=== PATIENT | female | born 1960 | race Caucasian/White ===

== ENCOUNTER 2020-05-14 07:36 | Day surgery (SDC) | payer MEDICAID, SELFPAY ==
[2020-05-08 10:54] VITALS: BMI 27.9
--- NOTE | 2020-05-09 08:16 | MHC.SHP ---
Pre-Procedural Eval Section A The patient is an INPATIENT: No The History & Physical has been completed within 30 days and I have reviewed it.: Yes Section B Chief Complaint: Left Eye Cataract Allergies: Allergies Allergy/AdvReac Type Severity Reaction Status Date / Time Sulfa (Sulfonamide Allergy Unknown RASH Verified 05/08/20 10:45 Antibiotics) [SULFA (SULFONAMIDE ANTIBIOTICS)] sulfamethoxazole Allergy Unknown rash Verified 05/08/20 10:45 morphine [MORPHINE] AdvReac Unknown VOMITING Verified 05/08/20 10:45 Plan Diagnosis/Plan: Unchanged Patient has been examined and remains a candidate for the planned procedure
--- NOTE | 2020-05-14 07:52 | HO.ANESPROP2 ---
[facility] Past Medical History Medical History (Updated 05/08/20 @ 10:54 by Marisabel Garcia) Arthritis Diabetes mellitus, insulin dependent (IDDM), controlled Hx of ectopic Hx of fall Peripheral neuropathy Surgical History Surgical History (Updated 05/08/20 @ 10:43 by Marisabel Garcia) History of Hx laparoscopic cholecystectomy Hx of appendectomy Hx of colonoscopy Hx of left breast biopsy Hx of non-cataract eye surgery Hx of ovarian cystectomy Hx of tubal ligation Social History Social History (Updated 05/08/20 @ 10:44 by Marisabel Garcia) Alcohol intake: never Smoking Status: Current every day smoker Cigarettes Per Day: 10 Years Smoked: 25 Advance Directives: No Advance Directives Information Provided: No Advance Directives on File: No Meds Allergies Allergy/AdvReac Type Severity Reaction Status Date / Time Sulfa (Sulfonamide Allergy Unknown RASH Verified 05/08/20 10:45 Antibiotics) [SULFA (SULFONAMIDE ANTIBIOTICS)] sulfamethoxazole Allergy Unknown rash Verified 05/08/20 10:45 morphine [MORPHINE] AdvReac Unknown VOMITING Verified 05/08/20 10:45 Home Medications Medication Instructions Recorded Confirmed Type diclofenac potassium 25 mg PO BID 05/08/20 05/08/20 History gabapentin 600 mg PO TID 05/08/20 05/08/20 History insulin glargine [Lantus Solostar 50 unit SUBCUT QPM 05/08/20 05/08/20 History U-100 Insulin] lisinopril 10 mg PO DAILY 05/08/20 05/08/20 History metformin 1,000 mg PO BID 05/08/20 05/08/20 History sitagliptin [Januvia] 100 mg PO DAILY 05/08/20 05/08/20 History Exam Exam Date and Time: May 14, 2020 0752 Height,Weight and Vital Signs: Height 5 ft 5 in Weight 76.204 kg Airway Mallampati Class: II TM Dist: >3cm Neck ROM: Full Denture: Upper Heart: RRR Lungs: CTA BL Assessment and Plan Assessment Anesthesia Assessment: Anesthesia Plan Discussed and Chart Reviewed Final Anesthetic Review NPO: No ASA Class: II Final Preanesthetic Review: Meds/Allgs Chart Reviewed and Consent Obtained/Reviewed Patient Risk: Low Procedure Risk: Low Anesthetic Plan Anesthetic Plan: MAC: Disposition: Standard PACU
[2020-05-14 08:01] LABS: Glucose, Whole Blood 115 mg/dL (60-115)
[2020-05-14 08:02] VITALS: BP 142/54; PULSE 83; RESP 16; TEMP 35.9; O2SAT 97
[2020-05-14] MEDS: Tetracaine HCl/PF 0.5% Oph Sol 4 ML DROPS 1 DROP EYE-LEFT (08:05)
[2020-05-14] MEDS: Tropicamide 1 % Ophth Sol 3 ML BTL 1 DROP EYE-LEFT ×3 (08:09→08:18)
[2020-05-14] MEDS: Lactated Ringers 500 ML 50 ML IV (08:10)
--- NOTE | 2020-05-14 09:54 | HO.PNOPHT ---
Ophthalmology Procedure Procedure Date of Service: 05/14/20 Ophthalmology Viscoelastic: Healon Duet Dual Pack Pro Ophthalmology Lenses: [id number] (20) Procedure Notes: PREOPERATIVE DIAGNOSIS: Decreased visual acuity left eye secondary to cataract POSTOPERATIVE DIAGNOSIS: Same PROCEDURE: Left cataract extraction with intraocular lens insertion SURGEON: Brad Soni M.D. ANESTHESIA: Topical/MAC ESTIMATED BLOOD LOSS: None COMPLICATIONS: None After obtaining informed consent, the patient was brought to the operation room suite and placed in the supine position. After adequate sedation per anesthesia, topical drops of Tetracaine were given to the left eye. The eye was then prepped and draped in the usual sterile fashion. The operating room microscope was then positioned over the operative eye and a lid speculum placed. A paracentesis was created. Viscoelastic was then instilled into the anterior chamber. A three plane incision was then created temporally, utilizing a 2.85 mm keratome. Capsulotomy forceps were then utilized to create a circular tear capsulotomy. Hydrodissection and hydrodelineation were carried out until adequate mobilization of the nucleus occurred. Phacoemulsification was then utilized to remove the dense central nucleus followed by removal of the cortical material utilizing the automated aspiration irrigation unit. Viscoat elastic was instilled into the posterior capsular bag followed by placement of a posterior chamber intraocular lens without difficulty. The residual Viscoat elastic was then removed utilizing the automated IA machine. The wound was check and found to be watertight. The patient tolerated the procedure well and the lid speculum was removed. Intracameral injection of Vigamox 0.1 mL followed by a subtenon injection of Kenalog-40 0.2 mL were administered. The patient will be seen in the a.m.
[2020-05-14 09:55] VITALS: BP 129/62; PULSE 82; RESP 15; TEMP 36.2; O2SAT 99
== END 2020-05-14 10:09 | disposition home or self-care (01) ==
PROVIDERS: Visit Provider Ophthalmology
PROC: (CPT 66985; principal; 2020-05-14 09:30)
DX: H25.12 Age-related nuclear cataract, left eye (principal); H54.7 Unspecified visual loss; E11.3 Type 2 diabetes mellitus with ophthalmic complications; E11.3591 Type 2 diabetes mellitus with proliferative diabetic retinopathy without macular edema, right eye; G62.9 Polyneuropathy, unspecified; M19.041 Primary osteoarthritis, right hand; Z79.4 Long term (current) use of insulin; Z79.899 Other long term (current) drug therapy; F17.210 Nicotine dependence, cigarettes, uncomplicated; Z90.49 Acquired absence of other specified parts of digestive tract
CPT/HCPCS: 66984; 82947; J2250; J3010; J3300; V2632

== ENCOUNTER 2020-05-28 08:02 | Day surgery (SDC) | payer MEDICAID, SELFPAY ==
[2020-05-08 10:57] VITALS: BMI 27.9
--- NOTE | 2020-05-18 16:35 | MHC.SHP ---
Pre-Procedural Eval Section A The patient is an INPATIENT: No The History & Physical has been completed within 30 days and I have reviewed it.: Yes Section B Chief Complaint: Right Eye Cataract Allergies: Allergies Allergy/AdvReac Type Severity Reaction Status Date / Time Sulfa (Sulfonamide Allergy Unknown RASH Verified 05/08/20 10:45 Antibiotics) [SULFA (SULFONAMIDE ANTIBIOTICS)] sulfamethoxazole Allergy Unknown rash Verified 05/08/20 10:45 morphine [MORPHINE] AdvReac Unknown VOMITING Verified 05/08/20 10:45 Plan Diagnosis/Plan: Unchanged Patient has been examined and remains a candidate for the planned procedure
--- NOTE | 2020-05-21 14:24 | HO.ANESPROP2 ---
Documented by User: Mariana Martínez 05/21/20 14:25 HPI - Anesthesia Eval Consult details Narrative: 59yo F for Cataract Extraction 1st eye: Fent 50, Midaz 2 PMFSH Past Medical History Medical History Arthritis Diabetes mellitus, insulin dependent (IDDM), controlled Hx of ectopic Hx of fall Peripheral neuropathy Surgical History Surgical History History of Hx laparoscopic cholecystectomy Hx of appendectomy Hx of colonoscopy Hx of left breast biopsy Hx of left cataract extraction Hx of non-cataract eye surgery Hx of ovarian cystectomy Hx of tubal ligation Social History Social History Alcohol intake: never Smoking Status: Current every day smoker Cigarettes Per Day: 10 Years Smoked: 25 Use of substances other than those prescribed or required for medical reasons: No Advance Directives: No Advance Directives Information Provided: No Advance Directives on File: No Meds Allergies Allergy/AdvReac Type Severity Reaction Status Date / Time Sulfa (Sulfonamide Allergy Unknown RASH Verified 05/08/20 10:45 Antibiotics) [SULFA (SULFONAMIDE ANTIBIOTICS)] sulfamethoxazole Allergy Unknown rash Verified 05/08/20 10:45 morphine [MORPHINE] AdvReac Unknown VOMITING Verified 05/08/20 10:45 Home Medications Medication Instructions Recorded Confirmed Type diclofenac potassium 25 mg PO BID 05/08/20 05/08/20 History gabapentin 600 mg PO TID 05/08/20 05/08/20 History insulin glargine [Lantus Solostar 50 unit SUBCUT QPM 05/08/20 05/08/20 History U-100 Insulin] lisinopril 10 mg PO DAILY 05/08/20 05/08/20 History metformin 1,000 mg PO BID 05/08/20 05/08/20 History sitagliptin [Januvia] 100 mg PO DAILY 05/08/20 05/08/20 History Exam Exam Date and Time: May 21, 2020 1424 Height,Weight and Vital Signs: Height 5 ft 5 in Weight 76.204 kg Assessment and Plan Assessment Anesthesia Assessment: Chart Reviewed Documented by User: Susy Lawrence 05/28/20 09:16 [facility] Past Medical History Medical History Arthritis Diabetes mellitus, insulin dependent (IDDM), controlled Hx of ectopic Hx of fall Peripheral neuropathy Surgical History Surgical History History of Hx laparoscopic cholecystectomy Hx of appendectomy Hx of colonoscopy Hx of left breast biopsy Hx of left cataract extraction Hx of non-cataract eye surgery Hx of ovarian cystectomy Hx of tubal ligation Social History Social History Alcohol intake: never Smoking Status: Current every day smoker Cigarettes Per Day: 10 Years Smoked: 25 Use of substances other than those prescribed or required for medical reasons: No Advance Directives: No Advance Directives Information Provided: No Advance Directives on File: No Meds Allergies Allergy/AdvReac Type Severity Reaction Status Date / Time Sulfa (Sulfonamide Allergy Unknown RASH Verified 05/08/20 10:45 Antibiotics) [SULFA (SULFONAMIDE ANTIBIOTICS)] sulfamethoxazole Allergy Unknown rash Verified 05/08/20 10:45 morphine [MORPHINE] AdvReac Unknown VOMITING Verified 05/08/20 10:45 Home Medications Medication Instructions Recorded Confirmed Type diclofenac potassium 25 mg PO BID 05/08/20 05/08/20 History gabapentin 600 mg PO TID 05/08/20 05/08/20 History insulin glargine [Lantus Solostar 50 unit SUBCUT QPM 05/08/20 05/08/20 History U-100 Insulin] lisinopril 10 mg PO DAILY 05/08/20 05/08/20 History metformin 1,000 mg PO BID 05/08/20 05/08/20 History sitagliptin [Januvia] 100 mg PO DAILY 05/08/20 05/08/20 History Exam Airway Mallampati Class: I TM Dist: >3cm Neck ROM: Full Denture: Upper Loose/Missing/Broken Teeth: Yes, Upper and Lower Heart: RRR Lungs: CTA Assessment and Plan Assessment Anesthesia Assessment: Anesthesia Plan Discussed and Chart Reviewed Final Anesthetic Review NPO: Yes ASA Class: II Final Preanesthetic Review: Meds/Allgs Chart Reviewed, Consent Obtained/Reviewed and Anes Risks/Benef Reviewed Patient Risk: Intermediate Procedure Risk: Low Anesthetic Plan Anesthetic Plan: MAC: Disposition: Standard PACU
[2020-05-28 08:18] VITALS: BP 133/68; PULSE 79; RESP 18; TEMP 36.3; O2SAT 100
[2020-05-28 09:07] LABS: Glucose, Whole Blood 154 mg/dL (60-115)
[2020-05-28] MEDS: Tetracaine HCl/PF 0.5% Oph Sol 4 ML DROPS 1 DROP EYE-RIGHT (09:19)
[2020-05-28] MEDS: Tropicamide 1 % Ophth Sol 3 ML BTL 1 DROP EYE-RIGHT ×3 (09:20→09:28)
[2020-05-28] MEDS: Lactated Ringers 500 ML 50 ML IV (09:26)
--- NOTE | 2020-05-28 10:05 | HO.PNOPHT ---
Ophthalmology Procedure Procedure Date of Service: 05/28/20 Ophthalmology Viscoelastic: Healon Duet Dual Pack Pro Ophthalmology Lenses: TECСЕРГЕЙ [id number] (20) Procedure Notes: PREOPERATIVE DIAGNOSIS: Decreased visual acuity right eye secondary to cataract POSTOPERATIVE DIAGNOSIS: Same PROCEDURE: Right cataract extraction with intraocular lens insertion SURGEON: Brad Soni M.D. ANESTHESIA: Topical/MAC ESTIMATED BLOOD LOSS: None COMPLICATIONS: None After obtaining informed consent, the patient was brought to the operating room suite and placed in the supine position. After adequate sedation per anesthesia, topical drops of Tetracaine were given to the right eye. The eye was then prepped and draped in the usual sterile fashion. The operating room microscope was then positioned over the operative eye and a lid speculum placed. A paracentesis was created. Viscoelastic was then instilled into the anterior chamber. A three plane incision was then created temporally, utilizing a 2.85 mm keratome. Capsulotomy forceps were then utilized to create a circular tear capsulotomy. Hydrodissection and hydrodelineation were carried out until adequate mobilization of the nucleus occurred. Phacoemulsification was then utilized to remove the dense central nucleus followed by removal of the cortical material utilizing the automated aspiration irrigation unit. Viscoelastic was instilled into the posterior capsular bag followed by placement of a posterior chamber intraocular lens without difficulty. The residual Viscoelastic was then removed utilizing the automated IA machine. The wound was checked and found to be watertight. The patient tolerated the procedure well and the lid speculum was removed. Intracameral injection of Vigamox 0.1 mL followed by a subtenon injection of Kenalog-40 0.2 mL were administered. The patient will be seen in the a.m.
[2020-05-28 10:06] VITALS: BP 135/66; PULSE 76; RESP 18; TEMP 36.2; O2SAT 100
== END 2020-05-28 10:30 | disposition home or self-care (01) ==
PROVIDERS: Visit Provider Ophthalmology
PROC: (CPT 66985; principal; 2020-05-28 10:20)
DX: H25.11 Age-related nuclear cataract, right eye (principal); H54.7 Unspecified visual loss; E11.3591 Type 2 diabetes mellitus with proliferative diabetic retinopathy without macular edema, right eye; E11.3 Type 2 diabetes mellitus with ophthalmic complications; Z79.4 Long term (current) use of insulin; F17.210 Nicotine dependence, cigarettes, uncomplicated; Z88.0 Allergy status to penicillin; Z88.8 Allergy status to other drugs, medicaments and biological substances
CPT/HCPCS: 66984; 82947; J2250; J3010; J3300; V2632

== ENCOUNTER 2020-08-17 08:08 | Outpatient (RCR) | payer MEDICARE, OTHER, MEDICAID, SELFPAY | END 2021-04-05 15:15 | disposition home or self-care (01) | LOC: HO.WCC 08:08 | PROVIDERS: PCP Internal Medicine; Visit Provider Physician Assistant | DX: E11.621 Type 2 diabetes mellitus with foot ulcer (principal); E11.51 Type 2 diabetes mellitus with diabetic peripheral angiopathy without gangrene; L97.512 Non-pressure chronic ulcer of other part of right foot with fat layer exposed; E11.40 Type 2 diabetes mellitus with diabetic neuropathy, unspecified; F17.200 Nicotine dependence, unspecified, uncomplicated; L84 Corns and callosities; Z79.4 Long term (current) use of insulin | CPT/HCPCS: 11042; 15275; 97597; 99212; Q4160 ==

== ENCOUNTER 2020-09-03 09:58 | Outpatient (REF) | payer OTHER, SELFPAY ==
[2020-09-03 11:43] LABS: Estimated Average Glucose 200 mg/dL; Hemoglobin A1c % 8.6 %
[2020-09-03 11:44] LABS: Hematocrit 41.2 % (37-47); Hemoglobin 13.1 g/dl (12.0-16.0); Mean Corpuscular HGB Conc 31.8 g/dl (31.0-35.0); Mean Corpuscular Hemoglobin 28.6 pg (27.0-33.0); Mean Platelet Volume 9.7 fL (9.4-12.3); Platelet Count 253 X10*3/uL (160-400); Red Blood Count 4.58 X10*6/uL (4.20-5.50); Red Cell Distribution Width 14.3 % (11.0-16.0); White Blood Count 6.8 X10*3/uL (4.8-10.8)
[2020-09-03 12:04] LABS: Thyroid Stimulating Hormone 1.66 uIU/mL (0.32-4.0)
[2020-09-03 12:08] LABS: Alanine Aminotransferase 16 U/L (0-31); Albumin Level 4.5 g/dL (3.5-5.0); Alkaline Phosphatase 98 U/L (39-117); Anion Gap 14 (12-20); Aspartate Amino Transferase 16 U/L (5-31); Bilirubin Direct < 0.2 mg/dL (0.0-0.5); Bilirubin Total 0.2 mg/dL (0.0-1.0); Blood Urea Nitrogen 29 mg/dL (9-16); Calcium 9.6 mg/dL (8.4-10.2); Carbon Dioxide 25 mmol/L (22-29); Chloride 105 mmol/L (96-108); Cholesterol 217 mg/dL; Estimated Glomerular Filt Rate 53; Glucose Random 153 mg/dL (60-115); HDL Cholesterol 52 mg/dL; LDL Cholesterol Calculated 116 mg/dl; Potassium 5.7 mmol/L (3.3-5.1); Sodium 138 mmol/L (135-145); Total Protein 8.1 g/dL (6.5-8.0); Triglycerides 247 mg/dL
[2020-09-03 12:39] LABS: Vitamin B12 315 pg/mL (200-900)
[2020-09-07 14:21] LABS: Vitamin D 25-OH, D2 <4 ng/mL; Vitamin D 25-OH, D3 25 ng/mL; Vitamin D 25-OH, Total 25 ng/mL (30-100)
== END 2020-09-03 09:59 | disposition home or self-care (01) ==
LOC: HO.HMGCLDS 09:58
PROVIDERS: PCP Internal Medicine; Visit Provider Internal Medicine
DX: E11.9 Type 2 diabetes mellitus without complications (principal); Z79.4 Long term (current) use of insulin; S91.302A Unspecified open wound, left foot, initial encounter; X58.XXXA Exposure to other specified factors, initial encounter; Y93.9 Activity, unspecified; Y92.9 Unspecified place or not applicable; Y99.9 Unspecified external cause status
CPT/HCPCS: 36415; 80048; 80061; 80076; 82306; 82607; 82746; 83036; 84443; 85027

== ENCOUNTER 2020-09-06 09:43 | Outpatient (REF) | payer OTHER, SELFPAY ==
--- NOTE | ~2020-09-06 | US_ITS ---
EXAMINATION: COLOR-FLOW DUPLEX IMAGING OF THE UNILATERAL RIGHT LOWER EXTREMITY ARTERIAL SYSTEM. VELOCITY MEASUREMENTS THROUGHOUT THE FEMORAL ARTERIES CLINICAL INFORMATION: This is a 59-year-old female with history of diabetes. Right foot ulcer. Interventional Radiologist: Suman Shepard M.D., F.S.I.R., F.A.C.R. RIGHT FEMORAL RUNOFF VELOCITIES: The right common femoral artery measures 115 cm/s and triphasic. The right profunda femoral artery is 86 cm/s and is triphasic. Right proximal superficial femoral artery measures 208 cm/s and biphasic. Mid superficial femoral artery is 137 cm/s and triphasic. Distal right superficial femoral artery measures 152 cm/s and is triphasic. Right popliteal velocity measures 120 cm/s and is triphasic. The posterior tibial artery velocity measures 87 cm/s and was triphasic. US/US arterial duplex LE RT IMPRESSION: 1. There is a hemodynamically significant stenosis in the proximal right superficial femoral artery with antegrade velocities and biphasic waveforms.
== END 2020-09-06 09:44 | disposition home or self-care (01) ==
LOC: HO.US 09:43
PROVIDERS: Visit Provider Physician Assistant
DX: E11.621 Type 2 diabetes mellitus with foot ulcer (principal); E11.51 Type 2 diabetes mellitus with diabetic peripheral angiopathy without gangrene; L97.512 Non-pressure chronic ulcer of other part of right foot with fat layer exposed; Z72.0 Tobacco use
CPT/HCPCS: 93926

== ENCOUNTER → 2020-09-18 10:23 | Outpatient (BNVA) | payer OTHER, SELFPAY | PROVIDERS: PCP Internal Medicine; Visit Provider Surgery Vascular Surgery | DX: I73.9 Peripheral vascular disease, unspecified (principal) | CPT/HCPCS: 99202 ==

== ENCOUNTER 2020-12-03 08:16 | Outpatient (REF) | payer OTHER, SELFPAY ==
--- NOTE | ~2020-12-03 | US_ITS ---
EXAMINATION: US NONINVASIVE ASSESSMENT OF THE ARTERIES OF BOTH LOWER EXTREMITIES INCLUDING PVR EXAM AND BILATERAL LOWER EXTREMITY DUPLEX CLINICAL INFORMATION: Peripheral vascular disease, unspecified. COMPARISON: Ultrasound 09/06/2020 TECHNIQUE: Ankle pulse volume recordings, ankle pressure measurements and ankle brachial indices were obtained of the lower extremity arterial system bilaterally in addition to duplex Doppler techniques with wave form analysis and measurement of velocities in the common femoral, profunda femoral, superficial femoral, popliteal, tibial and peroneal arteries. The study was performed only at rest. FINDINGS: RIGHT LEG 1. Right Ankle-Brachial Index: 1.27. >0.97-1.25 = normal - no significant arterial disease 0.75-0.96 = mild peripheral arterial disease 0.5-0.74 = moderate peripheral arterial disease <0.50 = severe peripheral arterial disease <0.30 = critical arterial disease 2. Segmental Pressures (mmHg): Ankle: PT 190, DP 178 3. PVR Waveforms: Ankle: Loss of dicrotic notch 4. Direct Duplex: Common femoral artery: 124 cm/s, Multiphasic Profunda femoris artery: 101 cm/s, Multiphasic Superficial femoral artery (proximal): 215 cm/s, Multiphasic Superficial femoral artery (mid): 152 cm/s, Multiphasic Superficial femoral artery (distal): 128 cm/s, Multiphasic Popliteal artery: 174 cm/s, Multiphasic Mid posterior tibial artery: 146 cm/s, Multiphasic Peroneal artery: 69.8 cm/s, Multiphasic LEFT LE. Left Ankle-Brachial Index: 1.11 (higher of the DP/PT) >0.97-1.25 = normal - no significant arterial disease 0.75-0.96 = mild peripheral arterial disease 0.5-0.74 = moderate peripheral arterial disease <0.50 = severe peripheral arterial disease <0.30 = critical arterial disease 2. Segmental Pressures: Ankle: PT 162, DP 167 3. PVR Waveforms: Ankle: Loss of dicrotic notch, decreased amplitude when compared with the right 4. Direct Duplex: Common femoral artery: 129 cm/s, Biphasic Profunda femoris artery: 143 cm/s, Biphasic Superficial femoral artery (proximal): 145 cm/s, Biphasic Superficial femoral artery (mid): 126 cm/s, Biphasic Superficial femoral artery (distal): 211 cm/s, Biphasic Popliteal artery: 90.3 cm/s, Biphasic Posterior tibial artery: 109 cm/s, Multiphasic Peroneal artery: 53 cm/s, Biphasic US/US arterial duplex LE BI IMPRESSION: Right ankle-brachial index 1.27, left ankle-brachial index 1.11. PVR waveforms at the ankle demonstrate loss of dicrotic notch bilaterally with decreased amplitude on the left. On direct duplex, there is multiphasic flow throughout the right lower extremity. On the left, there are biphasic waveforms throughout much of the left lower extremity. Findings suggest multifocal mild disease bilaterally, left greater than right. In particular, elevated velocity at the right proximal SFA and the distal left SFA may be suggestive of focal disease at these locations.
== END 2020-12-03 08:17 | disposition home or self-care (01) ==
LOC: HO.US 08:16
PROVIDERS: PCP Internal Medicine; Visit Provider Surgery Vascular Surgery
DX: I70.213 Atherosclerosis of native arteries of extremities with intermittent claudication, bilateral legs (principal)
CPT/HCPCS: 93923; 93925

== ENCOUNTER 2020-12-18 08:56 | Outpatient (REF) | payer OTHER, SELFPAY ==
[2020-12-18 11:12] LABS: Glucose Urine UA NEG (NEG); Leukocyte Esterase Urine NEG (NEG); Nitrite Urine NEG (NEG); Urine Blood NEG (NEG); Urine Ketones NEG (NEG); Urine Protein NEG (NEG-TRACE)
[2020-12-18 11:18] LABS: Appearance Urine CLEAR; Color Urine YELLOW
[2020-12-18 11:20] LABS: Hematocrit 36.1 % (37-47); Hemoglobin 11.8 g/dl (12.0-16.0); Mean Corpuscular HGB Conc 32.7 g/dl (31.0-35.0); Mean Corpuscular Volume 88.7 fL (80-98); Mean Platelet Volume 9.6 fL (9.4-12.3); Platelet Count 255 X10*3/uL (160-400); Red Blood Count 4.07 X10*6/uL (4.20-5.50); Red Cell Distribution Width 14.5 % (11.0-16.0); White Blood Count 6.9 X10*3/uL (4.8-10.8)
[2020-12-18 11:26] LABS: Estimated Average Glucose 192 mg/dL; Hemoglobin A1c % 8.3 %
[2020-12-18 11:42] LABS: Creatinine Urine 53.29 mg/dL; Microalbum/Creatinine Ratio Ur 16.8 ug/mg cr
[2020-12-18 11:56] LABS: Alanine Aminotransferase 16 U/L (0-31); Albumin Level 4.2 g/dL (3.5-5.0); Alkaline Phosphatase 87 U/L (39-117); Anion Gap 13 (12-20); Aspartate Amino Transferase 18 U/L (5-31); Bilirubin Direct < 0.2 mg/dL (0.0-0.5); Bilirubin Total 0.3 mg/dL (0.0-1.0); Blood Urea Nitrogen 18 mg/dL (9-16); C Reactive Protein 0.33 mg/dL (< or = 0.50); Calcium 9.5 mg/dL (8.4-10.2); Carbon Dioxide 26 mmol/L (22-29); Chloride 104 mmol/L (96-108); Cholesterol 210 mg/dL; Estimated Glomerular Filt Rate > 60; Glucose Random 145 mg/dL (60-115); HDL Cholesterol 52 mg/dL; LDL Cholesterol Calculated 107 mg/dl; Potassium 6.1 mmol/L (3.3-5.1); Sodium 137 mmol/L (135-145); Total Protein 7.2 g/dL (6.5-8.0); Triglycerides 257 mg/dL
[2020-12-18 12:19] LABS: Erythrocyte Sedimentation Rate 34 MM/HR (0-20)
== END 2020-12-18 08:57 | disposition home or self-care (01) ==
LOC: HO.LAB 08:56
PROVIDERS: Physician Assistant; Absent Provider Internal Medicine; PCP Internal Medicine; Visit Provider Surgery Vascular Surgery
DX: I73.9 Peripheral vascular disease, unspecified (principal); E11.621 Type 2 diabetes mellitus with foot ulcer; L97.509 Non-pressure chronic ulcer of other part of unspecified foot with unspecified severity; Z79.4 Long term (current) use of insulin
CPT/HCPCS: 36415; 80048; 80061; 80076; 81003; 82043; 83036; 84134; 85027; 85652; 86140; 99212

== ENCOUNTER 2021-01-18 13:18 | Outpatient (REF) | payer MEDICARE, MEDICAID, SELFPAY ==
--- NOTE | ~2021-01-18 | MM_ITS ---
EXAMINATION: MM SCREENING DIGITAL BREAST TOMOSYNTHESIS, BILATERAL CLINICAL INFORMATION: Screening. Asymptomatic. The lifetime risk of breast cancer based on the Tyrer-Cuzick Model is 5%. COMPARISON: Mammography: 10/31/2019, 09/29/2014, 04/15/2013 TECHNIQUE: Digital breast tomosynthesis is performed in both the craniocaudal and mediolateral oblique views along with computer-aided detection (CAD). Synthesized 2D images are generated from the tomosynthesis. FINDINGS: There are scattered areas of fibroglandular density (ACR BI-RADS breast composition Category b). Parenchymal pattern is similar to prior studies. There is benign stable parenchymal asymmetry inferior left breast similar to prior exams with central biopsy clip marker. Neither breast shows developing density or interval mass or architectural abnormality. The axilla and skin contours are unremarkable. MM/MM tomosynthesis screening BI IMPRESSION: No mammographic evidence of malignancy. ASSESSMENT: BI-RADS 2: Benign RECOMMENDATION: Routine annual mammography screening. This patient's information was entered into a reminder system with a target due date for their next mammogram.
== END 2021-01-18 13:19 | disposition home or self-care (01) ==
LOC: HO.MAMMO 13:18
PROVIDERS: PCP Internal Medicine; Visit Provider Internal Medicine
DX: Z12.31 Encounter for screening mammogram for malignant neoplasm of breast (principal)
CPT/HCPCS: 77063; 77067

== ENCOUNTER 2021-03-27 06:56 | Outpatient (REF) | payer MEDICARE, MEDICAID, SELFPAY ==
--- NOTE | ~2021-03-27 | XR_ITS ---
EXAMINATION: XR FOOT, RIGHT CLINICAL INFORMATION: Nonhealing right foot ulcer. COMPARISON: Radiographs dated 10/22/2015. TECHNIQUE: AP, lateral, and oblique views of the right foot. FINDINGS: Bony alignment and mineralization are normal. No fracture or dislocation is seen. There are no focal bony erosive changes or periosteal thickening.. Alignment is anatomic. Joint spaces are maintained. There is no right ankle joint effusion. Boehler's angle is normal. There are tiny posterior and small plantar calcaneal spurs. There are degenerative changes of the dorsal midfoot. In the plantar soft tissues adjacent to the first metatarsophalangeal joint, a 2 mm linear radiodensity is seen, new from 10/22/2015. There is dressing material overlapping the great toe. XR/XR foot RT min 3V IMPRESSION: 1. No fracture or dislocation is seen. 2. There is no focal bone erosion, periosteal thickening or soft tissue gas seen to suggest osteomyelitis. 3. A tiny linear radiodense foreign body is seen in the distal plantar soft tissues, as above. 4. There are calcaneal spurs.
[2021-03-27 07:34] LABS: Hematocrit 38.6 % (37-47); Hemoglobin 12.5 g/dl (12.0-16.0); Mean Corpuscular HGB Conc 32.4 g/dl (31.0-35.0); Mean Corpuscular Hemoglobin 29.3 pg (27.0-33.0); Mean Corpuscular Volume 90.6 fL (80-98); Mean Platelet Volume 9.4 fL (9.4-12.3); Platelet Count 257 X10*3/uL (160-400); Red Blood Count 4.26 X10*6/uL (4.20-5.50); White Blood Count 6.2 X10*3/uL (4.8-10.8)
[2021-03-27 07:37] LABS: Appearance Urine CLEAR; Color Urine YELLOW; Glucose Urine UA NEG (NEG); Leukocyte Esterase Urine NEG (NEG); Nitrite Urine NEG (NEG); PH 5.5 (5.0-8.0); Urine Blood TRACE (NEG); Urine Ketones NEG (NEG); Urine Protein NEG (NEG-TRACE)
[2021-03-27 07:54] LABS: Alanine Aminotransferase 19 U/L (0-31); Albumin Level 4.2 g/dL (3.5-5.0); Alkaline Phosphatase 88 U/L (39-117); Anion Gap 12 (12-20); Aspartate Amino Transferase 17 U/L (5-31); Bilirubin Direct < 0.2 mg/dL (0.0-0.5); Bilirubin Total < 0.2 mg/dL (0.0-1.0); Blood Urea Nitrogen 22 mg/dL (9-16); Calcium 9.5 mg/dL (8.4-10.2); Carbon Dioxide 25 mmol/L (22-29); Chloride 104 mmol/L (96-108); Cholesterol 205 mg/dL; Estimated Glomerular Filt Rate 55; Glucose Random 142 mg/dL (60-115); HDL Cholesterol 47 mg/dL; LDL Cholesterol Calculated 111 mg/dl; Potassium 5.4 mmol/L (3.3-5.1); Sodium 136 mmol/L (135-145); Total Protein 7.3 g/dL (6.5-8.0); Triglycerides 235 mg/dL
[2021-03-27 08:05] LABS: Bacteria Urine TRACE /LPF; Squamous Epithelial Cell Urine 2+ /LPF; WBC Urine 0-2 /HPF (0-4)
[2021-03-27 08:13] LABS: Thyroid Stimulating Hormone 2.27 uIU/mL (0.32-4.0)
[2021-03-27 09:04] LABS: Creatinine Urine 70.32 mg/dL; Microalbum/Creatinine Ratio Ur 36.9 ug/mg cr
== END 2021-03-27 06:57 | disposition home or self-care (01) ==
LOC: HO.XRAY 06:56
PROVIDERS: Absent Provider Physician Assistant; PCP Internal Medicine; Visit Provider Internal Medicine
DX: I73.9 Peripheral vascular disease, unspecified (principal); E11.621 Type 2 diabetes mellitus with foot ulcer; L97.509 Non-pressure chronic ulcer of other part of unspecified foot with unspecified severity; F17.200 Nicotine dependence, unspecified, uncomplicated; I10 Essential (primary) hypertension; E11.39 Type 2 diabetes mellitus with other diabetic ophthalmic complication; H54.8 Legal blindness, as defined in USA; S91.301D Unspecified open wound, right foot, subsequent encounter; X58.XXXD Exposure to other specified factors, subsequent encounter
CPT/HCPCS: 36415; 73630; 80048; 80061; 80076; 81001; 82043; 84443; 85027

== ENCOUNTER 2021-04-10 14:58 | Outpatient (REF) | payer MEDICARE, MEDICAID, SELFPAY ==
--- NOTE | ~2021-04-10 | MR_ITS ---
EXAMINATION: MR FOOT WITHOUT AND WITH CONTRAST, RIGHT CLINICAL INFORMATION: Right foot great toe wound. COMPARISON: Right foot radiographs dated 03/27/2021. TECHNIQUE: Multisequence MR imaging of the right foot was obtained before and after the IV administration of 8 mL Gadavist contrast on a high-field strength scanner. FINDINGS: BONE: Decreased T1 and increased T2 signal within the distal aspect of the 1st distal phalanx. Periosteal reaction along the plantar aspect of the 1st distal phalanx. Full-thickness articular cartilage loss with joint space narrowing and prominent subchondral cystic change at the 2nd and 3rd tarsometatarsal joints. Prominent adjacent marrow edema. Soft tissue edema extending along the diaphyses of the 2nd and 3rd metatarsals. Findings may be related to degenerative arthritis or indicate a stress reaction. No associated fracture line. MUSCLES/TENDONS: The visualized flexor and extensor tendons are intact. Mild muscle atrophy. LIGAMENTS: Intact Lisfranc ligament. SOFT TISSUES: Soft tissue ulceration along the plantar aspect of the great toe with soft tissue enhancement, consistent with cellulitis. No organized fluid collection/abscess formation. MR/MR foot RT wo/w con IMPRESSION: 1. Soft tissue ulceration and cellulitis along the plantar aspect of the great toe. Underlying marrow edema and postcontrast enhancement as well as periosteal reaction, consistent with osteomyelitis. 2. 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 Prominent adjacent marrow edema extending distally within the metatarsal diaphysis. Findings may be related to degenerative arthritis or represent stress reactions.
== END 2021-04-10 14:59 | disposition home or self-care (01) ==
LOC: HO.MRI 14:58
PROVIDERS: Visit Provider Physician Assistant
DX: E11.621 Type 2 diabetes mellitus with foot ulcer (principal)
CPT/HCPCS: 73720; A9585

== ENCOUNTER 2021-05-13 11:20 | Outpatient (REF) | payer MEDICARE, MEDICAID, SELFPAY ==
--- NOTE | ~2021-05-13 | US_ITS ---
EXAMINATION: US EXTRACRANIAL CAROTID DUPLEX, BILATERAL CLINICAL INFORMATION: Occlusion and stenosis. COMPARISON: None TECHNIQUE: Real-time ultrasound and Doppler techniques (integrating B-mode 2-D vascular images, Doppler spectral analysis and color-flow Doppler imaging) were utilized to interrogate the extracranial carotid arteries, the vertebral arteries and proximal subclavian arteries bilaterally. The degree of stenosis is determined by criteria similar to NASCET. FINDINGS: Right Side: 1. There is soft atherosclerotic plaque seen in the bifurcation/proximal ICA region. 2. The common carotid artery PSV proximally is 115 cm/s and distally 69.8 cm/s. 3. The proximal internal carotid artery velocities are 62.8 cm/s systolic and 19.3 cm/s diastolic. 4. The proximal external carotid artery PSV is 94.9 cm/s. 5. The vertebral artery shows antegrade flow. 6. The subclavian artery waveforms are normal. Left Side: 1. There is soft atherosclerotic plaque seen in the bifurcation/proximal ICA region. 2. The common carotid artery PSV proximally is 115 cm/s and distally 70.8 cm/s. 3. The proximal internal carotid artery velocities are 75.7 cm/s systolic and 20.0 cm/s diastolic. 4. The proximal external carotid artery PSV is 84.0 cm/s. 5. The vertebral artery shows antegrade flow. 6. The subclavian artery waveforms are normal. US/US carotid duplex BI IMPRESSION: 1. RIGHT: No hemodynamically significant stenosis. 2. LEFT: No hemodynamically significant stenosis.
== END 2021-05-13 11:21 | disposition home or self-care (01) ==
LOC: HO.US 11:20
PROVIDERS: PCP Internal Medicine; Visit Provider Surgery Vascular Surgery
DX: I65.23 Occlusion and stenosis of bilateral carotid arteries (principal)
CPT/HCPCS: 93880

== ENCOUNTER 2021-06-03 09:00 | Outpatient (RCR) | payer MEDICARE, MEDICAID, SELFPAY ==
--- NOTE | ~2021-06-03 | XR_ITS ---
EXAMINATION: XR CHEST CLINICAL INFORMATION: Prescreening COMPARISON: CT 08/31/2019 TECHNIQUE: 2 views of the chest were obtained. FINDINGS: The lungs are well expanded. There is no focal consolidation, edema, or effusion. No pneumothorax. The cardiomediastinal silhouette is within normal limits. No acute osseous abnormality. Mild degenerative change of the spine. XR/XR chest 2V IMPRESSION: Clear lungs.
[2021-09-27 11:01] LABS: MANUAL DIFF FLAG NO
[2021-09-27 11:17] LABS: Basophils Absolute Auto 0.1 X10*3/uL (0.0-0.2); Basophils Percent Auto 0.8 % (0-2); Eosinophils Absolute Auto 0.9 X10*3/uL (0.0-0.4); Eosinophils Percent Auto 9.9 % (0-4); Hematocrit 38.2 % (37.0-47.0); Hemoglobin 12.3 g/dl (12.0-16.0); Imm Gran Abs Auto 0.05 X10*3/uL (0.00-0.03); Imm Gran Pct Auto 0.5 % (0.0-0.4); Lymphocytes Percent Auto 31.8 % (20-40); Mean Corpuscular HGB Conc 32.2 g/dl (31.0-35.0); Mean Corpuscular Hemoglobin 29.6 pg (27.0-33.0); Mean Corpuscular Volume 91.8 fL (80.0-98.0); Mean Platelet Volume 9.7 fL (9.4-12.3); Monocytes Absolute Auto 0.5 X10*3/uL (0.1-1.2); Monocytes Percent Auto 5.1 % (2-11); Neutrophils Absolute Auto 4.8 x10*3/uL (2.0-8.3); Neutrophils Percent Auto 51.9 % (45-73); Platelet Count 216 X10*3/uL (160-400); Red Blood Count 4.16 X10*6/uL (4.20-5.50); Red Cell Distribution Width 14.7 % (11.0-16.0); White Blood Count 9.3 X10*3/uL (4.8-10.8)
[2021-09-27 11:29] LABS: Estimated Average Glucose 189 mg/dL; Hemoglobin A1c % 8.2 %
[2021-09-27 11:45] LABS: Anion Gap 12 (12-20); Blood Urea Nitrogen 26 mg/dL (9-16); C Reactive Protein 0.19 mg/dL (< or = 0.50); Calcium 9.7 mg/dL (8.4-10.2); Carbon Dioxide 25 mmol/L (22-29); Chloride 104 mmol/L (96-108); Estimated Glomerular Filt Rate > 60; Glucose Random 105 mg/dL (60-115); Potassium 5.4 mmol/L (3.3-5.1); Sodium 136 mmol/L (135-145)
[2021-09-27 11:56] LABS: Erythrocyte Sedimentation Rate 19 MM/HR (0-20)
== END 2022-03-19 12:24 | disposition home or self-care (01) ==
LOC: HO.WCC 09:00
PROVIDERS: PCP Internal Medicine; Visit Provider Physician Assistant
DX: E11.621 Type 2 diabetes mellitus with foot ulcer (principal); L97.512 Non-pressure chronic ulcer of other part of right foot with fat layer exposed; E11.69 Type 2 diabetes mellitus with other specified complication; M86.371 Chronic multifocal osteomyelitis, right ankle and foot; E11.40 Type 2 diabetes mellitus with diabetic neuropathy, unspecified; E11.319 Type 2 diabetes mellitus with unspecified diabetic retinopathy without macular edema; I10 Essential (primary) hypertension; F17.210 Nicotine dependence, cigarettes, uncomplicated
CPT/HCPCS: 11042; 15275; 36415; 71046; 80048; 83036; 84134; 85025; 85652; 86140; 87071; 87205; 99183; 99212; Q4187

== ENCOUNTER → 2021-06-18 10:58 | Outpatient (BNVA) | payer MEDICARE, MEDICAID, SELFPAY | PROVIDERS: PCP Internal Medicine; Visit Provider Internal Medicine | DX: E11.69 Type 2 diabetes mellitus with other specified complication (principal); M86.9 Osteomyelitis, unspecified | CPT/HCPCS: 99202 ==

== ENCOUNTER → 2021-07-10 13:16 | Outpatient (BNVA) | payer MEDICARE, MEDICAID, SELFPAY | PROVIDERS: PCP Internal Medicine; Visit Provider Internal Medicine | DX: M86.9 Osteomyelitis, unspecified (principal); E11.621 Type 2 diabetes mellitus with foot ulcer; L97.519 Non-pressure chronic ulcer of other part of right foot with unspecified severity | CPT/HCPCS: 99212 ==

== ENCOUNTER 2021-08-07 10:24 | Outpatient (REF) | payer MEDICARE, MEDICAID, SELFPAY ==
--- NOTE | ~2021-08-07 | US_ITS ---
EXAMINATION: NONINVASIVE ASSESSMENT OF THE ARTERIES OF BOTH LOWER EXTREMITIES WITH ANKLE PRESSURE MEASUREMENTS, ANKLE BRACHIAL INDICES, PVR MEASUREMENTS AND BILATERAL LOWER EXTREMITY DUPLEX. CLINICAL INFORMATION: Peripheral vascular disease. TECHNIQUE: Ankle pressure measurements, ankle brachial indices and PVR tracings were obtained of the lower extremity arterial system bilaterally. In addition, duplex Doppler techniques with wave form analysis and measurement of velocities in the common femoral, profunda femoral, superficial femoral, popliteal and tibial arteries was performed. The study was performed only at rest. COMPARISON: 12/03/2020 FINDINGS: NONINVASIVE ASSESSMENT OF THE ARTERIES OF BOTH LOWER EXTREMITIES WITH ABIs: RIGHT LEG: Right ankle-brachial index: 1.08 PVR (ankle): Normal LEFT LEG: Ankle-brachial index: 1.03 PVR (ankle): Normal BILATERAL LOWER EXTREMITY DUPLEX ULTRASOUND: RIGHT LEG: Common femoral artery: 134 cm/s, Diastolic flow reversal: Yes Profunda femoris artery: 75 cm/s, Diastolic flow reversal: Yes Superficial femoral artery (proximal): 147 cm/s, Diastolic flow reversal: Yes Superficial femoral artery (mid): 151 cm/s, Diastolic flow reversal: Yes Superficial femoral artery (distal): 113 cm/s, Diastolic flow reversal: Yes Popliteal artery: 109 cm/s, Diastolic flow reversal: Yes Posterior tibial artery: 145 cm/s, Diastolic flow reversal: Yes LEFT LEG: Common femoral artery: 125 cm/s, Diastolic flow reversal: Yes Profunda femoris artery: 108 cm/s, Diastolic flow reversal: Yes Superficial femoral artery (proximal): 120 cm/s, Diastolic flow reversal: Yes Superficial femoral artery (mid): 117 cm/s, Diastolic flow reversal: Yes Superficial femoral artery (distal): 143 cm/s, Diastolic flow reversal: Yes Popliteal artery: 137 cm/s, Diastolic flow reversal: Yes Posterior tibial artery: 108 cm/s, Diastolic flow reversal: Yes US/US arterial duplex LE BI IMPRESSION: RIGHT LEG: RINA 1.08. No evidence of any hemodynamically significant stenosis on duplex. LEFT LEG: RINA 1.03. No evidence of any hemodynamically significant stenosis on duplex. RINA Reference: - >0.97-1.25 = normal - no significant arterial disease - 0.75-0.96 = mild peripheral arterial disease - 0.5-0.74 = moderate peripheral arterial disease - <0.50 = severe peripheral arterial disease
== END 2021-08-07 10:25 | disposition home or self-care (01) ==
LOC: HO.US 10:24
PROVIDERS: Visit Provider Surgery Vascular Surgery
DX: I73.9 Peripheral vascular disease, unspecified (principal)
CPT/HCPCS: 93923; 93925

== ENCOUNTER → 2021-09-03 10:06 | Outpatient (BNVA) | payer MEDICARE, MEDICAID, SELFPAY | PROVIDERS: PCP Internal Medicine; Visit Provider Surgery Vascular Surgery | DX: I73.9 Peripheral vascular disease, unspecified (principal) | CPT/HCPCS: 99212 ==

== ENCOUNTER 2022-01-03 20:27 | Emergency (ER) | payer MEDICARE, MEDICAID, SELFPAY ==
--- NOTE | 2022-01-03 20:31 | ECG_ITS ---
Test Reason : chest pressure Blood Pressure : / mmHG Vent. Rate : 094 BPM Atrial Rate : 094 BPM P-R Int : 144 ms QRS Dur : 078 ms QT Int : 338 ms P-R-T Axes : 002 027 044 degrees QTc Int : 422 ms Normal sinus rhythm Normal ECG When compared with ECG of 09-JUL-2010 20:57, QRS axis Shifted left Criteria for Lateral infarct are no longer Present Nonspecific T wave abnormality, improved in Inferior leads Referred By: Generic ED Physician Electronically Signed By:Clemente Mueller
[2022-01-03 20:32] VITALS: BP 153/67; PULSE 93; RESP 18; TEMP 37.2; O2SAT 96; BMI 29.2
[2022-01-03 21:04] LABS: MANUAL DIFF FLAG NO
[2022-01-03 21:06] LABS: Basophils Percent Auto 0.3 % (0-2); Eosinophils Absolute Auto 0.3 X10*3/uL (0.0-0.4); Eosinophils Percent Auto 2.8 % (0-4); Hematocrit 35.8 % (37.0-47.0); Hemoglobin 11.9 g/dl (12.0-16.0); Imm Gran Abs Auto 0.02 X10*3/uL (0.00-0.03); Imm Gran Pct Auto 0.2 % (0.0-0.4); Lymphocytes Absolute Auto 3.2 X10*3/uL (1.2-4.9); Mean Corpuscular HGB Conc 33.2 g/dl (31.0-35.0); Mean Corpuscular Hemoglobin 29.2 pg (27.0-33.0); Mean Platelet Volume 9.1 fL (9.4-12.3); Monocytes Absolute Auto 0.6 X10*3/uL (0.1-1.2); Monocytes Percent Auto 6.8 % (2-11); Neutrophils Absolute Auto 4.8 x10*3/uL (2.0-8.3); Neutrophils Percent Auto 53.9 % (45-73); Platelet Count 228 X10*3/uL (160-400); Red Blood Count 4.07 X10*6/uL (4.20-5.50)
[2022-01-03 21:23] LABS: Alanine Aminotransferase 22 U/L (0-31); Albumin Level 4.3 g/dL (3.5-5.0); Alkaline Phosphatase 84 U/L (39-117); Anion Gap 13 (12-20); Aspartate Amino Transferase 24 U/L (5-31); Bilirubin Total 0.3 mg/dL (0.0-1.0); Blood Urea Nitrogen 34 mg/dL (9-16); Calcium 9.7 mg/dL (8.4-10.2); Carbon Dioxide 25 mmol/L (22-29); Chloride 104 mmol/L (96-108); Creatinine Clr Calc Pharmacy 44.1; Estimated Glomerular Filt Rate 39; Glucose Random 83 mg/dL (60-115); Potassium 5.2 mmol/L (3.3-5.1); Sodium 137 mmol/L (135-145); Total Protein 7.3 g/dL (6.5-8.0)
[2022-01-03 21:29] LABS: Troponin-I High Sensitivity 10.7 ng/L (<3.5-17.0)
[2022-01-03 23:38] VITALS: BP 140/72; PULSE 86; RESP 16; O2SAT 98
--- NOTE | 2022-01-03 23:39 | ED_ITS ---
HPI - Chest Pain General Chief Complaint: Chest Pain Stated Complaint: Chest discomfort/?High blood pressure Time Seen by Provider: 01/03/22 23:39 Source: patient Mode of arrival: ambulatory Limitations: no limitations History of Present Illness HPI narrative: Patient presents emergency department for evaluation of chest pain. She reports earlier this evening after carrying a load of laundry up the stairs she de veloped heaviness to the left side of her chest that she felt radiating into her left upper arm. She states that it was very brief, lasting a few seconds, and it felt like a stinging sensation. The symptoms self-resolved, and she states she has had no further episodes of this pain. She does report that she felt she was having difficulty breathing at that time, but does endorse that she was feel ing very anxious about her symptoms and panicking. She does report that she had a recent change to her blood pressure medications, recently had lisinopril increased from 10 mg twice daily to 20 mg twice daily, she is awaiting a refill from her PCP. Currently, she has no complaints of fevers, chills, dizziness, lightheadedness, headache, chest pain, palpitations, shortness of breath, difficulty breathing, nausea, vomiting, dysuria, generalized weakness, numbness and tingling of the extremities. Related Data Home Medications Medication Instructions Recorded Confirmed pen needle, diabetic 31 gauge x #1,200 ea 08/06/20 09/02/2111/11 (BD Ultra-Fine Short Pen Needle) lancets 28 gauge (FreeStyle 06/13/21 09/02/21 Lancets) Previous Rx's Medication Instructions Recorded nicotine 14 mg/24 hr daily 1 patch transdermal DAILY #7 ea 12/17/20 transdermal patch fluticasone propionate 50 1 spray intranasal DAILY #9.9 mL 06/13/21 mcg/actuation nasal spray,suspension (Flonase Allergy Relief) metformin 1,000 mg tablet 1,000 mg PO BID #180 tabs 08/28/21 sitagliptin 100 mg tablet (Januvia) 100 mg PO DAILY #90 tabs 08/28/21 insulin glargine 100 unit/mL (3 50 unit (0.5 mL) subcut BEDTIME 10/08/21 mL) subcutaneous pen (Lantus #15 mL Solostar U-100 Insulin) insulin lispro 200 unit/mL (3 mL) 15 unit (0.075 mL) subcut TID #6 mL 12/06/21 subcutaneous pen (Humalog KwikPen U-200 Insulin) lisinopril 10 mg tablet 10 mg PO BID #180 tabs 12/06/21 flash glucose sensor (FreeStyle #2 ea 12/19/21 Nati 2 Sensor) flash glucose scanning reader #1 ea 12/23/21 (FreeStyle Nati 2 Humbird) gabapentin 600 mg tablet 600 mg PO TID #90 tabs 12/23/21 Allergies Allergy/AdvReac Type Severity Reaction Status Date / Time Sulfa (Sulfonamide Allergy Unknown RASH Verified 12/19/21 15:22 Antibiotics) [SULFA (SULFONAMIDE ANTIBIOTICS)] sulfamethoxazole Allergy Unknown rash Verified 12/19/21 15:22 morphine [MORPHINE] AdvReac Unknown VOMITING Verified 12/19/21 15:22 Review of Systems Review of Systems: Constitutional: No weight loss. No fever. No chills. No weakness. No fatigue. Eye: No swelling. No redness. ENT: No sore throat. No rhinorrhea. No nasal congestion. No sore throat. No difficulty swallowing. Skin: No rash. No itching. Cardiovascular: No chest pain. No chest pressure. No palpitations. No pedal gemma a. Respiratory: No shortness of breath. No cough. No sputum production. Gastrointestinal: No anorexia. No nausea. No vomiting. No diarrhea. No abdominal pain. No blood in stool. Genitourinary: No burning micturition. No urinary frequency. No incontinence. Neurologic: No headache. No dizziness. No pre-syncope/ syncope. No unilateral weakness. No numbness. No tingling. Musculoskeletal: No muscle pain. No back pain. No joint pain. No stiffness. Hematologic: No bleeding. No bruising. Lymphatics: No enlarged lymph nodes. Psychiatric:No depression. Positive anxiety. Endocrine: No polyuria. No polydipsia. Yes all other systems are reviewed and are negative [facility] Past Medical History Attestation statement: The following information was validated with the patient. Source: old records reviewed Medical History Arthritis Diabetes mellitus, insulin dependent (IDDM), controlled Essential (primary) hypertension Hx of ectopic Hx of fall Legal blindness due to diabetes mellitus Open wound of left foot Peripheral neuropathy Peripheral vascular disease Tobacco use disorder Toe osteomyelitis, right Type 2 diabetes mellitus with foot ulcer Surgical History History of Hx laparoscopic cholecystectomy Hx of appendectomy Hx of colonoscopy Hx of left breast biopsy Hx of left cataract extraction Hx of non-cataract eye surgery Hx of ovarian cystectomy Hx of tubal ligation Family History Family History Mother Diabetes Afib Father No problems noted. Sister Mental health disorder Social History Social History Housing: Apartment Alcohol intake: never Patient Tobacco Use Status: Current someday Tobacco user Tobacco use type: Cigarette Cigarettes Per Day: 2 (weekly) Years Smoked: 25 e-Cigarette/Vaping Use: Never Used Advance Directives: No service: No Current occupational status: employed Cognitive needs: No Hearing needs: No Vision needs: Yes (Glasses) Physical Exam Vital Signs: Vital Signs: Last Vital Signs Temp 98.9 F 01/03/22 20:32 Pulse 86 01/03/22 23:38 Resp 16 01/03/22 23:38 BP 140/72 H 01/03/22 23:38 Pulse Ox 98 01/03/22 23:38 O2 Del Method 01/03/22 23:38 BMI result Body Mass Index 29.2 Vital signs have been reviewed as normal and appeared to be correct. Hype rtensive? Heart rate normal.? Respiration rate normal. Temperature normal.? Oxygen saturation normal. Appearance: Alert.?Oriented to person, place and time. No acute distress.?Normal affect. Eyes: Pupils equal, round and reactive to light.? ENT: Pharynx normal.?? Neck: Normal inspection.? Neck supple.?? CVS: Heart sounds normal. Normal heart rate and rhythm.? Pulses normal.?? Respiratory: No respiratory distress.? Lung sounds clear to auscultation bilaterally?? Abdomen: Soft and non-tender. Normoactive bowel sounds. No pulsatile mass.?? Skin: Skin warm and dry.? Normal skin color.? Extremities: No lower extremity edema.? No calf ttp? Neuro: Moves all extremities spontaneously. Sensation intact bilaterally. CN II- XII intact. No focal neuro deficits. Ambulates with normal steady gait. Course Course Course Narrative: Patient is a 61-year-old female with a past medical history of hypertension, peripheral vascular disease, type 2 diabetes with insulin dependence and neuropathy presenting to the emergency department for evaluation of chest pain. Very brief and episodic in nature lasting only a few seconds and self resolving. Currently asymptomatic. Will obtain CBC to evaluate for leukocytosis/ anemia, CMP and lipase to evaluate for abnormal electrolytes /abnormal renal function/ abnormal hepatic/biliary function, EKG and troponin to evaluate for ischemia/ACS. Reevaluation(s) Reevaluation #1: CBC reveals a normocytic anemia, mild hyperkalemia 5.2, consistent with prior labs. Troponin 10.7, EKG normal sinus rhythm with no acute ischemic changes, will obtain repeat delta troponin. Time: 23:59 Reevaluation #2: Patient requesting to leave at this time. Discussed with patient again the im portance of having repeat troponin obtained at this time, to exclude ACS. Patient declines to stay for testing would like to go home at this point. Advised that ACS may be life-threatening. Discussed worrisome signs and symptoms that she should return back to the emergency department for. All qu estions were answered, patient continues to request to leave at this time Time: 00:04 [facility] - Chest Pain Medical Records Data Attestation: I reviewed the patient's medical records. Lab Data Attestation: I reviewed the patient's lab results. Result diagrams: 01/03/22 20:59 01/03/22 20:59 Labs: Lab Results 01/03/22 01/03/22 01/03/22 Range/Units 20:59 20:59 20:59 WBC 9.0 (4.8-10.8) X10*3/uL RBC 4.07 L (4.20-5.50) X10*6/uL Hgb 11.9 L (12.0-16.0) g/dl Hct 35.8 L (37.0-47.0) % MCV 88.0 (80.0-98.0) fL MCH 29.2 (27.0-33.0) pg MCHC 33.2 (31.0-35.0) g/dl RDW 14.0 (11.0-16.0) % Plt Count 228 (160-400) X10*3/uL MPV 9.1 L (9.4-12.3) fL Immature Gran % (Auto) 0.2 (0.0-0.4) % Neut % (Auto) 53.9 (45-73) % Lymph % (Auto) 36.0 (20-40) % [place]ug[place] % (Auto) 6.8 (2-11) % Eos % (Auto) 2.8 (0-4) % Baso % (Auto) 0.3 (0-2) % Lymph # (Auto) 3.2 (1.2-4.9) X10*3/uL [place] # (Auto) 0.6 (0.1-1.2) X10*3/uL Eos # (Auto) 0.3 (0.0-0.4) X10*3/uL Baso # (Auto) 0.0 (0.0-0.2) X10*3/uL Abs Immat Gran (auto) 0.02 (0.00-0.03) X10*3/uL Absolute Neuts (auto) 4.8 (2.0-8.3) x10*3/uL Absolute Nucleated RBC 0.000 (0.0-0.012) X10*3/uL Nucleated RBC % (auto) 0.0 (0.0-0.2) /100WBC Sodium 137 (135-145) mmol/L Potassium 5.2 H (3.3-5.1) mmol/L Chloride 104 (96-108) mmol/L Carbon Dioxide 25 (22-29) mmol/L Anion Gap 13 (12-20) BUN 34 H (9-16) mg/dL Creatinine 1.38 (0.5-1.4) mg/dL Estim Creat Clear Calc 44.1 Estimated GFR 39 Random Glucose 83 (60-115) mg/dL Calcium 9.7 (8.4-10.2) mg/dL Total Bilirubin 0.3 (0.0-1.0) mg/dL AST 24 D (5-31) U/L ALT 22 (0-31) U/L Alkaline Phosphatase 84 (39-117) U/L Troponin I High Sens 10.7 (<3.5-17.0) ng/L Total Protein 7.3 (6.5-8.0) g/dL Albumin 4.3 (3.5-5.0) g/dL ECG Data ECG #1: Attestation: I personally reviewed and interpreted this ECG as follows: ECG interpretation date: 01/03/22 Prior ECG tracings: available for review Interpretation: Rate: 94 Rhythm:? Normal sinus rhythm Normal P waves.? Normal CAMI.?? Normal QRS complex.?? ST T wave :??No ST elevation, no ST depression, no T-wave inversion qTC: 422 prior studies:? November 2010 The study has been interpreted contemporaneously by me. Discharge Plan Discharge Clinical Impression: Chest pain, Left against medical advice Patient Disposition: Left Against Medical Advice Instructions: Chest Pain (ED), Against Medical Advice (ED) Additional Instructions: As we discussed, it was recommended that you have repeat blood work obtained to be certain that your symptoms were not related to a heart attack, however you declined to have this obtained. You requested to leave against medical advice. Please return to the emergency department any new or worsening symptoms or concerns, follow-up with your primary care doctor within 3 days. Prescriptions: No Action Lantus Solostar U-100 Insulin 100 unit/mL (3 mL) insulin pen 50 unit subcut BEDTIME Qty: 15 1RF Humalog KwikPen Insulin 200 unit/mL (3 mL) insulin pen 15 unit subcut TID Qty: 6 0RF lisinopril 10 mg tablet 10 mg PO BID Qty: 180 0RF gabapentin 600 mg tablet 600 mg PO TID Qty: 90 0RF nicotine 14 mg/24 hr patch 24 hour 1 patch transdermal DAILY Qty: 7 0RF (DME) lancets [FreeStyle Lancets] 28 gauge misc See Rx Instructions .Route Rx Instructions: test blood sugar once a day fluticasone propionate [Flonase Allergy Relief] 50 mcg/actuation spray,judge spension 1 spray intranasal DAILY Qty: 9.9 1RF Rx Instructions: administer into each nostril (DME) pen needle, diabetic [BD Ultra-Fine Short Pen Needle] 31 gauge x 5/16 needle See Rx Instructions .ROUTE .MEDSUPPLY Qty: 1200 Rx Instructions: once a daily Januvia 100 mg tablet 100 mg PO DAILY Qty: 90 1RF metformin 1,000 mg tablet 1,000 mg PO BID Qty: 180 1RF (DME) FreeStyle Nati 2 Sensor Kit See Rx Instructions .Route Qty: 2 11RF Rx Instructions: As directed every 2 weeks (DME) FreeStyle Nati 2 Humbird Misc See Rx Instructions .Route Qty: 1 0RF Rx Instructions: As directed Interventions: ED Discharge Assessment Last Done: 01/04/22 00:16 Discharge Date/Time: 01/04/22 00:19
--- NOTE | 2022-01-04 00:05 | PC.NURSE ---
Addendum entered by Arpita Campbell RN 01/04/22 00:18: 00:18 Patient left AMA, paperwork given and education provided. VSS. Original Note: Patient refusing lab draw, education provided and patient asking to be discharged. Provider Kera notified.
== END 2022-01-04 00:19 | disposition left against medical advice (07) ==
PROVIDERS: Emergency Provider Internal Medicine; PCP Internal Medicine
DX: R07.9 Chest pain, unspecified (principal); E11.9 Type 2 diabetes mellitus without complications; I10 Essential (primary) hypertension; F17.200 Nicotine dependence, unspecified, uncomplicated; Z79.4 Long term (current) use of insulin; Z79.899 Other long term (current) drug therapy
CPT/HCPCS: 36415; 80053; 84484; 85025; 93005; 99283; 99284

== ENCOUNTER 2022-08-11 08:20 | Outpatient (REF) | payer MEDICARE, MEDICAID, SELFPAY ==
[2022-08-14 20:28] LABS: HPV 16 RNA NOT DETECTED (NOT DETECTED); HPV mRNA E6/E7 rflx Detected (Not Detected)
== END 2022-08-11 08:21 | disposition home or self-care (01) ==
LOC: HO.LNP 08:20
PROVIDERS: PCP Internal Medicine; Visit Provider Advanced Practice Midwife
DX: Z01.419 Encounter for gynecological examination (general) (routine) without abnormal findings (principal); Z11.51 Encounter for screening for human papillomavirus (HPV); R35.0 Frequency of micturition; A63.0 Anogenital (venereal) warts
CPT/HCPCS: 81003; 87624; 87625; 88142; 99212

== ENCOUNTER 2022-08-25 13:06 | Outpatient (REF) | payer MEDICARE, MEDICAID, SELFPAY ==
--- NOTE | ~2022-08-25 | MM_ITS ---
EXAMINATION: MM SCREENING DIGITAL BREAST TOMOSYNTHESIS, BILATERAL CLINICAL INFORMATION: Screening. Asymptomatic. The lifetime risk of breast cancer based on the Tyrer-Cuzick Model is 7.0%. COMPARISON: Mammography: 01/18/2021 and studies dating back to 07/29/2011. TECHNIQUE: Digital breast tomosynthesis is performed in both the craniocaudal and mediolateral oblique views along with computer-aided detection (CAD). Synthesized 2D images are generated from the tomosynthesis. FINDINGS: There are scattered areas of fibroglandular density (ACR BI-RADS breast composition Category b). There is a stable parenchymal pattern of the left breast. About the anterior superior lateral aspect of the right breast there is an ill-defined density not definitely seen previously for which spot compression film is recommended. MM/MM tomosynthesis screening BI IMPRESSION: Right breast density for further evaluation as described. ASSESSMENT: BI-RADS 0: Incomplete - Need Additional Imaging Evaluation RECOMMENDATION: 1. Additional views of the right breast. 2. Targeted ultrasound if warranted after review of the additional views. 3. Radiology department staff will contact the patient for additional imaging.
== END 2022-08-25 13:07 | disposition home or self-care (01) ==
LOC: HO.MAMMO 13:06
PROVIDERS: PCP Internal Medicine; Visit Provider Advanced Practice Midwife
DX: Z12.31 Encounter for screening mammogram for malignant neoplasm of breast (principal)
CPT/HCPCS: 77063; 77067

== ENCOUNTER 2022-09-05 10:57 | Outpatient (REF) | payer MEDICARE, MEDICAID, SELFPAY | END 2022-09-05 10:58 | disposition home or self-care (01) | LOC: HO.LAB 10:57 | PROVIDERS: PCP Internal Medicine; Visit Provider Urology | DX: R33.9 Retention of urine, unspecified (principal) | CPT/HCPCS: 51798; 87086; 99202 ==

== ENCOUNTER 2022-09-15 10:53 | Outpatient (REF) | payer MEDICARE, MEDICAID, SELFPAY ==
--- NOTE | ~2022-09-15 | MM_ITS ---
EXAMINATION: MM DIAGNOSTIC DIGITAL BREAST TOMOSYNTHESIS, RIGHT CLINICAL INFORMATION: Recall from screening for question of ill-defined density anterior upper outer right breast. COMPARISON: Mammography: 08/25/2022, 01/18/2021, 10/31/2019 TECHNIQUE: Digital breast tomosynthesis is performed. 2D images are generated from the tomosynthesis. The following views are obtained: Spot CC, spot MLO. FINDINGS: There are scattered areas of fibroglandular density (ACR BI-RADS breast composition Category b). The additional views show parenchymal pattern similar to prior studies with no developing density or interval mass or architectural abnormality in the area of recent screening concern. Results are discussed with the patient at time of visit. MM/MM tomosynthesis added views R IMPRESSION: -No mammographic evidence of malignancy. -Additional views show no significant changes from prior studies. ASSESSMENT: BI-RADS 2: Benign RECOMMENDATION: Routine annual mammography screening. This patient's information was entered into a reminder system with a target due date for their next mammogram.
== END 2022-09-15 10:54 | disposition home or self-care (01) ==
LOC: HO.MAMMO 10:53
PROVIDERS: PCP Internal Medicine; Visit Provider Internal Medicine
DX: R92.2 Inconclusive mammogram (principal)
CPT/HCPCS: 77061; 77065

== ENCOUNTER 2022-10-15 11:33 | Outpatient (REF) | payer MEDICARE, MEDICAID, SELFPAY | END 2022-10-15 11:34 | disposition home or self-care (01) | LOC: HO.LNP 11:33 | PROVIDERS: PCP Internal Medicine; Visit Provider Obstetrics & Gynecology | DX: N90.89 Other specified noninflammatory disorders of vulva and perineum (principal); R87.610 Atypical squamous cells of undetermined significance on cytologic smear of cervix (ASC-US) | CPT/HCPCS: 56605; 57454; 88305; 88312; 99212 ==

== ENCOUNTER → 2022-10-28 11:09 | Outpatient (BNVA) | payer MEDICARE, MEDICAID, SELFPAY | PROVIDERS: PCP Internal Medicine; Visit Provider Obstetrics & Gynecology | DX: R87.610 Atypical squamous cells of undetermined significance on cytologic smear of cervix (ASC-US) (principal); R87.810 Cervical high risk human papillomavirus (HPV) DNA test positive; N90.89 Other specified noninflammatory disorders of vulva and perineum | CPT/HCPCS: 99212 ==

== ENCOUNTER 2023-03-25 10:37 | Outpatient (AMB) | payer MEDICARE, MEDICAID, SELFPAY ==
--- NOTE | 2023-03-25 10:40 | MHC.OFFVIS ---
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: No Information Interpreted: non-clinical & clinical Machine Trimmer: Machine Trimmer Present (Marilin Benavidez AMIRA) Accompanied by: Self / Same As Patient Allergies Sulfa (Sulfonamide Antibiotics) [SULFA (SULFONAMIDE ANTIBIOTICS)] Allergy (Unknown, Verified 03/25/23 10:45) RASH sulfamethoxazole Allergy (Unknown, Verified 03/25/23 10:45) rash morphine [MORPHINE] Adverse Reaction (Unknown, Verified 03/25/23 10:45) VOMITING Post menopausal: Yes HPI HPI Comments History of Present Illness Details Presenting for follow-up after Aldara cream treatment for left vulvar condyloma acuminata/SHAREE 1. 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, right Legal blindness due to diabetes mellitus Tobacco use disorder Essential (primary) hypertension Peripheral vascular disease Type 2 diabetes mellitus with foot ulcer Open wound of left foot Hx of fall Hx of ectopic Arthritis Diabetes mellitus, insulin dependent (IDDM), controlled Peripheral neuropathy Surgical History Hx of left cataract extraction Hx of left breast biopsy Hx of colonoscopy Hx of tubal ligation History of Hx of ovarian cystectomy Hx of non-cataract eye surgery Hx of appendectomy Hx laparoscopic cholecystectomy Family History Mother Diabetes Afib Father No problems noted. Sister Mental health disorder Maternal Aunt Colon cancer Social History Housing: Apartment Alcohol intake: never Patient Tobacco Use Status: Current someday Tobacco user Tobacco use type: Cigarette Cigarettes Per Day: 10 (weekly) Years Smoked: 25 e-Cigarette/Vaping Use: Never Used service: No Current occupational status: employed Cognitive needs: No Hearing needs: No Vision needs: Yes (Glasses) Review of Systems Const All systems reviewed & are unremarkable except as noted in HPI and below Physical Exam General: Yes no CVA tenderness External Female Exam: normal appearance of the urethra and other (Left labia majora 3 x 3 cm condyloma) Speculum Exam - Vagina: normal appearance of the vagina, normal palpation, no lesions and no masses Speculum Exam - Cervix: normal appearance of the cervix, normal palpation, no lesions, no masses and nontender Bimanual exam- vagina & uterus: normal bimanual exam, normal palpation, uterine size normal, normal palpation, uterine shape normal, No Cervical tenderness present and non-tender Bimanual Exam- Adnexa, other: normal adnexae Back/Spine/Pelvis Back: no CVA tenderness Assessment & Plan Assessment & Plan (1) Vulvar lesion: Comment: Left labia minora 3 x 3 cm Condyloma acuminata/SHAREE 1 Code(s): N90.89 - Other specified noninflammatory disorders of vulva and perineum Plan: Discussed with the patient the finding on pelvic exam showing no change in the size of the condyloma acuminata after Aldara cream treatment; the options of treat including TCA application, excision, cryotherapy or laser were discussed with the patient; all pros and cons risks benefits of each were discussed with the patient, the patient decided to proceed with laser therapy. Explained to the patient that laser machine is not available at [facility], will refer to [facility] . All questions answered, the patient verbalized understanding. Instructed the patient to call our office back in case a referral appointment is not scheduled, missed or canceled so that we will assist on rescheduling another appointment, the patient verbalized understanding agreed with the plan. Coding Level of Care Code Est Pt Level 3 (05166) Diagnoses Vulvar lesion N90.89
[2023-03-25 10:44] VITALS: BP 116/60; BMI 28.2
== END 2023-03-25 11:06 | disposition home or self-care (01) ==
PROVIDERS: PCP Internal Medicine; Visit Provider Obstetrics & Gynecology
DX: N90.89 Other specified noninflammatory disorders of vulva and perineum (principal)
CPT/HCPCS: 99213

== ENCOUNTER → 2023-03-25 10:37 | Outpatient (BNVA) | payer MEDICARE, MEDICAID, SELFPAY | PROVIDERS: PCP Internal Medicine; Visit Provider Obstetrics & Gynecology | DX: N90.89 Other specified noninflammatory disorders of vulva and perineum (principal) | CPT/HCPCS: 99212 ==

== ENCOUNTER 2023-05-18 10:26 | Outpatient (REF) | payer MEDICARE, MEDICAID, SELFPAY ==
[2023-05-18 10:38] VITALS: BMI 28.6
[2023-05-18 10:41] VITALS: BP 113/78; PULSE 82; RESP 16; TEMP 35.9; O2SAT 98
== END 2023-05-18 10:27 | disposition home or self-care (01) ==
LOC: HO.MS 10:26
PROVIDERS: PCP Internal Medicine; Visit Provider Ophthalmology
PROC: (CPT 66821; principal; 2023-05-18 13:10)
DX: H26.492 Other secondary cataract, left eye (principal)
CPT/HCPCS: 66821

== ENCOUNTER 2023-10-01 09:06 | Outpatient (AMB) | payer MEDICARE, MEDICAID, SELFPAY ==
--- NOTE | 2023-10-01 09:27 | A.OFFPC_ITS ---
Vital Signs 10/01/23 09:29 Height 5 ft 5 in Weight 170 lb 8 oz BMI 28.4 BP 130/70 Blood Pressure Location Lt brachial Position Sitting Pulse 82 Pulse Source Pulse Oximeter Pulse Oximetry (%) 96 Oxygen Delivery Method Room Air Intake Visit Reasons: 3mth f/u Intake Note: Patient is here to follow up on DM, HTN, Osteoarthritis. 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 Required: No Guitar Maker Hand: Not Required per policy Accompanied by: Self / Same As Patient Allergies Sulfa (Sulfonamide Antibiotics) [SULFA (SULFONAMIDE ANTIBIOTICS)] Allergy (Unknown, Verified 10/11/23 19:03) RASH sulfamethoxazole Allergy (Unknown, Verified 10/11/23 19:03) rash morphine [MORPHINE] Adverse Reaction (Unknown, Verified 10/11/23 19:03) VOMITING Medication List - Last Reconciled 10/11/23 by Tommie Chavis MD flash glucose scanning reader (FreeStyle Nati 2 [place]) As directed flash glucose sensor (FreeStyle Nati 2 Sensor kit) As directed every 2 weeks fluticasone propionate 50 mcg/actuation (Flonase Allergy Relief) 1 spray intranasal DAILY gabapentin 600 mg PO TID insulin glargine (Basaglar KwikPen U-100 Insulin) 50 units (0.5 mL) subcut DAILY insulin lispro (Humalog KwikPen U-200 Insulin) 20 units (0.1 mL) subcut TID lisinopril 10 mg PO BID metformin 1,000 mg PO BID nicotine 1 patch transdermal DAILY pen needle, diabetic (BD Ultra-Fine Short Pen Needle) once a daily sitagliptin phosphate (Januvia) 100 mg PO DAILY Tobacco use date assessed: 10/01/23 Dental Screening Dental Screen Date: 10/01/23 Did you have a dental visit in the last 12 months?: Yes Did you have a dental problem in the last 6 months where you did not have access to dental care?: No Was dental information given to patient?: Patient has dentist (Dentures) HPI 3mth f/u HPI Details 63-year-old female presents to the offic e to discuss her chronic medical conditions. Patient has been compliant with her medications. Continues to smoke. Requesting a refill on few of her medications. Not checking her blood sugars frequently. 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 Sister Mental health disorder Maternal Aunt Colon cancer Social History Housing: Apartment Alcohol intake: current Alcohol intake frequency: holidays/special occasions only Patient Tobacco Use Status: Current everyday Tobacco user Tobacco use type: Cigarette Cigarette Packs Per Day: 0.5 Cigarettes Per Day: 10 Years Smoked: 25 e-Cigarette/Vaping Use: Never Used Second Hand Smoke Exposure: Yes service: No Current occupational status: employed Cognitive needs: No Hearing needs: No Vision needs: Yes (Glasses) Questionnaire PHQ-9 Over the last 2 weeks, how often have you been bothered by any of the following problems? 1. Little interest or pleasure in doing things: not at all 2. Feeling down, depressed, or hopeless: not at all 3. Trouble falling or staying asleep, or sleeping too much: not at all 4. Feeling tired or having little energy: not at all 5. Poor appetite or overeating: not at all 6. Feeling bad about yourself - or that you are a failure or have let yourself or your family down: not at all 7. Trouble concentrating on things, such as reading the newspaper or watching television: not at all 8. Moving or speaking so slowly that other people could have noticed. Or the opposite - being so fidgety or restless that you have been moving around a lot more than usual: not at all 9. Thoughts that you would be better off or of hurting yourself in some way: not at all Total score: 0 Depression Screening Interpretation: Negative Depression Screening Done: Yes Source: Developed by Jazmyn Jefferson Kurt Kroenke and colleagues, with an educational roshni from [employer]. Thrive Questionnaire Date Thrive assessed: 10/01/23 I am a: Patient What is your living situation today?: I have a steady place to live Within the past 12 months, did the food you bought not last and you didn't have the money to get more?: Never true Within the past 12 months, did you worry whether your food would run out before you got money to buy more?: Never true Do you have trouble paying for medicines?: No Do you have trouble getting transportation to medical appointments?: No Do you have trouble paying your heating and electricity bill?: No Do you have trouble taking care of your child, family member or friend?: No Do you have trouble with day-to-day activities such as bathing, preparing meals, shopping, managing finances, etc.?: No Are you currently unemployed and looking for a job?: No Are you interested in more education?: No Currently or been in a relationship where the following occur: no concerns reported THRIVE Score: 0 AUDIT C Alcohol Use Questionnaire (AUDIT-C) 1. How often do you have a drink containing alcohol?: Monthly or less Total Score: 1 MONIKA-7 AMB Questionnaire MONIKA-7 Date MONIKA - 7 assessed: 10/01/23 Feeling nervous, anxious, or on edge: 2 = More than half the days Not being able to stop or control worryin = Not at all Worrying too much about different things: 0 = Not at all Trouble relaxin = Several days Being so restless that it is hard to sit still: 1 = Several days Becoming easily annoyed or irritable: 1 = Several days Feeling afraid as if something awful might happen: 1 = Several days Total MONIKA-7 score (0-4 normal; 5-9 mild; 10-14 moderate; 15-21 severe): 6 Source: Developed by Jazmyn Jefferson Kurt Kroenke and colleagues, with an educational roshni from [employer]. Physical exam (Primary Care) Vital Signs: Last Vital Signs Pulse 82 10/01/23 09:29 BP 130/70 10/01/23 09:29 Pulse Ox 96 10/01/23 09:29 Oxygen Delivery Method Room Air 10/01/23 09:29 Care Plan Goal for BP management: Blood pressure is in range BMI result Body Mass Index 28.4 Tobacco/Smoking Status: Tobacco use Status Tobacco use date assessed 10/01/23 10/01/23 09:38 Patient Tobacco Use Status Current everyday Tobacco 10/01/23 09:38 Tobacco use type Cigarette 10/01/23 09:38 e-Cigarette/Vaping Use Never Used 10/01/23 09:38 PHQ-9: PHQ-9 Score PHQ-9: Total score 0 10/01/23 09:38 Depression Screening Interpretation: Negative Thrive Assessment: Date of Thrive Assessment Date Thrive assessed 10/01/23 10/01/23 09:38 Currently or been in a relationship where the following occur: no concerns reported Const General: cooperative and healthy appearing Nutritional Appearance: well nourished Orientation/consciousness: patient oriented x3 Limitations: no limitations HENMT Head: Yes normal to inspection Eyes General: appearance normal, both eyes and all related structures Neck Neck: Yes normal visual inspection Chest Chest palpation & inspection: normal palpation of entire chest wall Resp Effort & Inspection: normal respiratory effort Neuro General: patient oriented x3 Results AMB Hemoglobin A1c AMB Hemoglobin A1c 7.8 % Last Edit by AMIRA Zarco on 10/01/23 09:39 Results Reviewed Results Reviewed: Laboratory Last Values Hgb A1c (Clinic) 7.8 % (4.0-6.0) H 10/01/23 09:25 Assessment and Plan Assessment & Plan (1) Diabetes mellitus, insulin dependent (IDDM), controlled: Plan: A1c is 7.8. Continue the Lantus insulin prescription. Blood work has been ordered Orders: Orders AMB Hemoglobin A1c 10/01/23 E11.9 - Type 2 diabetes mellitus without complications Medications: Refilled gabapentin 600 mg PO TID 90 tabs 0RF sitagliptin phosphate (Januvia) 100 mg PO DAILY 90 tabs 1RF fluticasone propionate 50 mcg/actuation (Flonase Allergy Relief) administer into each nostril 1 spray intranasal DAILY 9.9 mL 1RF Coding Level of Care Code Est Pt Level 4 (56005) Diagnoses Diabetes mellitus, insulin dependent (IDDM), controlled
[2023-10-01 09:29] VITALS: BP 130/70; PULSE 82; O2SAT 96; BMI 28.4
== END 2023-10-01 10:20 | disposition home or self-care (01) ==
PROVIDERS: PCP Internal Medicine; Visit Provider Internal Medicine
DX: E11.9 Type 2 diabetes mellitus without complications (principal)
CPT/HCPCS: 83036; 99214

== ENCOUNTER 2023-10-16 07:36 | Outpatient (REF) | payer MEDICARE, MEDICAID, SELFPAY ==
[2023-10-16 10:34] LABS: Appearance Urine Cloudy; Color Urine Yellow; Glucose Urine UA Negative (Negative); Leukocyte Esterase Urine Small (1+) (Negative); Nitrite Urine Negative (Negative); PH 5.5 (5.0-9.0); UMIC TRIGGER UA YES; Urine Blood Negative (Negative); Urine Ketones Negative (Negative); Urine Protein Negative (Neg-Trace)
[2023-10-16 10:40] LABS: Bacteria Urine 4+ (None Seen); Hyaline Casts Urine 0-2 /LPF (0-2); RBC Urine 0-2 /HPF (0-2); Squamous Epithelial Cell Urine >20 /HPF (0-2); WBC Urine 21-50 /HPF (0-5)
[2023-10-16 10:48] LABS: Hematocrit 37.7 % (37.0-47.0); Hemoglobin 12.2 g/dl (12.0-16.0); Mean Corpuscular HGB Conc 32.4 g/dl (31.0-35.0); Mean Corpuscular Hemoglobin 29.5 pg (27.0-33.0); Mean Corpuscular Volume 91.3 fL (80.0-98.0); Mean Platelet Volume 9.7 fL (9.4-12.3); Platelet Count 229 X10*3/uL (160-400); Red Blood Count 4.13 X10*6/uL (4.20-5.50); Red Cell Distribution Width 13.6 % (11.0-16.0)
[2023-10-16 11:33] LABS: Creatinine Urine 166.13 mg/dL
[2023-10-16 11:50] LABS: Alanine Aminotransferase 14 U/L (0-31); Albumin Level 3.9 g/dL (3.5-5.0); Alkaline Phosphatase 93 U/L (39-117); Anion Gap 13 (12-20); Aspartate Amino Transferase 21 U/L (5-31); Bilirubin Direct < 0.2 mg/dL (0.0-0.5); Bilirubin Total 0.2 mg/dL (0.0-1.0); Blood Urea Nitrogen 19 mg/dL (9-16); Calcium 9.2 mg/dL (8.4-10.2); Carbon Dioxide 26 mmol/L (22-29); Chloride 104 mmol/L (96-108); Cholesterol 213 mg/dL (<200); Estimated Glomerular Filt Rate > 60; Glucose Random 115 mg/dL (60-115); HDL Cholesterol 47 mg/dL (>40); Potassium 4.7 mmol/L (3.3-5.1); Sodium 138 mmol/L (135-145); Total Protein 6.9 g/dL (6.5-8.0); Triglycerides 488 mg/dL (<150)
[2023-10-16 11:55] LABS: Thyroid Stimulating Hormone 2.39 uIU/mL (0.32-4.0)
== END 2023-10-16 07:37 | disposition home or self-care (01) ==
LOC: HO.HMGCLDS 07:36
PROVIDERS: PCP Internal Medicine; Visit Provider Internal Medicine
DX: E13.319 Other specified diabetes mellitus with unspecified diabetic retinopathy without macular edema (principal); H35.049 Retinal micro-aneurysms, unspecified, unspecified eye
CPT/HCPCS: 36415; 80048; 80061; 80076; 81001; 82043; 82570; 84443; 85027

== ENCOUNTER 2024-01-06 09:07 | Outpatient (AMB) | payer MEDICARE, MEDICAID, SELFPAY ==
--- NOTE | 2024-01-06 09:19 | A.OFFPC_ITS ---
Vital Signs 01/06/24 09:21 Height 5 ft 5 in Weight 167 lb 6 oz BMI 27.8 BP 100/70 Blood Pressure Location Rt brachial Position Sitting Pulse 87 Pulse Source Pulse Oximeter Pulse Oximetry (%) 93 Oxygen Delivery Method Room Air Intake Visit Reasons: 3mth f/u Intake Note: Patient is here to follow up on DM, HTN, PVD. Database Report Writer Required: No Anthropology Department Chair: Not Required per policy Accompanied by: Self / Same As Patient Allergies Sulfa (Sulfonamide Antibiotics) [SULFA (SULFONAMIDE ANTIBIOTICS)] Allergy (Unknown, Verified 01/06/24 16:11) RASH sulfamethoxazole Allergy (Unknown, Verified 01/06/24 16:11) rash morphine [MORPHINE] Adverse Reaction (Unknown, Verified 01/06/24 16:11) VOMITING Medication List - Last Reconciled 01/06/24 by Tommie Chavis MD Basaglar KwikPen U-100 Insulin (insulin glargine) 50 units (0.5 mL) subcut DAILY NS flash glucose scanning reader (FreeStyle Nati 2 [place]) As directed flash glucose sensor (FreeStyle Nati 2 Sensor kit) As directed every 2 weeks fluticasone propionate 50 mcg/actuation (Flonase Allergy Relief) 1 spray intranasal DAILY gabapentin 600 mg PO TID insulin lispro (Humalog KwikPen U-200 Insulin) 20 units (0.1 mL) subcut TID lisinopril 10 mg PO BID metformin 1,000 mg PO BID nicotine 1 patch transdermal DAILY pen needle, diabetic (BD Ultra-Fine Short Pen Needle) once a daily sitagliptin phosphate (Januvia) 100 mg PO DAILY Tobacco use date assessed: 01/06/24 Fall risk assessment: No Falls in past year Last assessed Fall Risk: 01/06/24 Dental Screening Dental Screen Date: 10/01/23 HPI 3mth f/u HPI Details 63-year-old female presents to the offic e to discuss her chronic medical conditions. Patient is legally blind and is not able to drive. 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 Patient has not been taking her short-acting insulin for the past few months. She reports that her pharmacy has not been dispensing the medication due to insurance issues. Her blood sugars have started going up. Usually in the evening they are greater than 200. Has moved into a new home. Patient is started having allergy symptoms that include cough and wheezing. She believes that they could be mold in the house. Requesting a mammogram. 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 Sister Mental health disorder Maternal Aunt Colon cancer Social History Housing: Apartment Alcohol intake: current Alcohol intake frequency: holidays/special occasions only Patient Tobacco Use Status: Current everyday Tobacco user Tobacco use type: Cigarette Cigarette Packs Per Day: 0.5 Cigarettes Per Day: 10 Years Smoked: 25 e-Cigarette/Vaping Use: Never Used Second Hand Smoke Exposure: Yes service: No Current occupational status: employed Cognitive needs: No Hearing needs: No Vision needs: Yes (Glasses) Questionnaire Thrive Questionnaire Date Thrive assessed: 10/01/23 MONIKA-7 AMB Questionnaire MONIKA-7 Date MONIKA - 7 assessed: 10/01/23 Source: Developed by Drs. Sujit Poole, Jazmyn Minor, Rick Ross and colleagues, with an educational roshni from [employer]. Physical exam (Primary Care) Vital Signs: Last Vital Signs Pulse 87 01/06/24 09:21 BP 100/70 01/06/24 09:21 Pulse Ox 93 01/06/24 09:21 Oxygen Delivery Method Room Air 01/06/24 09:21 BMI result Body Mass Index 27.8 Tobacco/Smoking Status: Tobacco use Status Tobacco use date assessed 01/06/24 01/06/24 09:32 Patient Tobacco Use Status Current everyday Tobacco 01/06/24 09:32 Tobacco use type Cigarette 01/06/24 09:32 e-Cigarette/Vaping Use Never Used 01/06/24 09:32 Thrive Assessment: Date of Thrive Assessment Date Thrive assessed 10/01/23 01/06/24 09:32 Const General: cooperative and healthy appearing Nutritional Appearance: well nourished Orientation/consciousness: patient oriented x3 Limitations: no limitations HENMT Head: Yes normal to inspection Eyes General: appearance normal, both eyes and all related structures Neck Neck: Yes normal visual inspection Chest Chest palpation & inspection: normal palpation of entire chest wall Resp Effort & Inspection: normal respiratory effort Neuro General: patient oriented x3 Results AMB Hemoglobin A1c AMB Hemoglobin A1c 8.0 % Last Edit by AMIRA Zarco on 01/06/24 09:32 Results Reviewed Results Reviewed: Laboratory Last Values Hgb A1c (Clinic) 8.0 % (4.0-6.0) H 01/06/24 09:18 Assessment and Plan Assessment & Plan (1) 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 Condition is stable. (2) Amputation of right great toe: Code(s): S98.111A - Complete traumatic amputation of right great toe, initial encounter Plan: Condition is stable. The wound has completely healed. (3) Legal blindness due to diabetes mellitus: Code(s): E11.39 - Type 2 diabetes mellitus with other diabetic ophthalmic complication; H54.8 - Legal blindness, as defined in [place] Plan: A1c is 8.0. Patient has been encouraged to restart the short-acting insulin. I have instructed my nurse to call the pharmacy to determine the cause of why her short-acting insulin is not being filled. (4) Peripheral vascular disease: Code(s): I73.9 - Peripheral vascular disease, unspecified Plan: Continue to abstain from smoking. (5) Diabetes mellitus, insulin dependent (IDDM), controlled: (6) Essential (primary) hypertension: Code(s): I10 - Essential (primary) hypertension Plan: Blood pressure is in range. Continue medications at same dosage. (7) Cough: Code(s): R05.9 - Cough, unspecified Plan: Allergy and mold etiology should be ruled out. Patient is going to have her home checked for mold. 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
[2024-01-06 09:21] VITALS: BP 100/70; PULSE 87; O2SAT 93; BMI 27.8
== END 2024-01-06 10:14 | disposition home or self-care (01) ==
PROVIDERS: PCP Internal Medicine; Visit Provider Internal Medicine
DX: E11.39 Type 2 diabetes mellitus with other diabetic ophthalmic complication (principal); S98.111A Complete traumatic amputation of right great toe, initial encounter; I73.9 Peripheral vascular disease, unspecified; H35.043 Retinal micro-aneurysms, unspecified, bilateral; H54.8 Legal blindness, as defined in USA; I10 Essential (primary) hypertension; R05.9 Cough, unspecified
CPT/HCPCS: 83036; 99214; G2211

== ENCOUNTER 2024-05-04 14:55 | Outpatient (AMB) | payer MEDICARE, MEDICAID, SELFPAY ==
--- NOTE | 2024-05-04 15:03 | A.OFFPC_ITS ---
Vital Signs 05/04/24 15:05 Height 5 ft 5 in Weight 174 lb 2 oz BMI 29.0 BP 120/72 Blood Pressure Location Lt brachial Position Sitting Pulse 83 Pulse Source Pulse Oximeter Pulse Oximetry (%) 95 Oxygen Delivery Method Room Air Intake Visit Reasons: 3mth f/u - see comments Intake Note: Patient is here to follow up on DM, HTN, PVD. 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 Required: No Actionscript Developer: Not Required per policy Accompanied by: Self / Same As Patient Allergies Sulfa (Sulfonamide Antibiotics) [SULFA (SULFONAMIDE ANTIBIOTICS)] Allergy (Unknown, Verified 05/04/24 15:04) RASH sulfamethoxazole Allergy (Unknown, Verified 05/04/24 15:04) rash morphine [MORPHINE] Adverse Reaction (Unknown, Verified 05/04/24 15:04) VOMITING Tobacco use date assessed: 05/04/24 Fall risk assessment: No Falls in past year Last assessed Fall Risk: 05/04/24 Dental Screening Dental Screen Date: 10/01/23 HPI 3mth f/u - see comments HPI Details 63-year-old female presents to the offic e to discuss her diabetes. Patient has not been taking her short-acting insulin. She ran out of this medicine 3 weeks ago. Her blood sugars, especially after a meal is greater than 250. Continues to take all other medications and her long-acting insulin. 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, right Legal blindness due to diabetes mellitus Tobacco use disorder Essential (primary) hypertension Peripheral vascular disease Type 2 diabetes mellitus with foot ulcer Open wound of left foot Hx of fall Hx of ectopic Arthritis Diabetes mellitus, insulin dependent (IDDM), controlled Peripheral neuropathy Surgical History Hx of left cataract extraction Hx of left breast biopsy Hx of colonoscopy Hx of tubal ligation History of Hx of ovarian cystectomy Hx of non-cataract eye surgery Hx of appendectomy Hx laparoscopic cholecystectomy Family History Mother Diabetes Afib Father No problems noted. Sister Mental health disorder Maternal Aunt Colon cancer Social History Housing: Apartment Alcohol intake: current Alcohol intake frequency: holidays/special occasions only Patient Tobacco Use Status: Current everyday Tobacco user Tobacco use type: Cigarette Cigarette Packs Per Day: 0.5 Cigarettes Per Day: 10 Years Smoked: 25 e-Cigarette/Vaping Use: Never Used Second Hand Smoke Exposure: Yes service: No Current occupational status: employed Cognitive needs: No Hearing needs: No Vision needs: Yes (Glasses) Questionnaire Thrive Questionnaire Date Thrive assessed: 10/01/23 MONIKA-7 AMB Questionnaire MONIKA-7 Date MONIKA - 7 assessed: 10/01/23 Source: Developed by Drs. Sujit Poole, Jazmyn Minor, Rick Ross and colleagues, with an educational roshni from [email or web address]. Physical exam (Primary Care) Vital Signs: Last Vital Signs Pulse 83 05/04/24 15:05 BP 120/72 05/04/24 15:05 Pulse Ox 95 05/04/24 15:05 Oxygen Delivery Method Room Air 05/04/24 15:05 BMI result Body Mass Index 29.0 Tobacco/Smoking Status: Tobacco use Status Tobacco use date assessed 05/04/24 05/04/24 15:14 Patient Tobacco Use Status Current everyday Tobacco 05/04/24 15:14 Tobacco use type Cigarette 05/04/24 15:14 e-Cigarette/Vaping Use Never Used 05/04/24 15:14 Thrive Assessment: Date of Thrive Assessment Date Thrive assessed 10/01/23 05/04/24 15:14 Const General: cooperative and healthy appearing Nutritional Appearance: well nourished Orientation/consciousness: patient oriented x3 Limitations: no limitations HENMT Head: Yes normal to inspection Eyes General: appearance normal, both eyes and all related structures Neck Neck: Yes normal visual inspection Chest Chest palpation & inspection: normal palpation of entire chest wall Resp Effort & Inspection: normal respiratory effort Neuro General: patient oriented x3 Office Procedures Flu Questionnaire Does the patient have a severe egg allergy?: No Does the patient have severe life threatening allergies?: No Does the patient have a fever or illness today?: No Has the patient ever had Guillain-[place] Syndrome?: No Has the patient ever had any past reaction to a flu shot?: No Results AMB Hemoglobin A1c AMB Hemoglobin A1c 8.2 % Last Edit by AMIRA Zarco on 05/04/24 15:17 Immunizations Fluarix Triv [id number] (PF) 45 mcg (15 mcg x 3)/0.5 mL IM syringe Performing Provider: Tommie Chavis MD [facility] Administered by: Sandra Robles LPN on 05/04/24 15:33 Dose Route Admin Location Dispensed Lot Number Expiration Date NDC Marketing Support Specialist 0.5 mL IM Left Deltoid 0.5 mL [id number] 12/26/24 [id number] [employer] VIS Given Date VIS Provided VIS Publication Date 05/04/24 Single Vaccine 21 Eligibility Eligibility Date Funding Source Not [facility] Eligible 05/04/24 Private Results Reviewed Results Reviewed: Laboratory Last Values Hgb A1c (Clinic) 8.2 % (4.0-6.0) H 05/04/24 15:02 Coding Level of Care Code Est Pt Level 3 (07278) Complex EM visit Add On G2211 Diagnoses Diabetes mellitus, insulin dependent (IDDM), controlled Assessment & Plan Assessment & Plan (1) Diabetes mellitus, insulin dependent (IDDM), controlled: Category: Medical Plan: Short-acting insulin prescribed. Patient was instructed to start the medications at the prescribed dosage. She will return next week for a short office visit. Orders: Orders AMB Hemoglobin A1c Today Z13.9 - Encounter for screening, unspecified MM screening mammo BI Today Z12.31 - Encounter for screening mammogram for malignant neoplasm of breast Influenza [id number] Immunization Today Z23 - Encounter for immunization Medications: Refilled nicotine 1 patch transdermal DAILY 7 ea 0RF insulin aspart U-100 (Novolog FlexPen U-100 Insulin aspart) 20 units (0.2 mL) subcut TID 15 mL 1RF
[2024-05-04 15:05] VITALS: BP 120/72; PULSE 83; O2SAT 95; BMI 29.0
== END 2024-05-04 15:35 | disposition home or self-care (01) ==
LOC: HO.HMCH 14:56
PROVIDERS: PCP Internal Medicine; Visit Provider Internal Medicine
DX: Z23 Encounter for immunization (principal); Z13.9 Encounter for screening, unspecified; E11.9 Type 2 diabetes mellitus without complications

== ENCOUNTER → 2024-05-04 14:55 | Outpatient (BNVA) | payer MEDICARE, MEDICAID, SELFPAY | PROVIDERS: PCP Internal Medicine; Visit Provider Internal Medicine | DX: Z23 Encounter for immunization (principal); E11.9 Type 2 diabetes mellitus without complications; Z79.4 Long term (current) use of insulin | CPT/HCPCS: 83036; 90471; 90656; 99212 ==

== ENCOUNTER 2024-05-12 13:46 | Outpatient (AMB) | payer MEDICARE, MEDICAID, SELFPAY ==
--- NOTE | 2024-05-12 14:05 | MHC.PC.OV ---
Vital Signs 05/12/24 14:06 Height 5 ft 5 in Weight 174 lb BMI 29.0 BP 130/60 Blood Pressure Location Lt brachial Position Sitting Pulse 112 H Pulse Source Pulse Oximeter Pulse Oximetry (%) 93 Oxygen Delivery Method Room Air Intake Visit Reasons: Follow Up Med Review Intake Note: Patient is here to follow up on DM, blood sugar check. 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 Required: No Pickle Solution Maker: Not Required per policy Accompanied by: Self / Same As Patient Allergies Sulfa (Sulfonamide Antibiotics) [SULFA (SULFONAMIDE ANTIBIOTICS)] Allergy (Unknown, Verified 05/12/24 14:57) RASH sulfamethoxazole Allergy (Unknown, Verified 05/12/24 14:57) rash morphine [MORPHINE] Adverse Reaction (Unknown, Verified 05/12/24 14:57) VOMITING Medication List - Last Reconciled 05/12/24 by Tommie Chavis MD Basaglar KwikPen U-100 Insulin (insulin glargine) 50 units (0.5 mL) subcut DAILY NS flash glucose scanning reader ([employer] Nati 2 [place]) As directed flash glucose sensor ([employer]Style Nati 2 Sensor kit) As directed every 2 weeks fluticasone propionate 50 mcg/actuation (Flonase Allergy Relief) 1 spray intranasal DAILY gabapentin 600 mg PO TID insulin aspart U-100 (Novolog FlexPen U-100 Insulin aspart) 20 units (0.2 mL) subcut TID lisinopril 10 mg PO BID metformin 1,000 mg PO BID nicotine 1 patch transdermal DAILY pen needle, diabetic (BD Ultra-Fine Short Pen Needle) once a daily rosuvastatin 10 mg PO DAILY sitagliptin phosphate (Januvia) 100 mg PO DAILY Tobacco use date assessed: 05/12/24 Dental Screening Dental Screen Date: 10/01/23 HPI Follow Up Med Review HPI Details 63-year-old female presents for a follow-up visit. She has now started taking the short-acting insulin. Patient notices that her blood sugars are low, especially in the night. No fall or injury. 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, right Legal blindness due to diabetes mellitus Tobacco use disorder Essential (primary) hypertension Peripheral vascular disease Type 2 diabetes mellitus with foot ulcer Open wound of left foot Hx of fall Hx of ectopic Arthritis Diabetes mellitus, insulin dependent (IDDM), controlled Peripheral neuropathy Surgical History Hx of left cataract extraction Hx of left breast biopsy Hx of colonoscopy Hx of tubal ligation History of Hx of ovarian cystectomy Hx of non-cataract eye surgery Hx of appendectomy Hx laparoscopic cholecystectomy Family History Mother Diabetes Afib Father No problems noted. Sister Mental health disorder Maternal Aunt Colon cancer Social History Housing: Apartment Alcohol intake: current Alcohol intake frequency: holidays/special occasions only Patient Tobacco Use Status: Current everyday Tobacco user Tobacco use type: Cigarette Cigarette Packs Per Day: 0.5 Cigarettes Per Day: 10 Years Smoked: 25 Packs Per Year: 13 Packs per year/per ci.50 e-Cigarette/Vaping Use: Never Used Second Hand Smoke Exposure: Yes service: No Current occupational status: employed Cognitive needs: No Hearing needs: No Vision needs: Yes (Glasses) Questionnaire Thrive Questionnaire Date Thrive assessed: 10/01/23 MONIKA-7 AMB Questionnaire MONIKA-7 Date MONIKA - 7 assessed: 10/01/23 Source: Developed by Drs. Sujit Poole, Jazmyn Minor, Rick Ross and colleagues, with an educational roshni from [employer]. Physical exam (Primary Care) Vital Signs: Last Vital Signs Pulse 112 H 05/12/24 14:06 BP 130/60 05/12/24 14:06 Pulse Ox 93 05/12/24 14:06 Oxygen Delivery Method Room Air 05/12/24 14:06 BMI result Body Mass Index 29.0 Tobacco/Smoking Status: Tobacco use Status Tobacco use date assessed 05/12/24 05/12/24 14:10 Patient Tobacco Use Status Current everyday Tobacco 05/12/24 14:10 Tobacco use type Cigarette 05/12/24 14:10 e-Cigarette/Vaping Use Never Used 05/12/24 14:10 Thrive Assessment: Date of Thrive Assessment Date Thrive assessed 10/01/23 05/12/24 14:10 Const General: cooperative and healthy appearing Nutritional Appearance: well nourished Orientation/consciousness: patient oriented x3 Limitations: no limitations HENMT Head: Yes normal to inspection Eyes General: appearance normal, both eyes and all related structures Neck Neck: Yes normal visual inspection Chest Chest palpation & inspection: normal palpation of entire chest wall Resp Effort & Inspection: normal respiratory effort Neuro General: patient oriented x3 Coding Level of Care Code Est Pt Level 3 (20919) Complex EM visit Add On G2211 Diagnoses Diabetes mellitus, insulin dependent (IDDM), controlled Assessment & Plan Assessment & Plan (1) Diabetes mellitus, insulin dependent (IDDM), controlled: Category: Medical Plan: Patient was advised to take the long-acting insulin at 20:00. I have advised her to take a nighttime snack to reduce incidence of hypoglycemia. Patient was advised to continue checking her blood sugars.
[2024-05-12 14:06] VITALS: BP 130/60; PULSE 112; O2SAT 93; BMI 29.0
== END 2024-05-12 16:02 | disposition home or self-care (01) ==
PROVIDERS: PCP Internal Medicine; Visit Provider Internal Medicine
DX: E11.9 Type 2 diabetes mellitus without complications (principal)

== ENCOUNTER → 2024-05-12 13:46 | Outpatient (BNVA) | payer MEDICARE, MEDICAID, SELFPAY | PROVIDERS: PCP Internal Medicine; Visit Provider Internal Medicine | DX: E11.9 Type 2 diabetes mellitus without complications (principal); Z79.4 Long term (current) use of insulin | CPT/HCPCS: 99212 ==

== ENCOUNTER 2024-08-08 22:42 | Inpatient (IN) | payer MEDICARE, MEDICAID, SELFPAY ==
--- NOTE | ~2024-08-08 | CT_ITS ---
CLINICAL HISTORY: Upper abdominal pain, elevated LFT CT abdomen and pelvis without contrast Comparison: CT/SR - ABD PELVIS WO CONT [id number] - 12/30/16 00:31 EDT Findings: The lung bases are clear. The gallbladder is absent. There has been interval development of biliary ductal dilatation. Common duct and intrahepatic ducts are dilated. Minimal dilatation of the intrahepatic ducts. Common duct is dilated to 2.3 cm. Previously common duct measured 7 mm. There is extensive peripancreatic stranding as well as peripancreatic fluid. There is a fluid collection surrounding the caudate lobe. There is a fluid collection anterior to the proximal body of the pancreas measuring 3.9 x 1.4 cm. No dilatation of the pancreatic duct. There is masslike enlargement of the left adrenal gland measuring 2.8 x 2.6 cm, previously measuring 2.9 x 2.7 cm, unchanged. No bowel obstruction, pneumoperitoneum, or pneumatosis. Pelvic contents unremarkable. Small volume ascites. No acute fracture. L4-5 discogenic degenerative change. IMPRESSION: 1. Peripancreatic stranding as well as peripancreatic fluid collection and fluid collection around the caudate lobe concerning for pancreatitis. 2. Interval development of marked common duct dilatation. No pancreatic ductal dilatation. This document has been electronically signed by: Karthik Carolina MD on 08/09/2024 01:30:26
--- NOTE | ~2024-08-08 | MR_ITS ---
. EXAMINATION: MRCP. CLINICAL INFORMATION: Dilated common bile duct. Pancreatitis. Elevated liver function enzymes. COMPARISON: Correlated to CT dated August 09, 2024. TECHNIQUE: Coronal and axial T2 HASTE. Coronal and axial T2 fat sat HASTE. Axial in and out of phase sequences. 3-D space MRCP triggered Coronal oblique T2 fat-sat single slice. FINDINGS: Limited by patient's motion artifact. The common bile duct measures 22 mm near the junction with the cystic duct and 11 mm near the junction with the second portion of the duodenum. No intraluminal signal abnormality. Intrahepatic biliary ductal dilatation, moderate. Liver measures 18 cm. No focal signal abnormality within the parenchyma. Flow-void signal within the main portal vein and its main branches and the intrahepatic portion of the IVC as well as the included hepatic veins is normal in There is fluid/edema involving the peripancreatic and body tail/lesser sac as well as the omentum and the right hemiabdomen. There is edema pattern/fluid in the deep fat planes of the right side of the upper abdomen wall. There is perihepatic fluid, small volume. The largest pocket of the peripancreatic fluid and measures 44 mm. The common bile duct measures 45 mm in maximum diameter near the head of the pancreas. Spleen measures 10 cm. There is a 32 mm nodular lesion in the left adrenal gland with drop off the signal from the in phase to the out of phase sequences. Soft tissue fullness with a 9 mm nodular lesion in the right adrenal gland demonstrated drop-off the signal as well.. There is no hydronephrosis in the kidney. Small subcentimeter cystic lesions in the right kidney. Bilateral pleural effusions, small volume and likely atelectasis in the lung bases. This is no fully evaluated on this exam. No aneurysm or dissection in the included abdominal aorta. MR/MR MRCP IMPRESSION: Moderate to severe biliary ductal dilatation without gross choledocholithiasis. Stricture of the sphincter of Oddi versus intrinsic lesion should be considered. Acute pancreatitis with the moderate to large volume of the peripancreatic fluid/lesser sac with questionable early pseudocyst formation. 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 9 mm lipid rich adenoma, right adrenal gland. Electronically signed by: Jj Shea MD 08/09/2024 01:23 PM MOO
[2024-08-08 22:45] VITALS: BP 119/71; PULSE 131; O2SAT 96
[2024-08-08 22:58] VITALS: BP 129/70; PULSE 90; RESP 22; TEMP 36.7; O2SAT 96
--- NOTE | 2024-08-08 23:15 | PC.NURSE ---
pts POC 408, MD Matta aware, no new orders at this time
[2024-08-08 23:16] LABS: Glucose, Whole Blood 408 mg/dL (60-115)
[2024-08-08 23:35] LABS: MANUAL DIFF FLAG NO
[2024-08-08 23:37] LABS: Basophils Percent Auto 0.1 % (0-2); Eosinophils Percent Auto 0.1 % (0-4); Hemoglobin 13.3 g/dl (12.0-16.0); Imm Gran Abs Auto 0.08 X10*3/uL (0.00-0.03); Imm Gran Pct Auto 0.5 % (0.0-0.4); Lymphocytes Absolute Auto 0.8 X10*3/uL (1.2-4.9); Lymphocytes Percent Auto 4.9 % (20-40); Mean Corpuscular Hemoglobin 29.3 pg (27.0-33.0); Mean Corpuscular Volume 83.7 fL (80.0-98.0); Mean Platelet Volume 10.4 fL (9.4-12.3); Monocytes Absolute Auto 0.9 X10*3/uL (0.1-1.2); Monocytes Percent Auto 5.4 % (2-11); Neutrophils Absolute Auto 15.4 x10*3/uL (2.0-8.3); Platelet Count 219 X10*3/uL (160-400); Red Blood Count 4.54 X10*6/uL (4.20-5.50); Red Cell Distribution Width 14.2 % (11.0-16.0); White Blood Count 17.3 X10*3/uL (4.8-10.8)
[2024-08-08 23:53] LABS: Alanine Aminotransferase 249 U/L (0-31); Albumin Level 3.6 g/dL (3.5-5.0); Alkaline Phosphatase 253 U/L (39-117); Anion Gap 18 (12-20); Aspartate Amino Transferase 131 U/L (5-31); Bilirubin Total 7.2 mg/dL (0.0-1.0); Blood Urea Nitrogen 71 mg/dL (9-16); Calcium 8.9 mg/dL (8.4-10.2); Carbon Dioxide 23 mmol/L (22-29); Chloride 93 mmol/L (96-108); Estimated Glomerular Filt Rate 26; Glucose Random 424 mg/dL (60-115); Potassium 4.8 mmol/L (3.3-5.1); Sodium 129 mmol/L (135-145); Total Protein 7.4 g/dL (6.5-8.0)
[2024-08-09] VITALS (8 sets, daily range): BP systolic 103–149; BP diastolic 46–89; PULSE 98–118; RESP 16–22; TEMP 36–36.9; O2SAT 93–98
[2024-08-09 00:14] LABS: Influenza A PCR NEGATIVE (Negative); Influenza B PCR NEGATIVE (Negative); Resp Syncy Virus RNA Qual PCR NEGATIVE (Negative); SARS COV2 PCR INHOUSE NEGATIVE (Negative)
[2024-08-09] MEDS: 0.9 % Sodium Chloride 1,000 ML 999 ML IV (00:30)
[2024-08-09] MEDS: Insulin Lispro 100 UNIT/ML 3 ML VIAL SUBCUT ×2 (00:31→04:18)
[2024-08-09 00:51] LABS: Lipase 644 U/L (8-78)
[2024-08-09 00:53] LABS: Ammonia 27 umol/L (13-55)
[2024-08-09 00:54] LABS: INTERNATIONAL NORM RATIO 1.3 (0.9-1.1); Prothrombin Time 14.6 SEC (10.9-12.4)
--- NOTE | 2024-08-09 00:55 | ED_ITS ---
HPI - General Adult General Chief complaint: General Medical Stated complaint: flu symptoms, hyperglycemia *498 Time Seen by Provider: 08/08/24 23:07 Source: patient Mode of arrival: EMS Limitations: no limitations History of Present Illness ED Provider: HPI narrative: Patient is status post cholecystectomy and appendectomy with history of diabetes comes here for mid abdominal epigastric pain for last 3 days history with nausea vomiting unable to hold down any fluids feel bloated also had some watery stool no fever no chills , she took her 50 units of Lantus prior to arrival missed her Humalog today because as she did not eat much checked her blood sugar was reading high denies any history of alcohol use no history of pancreatitis patient also noticed dark urine since yesterday patient denies any urinary complaint Related Data Previous Rx's ?Medication ?Instructions ?Recorded flash glucose sensor (FreeStyle #2 ea 12/19/21 Nati 2 Sensor kit) flash glucose scanning reader #1 ea 12/23/21 (FreeStyle Nati 2 [place]) pen needle, diabetic 31 gauge x #1,200 ea 10/11/23 5/16 (BD Ultra-Fine Short Pen Needle) fluticasone propionate 50 1 spray intranasal DAILY #9.9 mL 12/22/23 mcg/actuation nasal spray,suspension (Flonase Allergy Relief) sitagliptin phosphate 100 mg 100 mg PO DAILY #90 tabs 03/01/24 tablet (Januvia) insulin aspart U-100 100 unit/mL 20 unit (0.2 mL) subcut TID #15 mL 05/04/24 (3 mL) subcutaneous pen (Novolog FlexPen U-100 Insulin aspart) nicotine 14 mg/24 hr daily 1 patch transdermal DAILY #7 ea 05/04/24 transdermal patch gabapentin 600 mg tablet 600 mg PO TID #90 tabs 05/12/24 metformin 1,000 mg tablet 1,000 mg PO BID #180 tabs 05/12/24 rosuvastatin 10 mg tablet 10 mg PO DAILY #90 tabs 05/12/24 Basaglar KwikPen U-100 Insulin 100 50 unit (0.5 mL) subcut DAILY #15 07/06/24 unit/mL (3 mL) subcutaneous mL (insulin glargine) lisinopril 10 mg tablet 10 mg PO BID #180 tabs 08/07/24 Allergies Allergy/AdvReac Type Severity Reaction Status Date / Time Sulfa (Sulfonamide Allergy Unknown RASH Verified 08/08/24 23:01 Antibiotics) [SULFA (SULFONAMIDE ANTIBIOTICS)] sulfamethoxazole Allergy Unknown rash Verified 08/08/24 23:01 morphine [MORPHINE] AdvReac Unknown VOMITING Verified 08/08/24 23:01 Review of Systems 2 Review of Systems: Yes all other systems are reviewed and are negative [facility] Past Medical History Medical History 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, 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 Sister Mental health disorder Maternal Aunt Colon cancer Social History Social History Housing: Apartment Alcohol intake: current Alcohol intake frequency: does not drink Patient Tobacco Use Status: Current everyday Tobacco user Tobacco use type: Cigarette Cigarette Packs Per Day: 0.5 Cigarettes Per Day: 10 Years Smoked: 25 Smoked in Last 30 Days: Yes e-Cigarette/Vaping Use: Never Used Second Hand Smoke Exposure: Yes Use of substances other than those prescribed or required for medical reasons: No Advance Directives: No Advance Directives Information Provided: Yes service: No Current occupational status: employed Cognitive needs: No Hearing needs: No Vision needs: Yes (Glasses) Physical Exam ED Vital Signs: Vital Signs - 24 hr 08/08/24 22:58 08/09/24 00:31 08/09/24 02:32 Temperature 98.1 F 98.1 F Pulse Rate 90 118 H 116 H Respiratory Rate 22 H 22 H 21 H Blood Pressure 129/70 134/68 103/46 L Pulse Oximetry 96 97 95 Oxygen Delivery Method Room Air Room Air Room Air BMI result Body Mass Index 30.0 Appearance: Alert. Oriented X3. No acute distress. Eyes: No pallor, icterus+ ENT: Pharynx normal. Oral Mucosa moist Neck: Normal inspection. Neck supple. CVS: Normal heart rate and rhythm. Pulses normal. Respiratory: No respiratory distress. Equal air entry bilateral, no wheezing/rales/rhonchi Abdomen: Soft and tenderness in mid abdomen epigastric area with guarding no rebound tenderness Bowel sounds are present, no mass palpable, no CVA tenderness Skin: Skin warm and dry. Normal skin color. Normal skin turgor. Extremities: No lower extremity edema. No calf tenderness Neuro: Oriented X 3. No motor deficit. No sensory deficit.No cerebellar signs , cranial nerves II-XII intact Medications Administered Generic Name Dose Route Start Last Admin Trade Name Freq PRN Reason Stop Dose Admin Lactated Ringer's 1,000 mls @ 125 mls/hr 08/09/24 03:15 08/09/24 03:40 Lr IVCONT 125 mls/hr .Q8H SALLY Administration Piperacillin Sod/Tazobactam 100 mls @ 200 mls/hr 08/09/24 04:00 08/09/24 04:40 Sod 4.5 gm/ Sodium Chloride IV Infused Q8H SALLY Infusion Insulin Human Lispro 0 unit 08/09/24 04:00 08/09/24 04:18 Insulin Lispro 100 Unit/Ml 3 Ml Vial SUBCUT 4 unit Q6H SALLY Administration Protocol Sodium Chloride 3 ml 08/09/24 08:00 08/09/24 06:48 0.9 % Sodium Chloride Flush 3 Ml Syringe IVFLUSH Not Given QSHIFT SALLY Discontinued Medications Generic Name Dose Route Start Last Admin Trade Name Freq PRN Reason Stop Dose Admin Ceftriaxone Sodium 2 gm 08/09/24 01:47 08/09/24 02:20 Ceftriaxone Sodium 2 Gm Vial IVPUSH 08/09/24 01:48 2 gm ONCE ONE Administration Sodium Chloride 1,000 mls @ 999 mls/hr 08/09/24 00:20 08/09/24 02:33 Ns IV 08/09/24 01:20 Infused .Q1H1M ONE Infusion Insulin Human Lispro 5 unit 08/09/24 00:20 08/09/24 00:31 Insulin Lispro 100 Unit/Ml 3 Ml Vial SUBCUT 08/09/24 00:21 5 unit ONCE ONE Administration Insulin Human Lispro 8 unit 08/09/24 01:34 08/09/24 01:42 Insulin Lispro 100 Unit/Ml 3 Ml Vial SUBCUT 08/09/24 01:35 8 unit ONCE ONE Administration Insulin Human Regular 5 unit 08/09/24 03:13 08/09/24 03:41 Insulin Regular, Human 100 Unit/Ml 10 Ml Vial IVPUSH 08/09/24 03:14 5 unit ONCE ONE Administration Morphine Sulfate 4 mg 08/09/24 01:55 08/09/24 02:20 Morphine Sulfate 4 Mg/Ml Cartridge IVPUSH 08/09/24 01:56 4 mg ONCE ONE Administration Protocol Nicotine 14 mg 08/09/24 03:17 08/09/24 03:40 Nicotine 14 Mg Patch.Td24 TRANSDERMA 08/09/24 03:18 14 mg ONCE ONE Administration Ondansetron HCl 4 mg 08/09/24 01:55 08/09/24 02:19 Ondansetron Hcl 4 Mg/2 Ml Vial IVPUSH 08/09/24 01:56 4 mg ONCE ONE Administration Medical Decision Making Medical Decision Making [facility] Narrative: Patient has acute pancreatitis status post cholecystectomy with normal triglyceride level nonalcoholic with elevated liver functions at dilated common bile duct likely from the stone formation in CBD will admit patient for further evaluation including MRCP hospitalist to admit the patient Differential Diagnosis Differential Diagnoses: The differential diagnosis associated with the presentation includes Admission/Observation Consideration of admission/observation: Escalation of care including admission/observation considered Consult Healthcare Provider Management of the patient was discussed with: Hospitalist Lab Data [facility] Lab Attestation statement: I reviewed the patient's lab results. 08/09/24 05:22 08/09/24 05:22 Labs: Lab Results 08/08/24 08/08/24 08/09/24 Range/Units 23:09 23:30 00:41 WBC 17.3 H (4.8-10.8) X10*3/uL RBC 4.54 (4.20-5.50) X10*6/uL Hgb 13.3 (12.0-16.0) g/dl Hct 38.0 (37.0-47.0) % MCV 83.7 (80.0-98.0) fL MCH 29.3 (27.0-33.0) pg MCHC 35.0 (31.0-35.0) g/dl RDW 14.2 (11.0-16.0) % Plt Count 219 (160-400) X10*3/uL MPV 10.4 (9.4-12.3) fL Immature Gran % (Auto) 0.5 H (0.0-0.4) % Neut % (Auto) 89.0 H (45-73) % Lymph % (Auto) 4.9 L (20-40) % [place] % (Auto) 5.4 (2-11) % Eos % (Auto) 0.1 (0-4) % Baso % (Auto) 0.1 (0-2) % Lymph # (Auto) 0.8 L (1.2-4.9) X10*3/uL [place] # (Auto) 0.9 (0.1-1.2) X10*3/uL Eos # (Auto) 0.0 (0.0-0.4) X10*3/uL Baso # (Auto) 0.0 (0.0-0.2) X10*3/uL Abs Immat Gran (auto) 0.08 H (0.00-0.03) X10*3/uL Absolute Neuts (auto) 15.4 H (2.0-8.3) x10*3/uL Absolute Nucleated RBC 0.000 (0.0-0.012) X10*3/uL Nucleated RBC % (auto) 0.0 (0.0-0.2) /100WBC PT 14.6 H (10.9-12.4) SEC INR 1.3 H (0.9-1.1) APTT 28.5 (26.0-36.8) SEC Sodium 129 L (135-145) mmol/L Potassium 4.8 (3.3-5.1) mmol/L Chloride 93 L (96-108) mmol/L Carbon Dioxide 23 (22-29) mmol/L Anion Gap 18 (12-20) BUN 71 H (9-16) mg/dL Creatinine 1.93 H (0.5-1.4) mg/dL Estim Creat Clear Calc 31.0 Estimated GFR 26 POC Glucose 408 H* (60-115) mg/dL Random Glucose 424 H* (60-115) mg/dL Lactic Acid (0.5-2.0) mmol/L Calcium 8.9 (8.4-10.2) mg/dL Total Bilirubin 7.2 H (0.0-1.0) mg/dL AST 131 H (5-31) U/L ALT 249 H (0-31) U/L Alkaline Phosphatase 253 H (39-117) U/L Ammonia 27 (13-55) umol/L Total Protein 7.4 (6.5-8.0) g/dL Albumin 3.6 (3.5-5.0) g/dL Triglycerides 121 (<150) mg/dL Lipase 644 H (8-78) U/L Urine Color Urine Appearance Urine pH (5.0-9.0) Ur Specific [place] (1.005-1.025) Urine Protein (Neg-Trace) mg/dL Urine Glucose (UA) (Negative) mg/dL Urine Ketones (Negative) mg/dL Urine Blood (Negative) Urine Nitrite (Negative) Ur Leukocyte Esterase (Negative) Urine RBC (0-2) /HPF Urine WBC (0-5) /HPF Ur Squamous Epith Cells (0-2) /HPF Urine Bacteria (None Seen) Hyaline Casts (0-2) /LPF Granular Casts Influenza Type A (PCR) NEGATIVE (Negative) Influenza Type B (PCR) NEGATIVE (Negative) RSV RNA Qual (PCR) NEGATIVE (Negative) SARS-CoV-2 RNA (RT-PCR) NEGATIVE (Negative) 08/09/24 08/09/24 08/09/24 Range/Units 01:16 01:20 02:09 WBC (4.8-10.8) X10*3/uL RBC (4.20-5.50) X10*6/uL Hgb (12.0-16.0) g/dl Hct (37.0-47.0) % MCV (80.0-98.0) fL MCH (27.0-33.0) pg MCHC (31.0-35.0) g/dl RDW (11.0-16.0) % Plt Count (160-400) X10*3/uL MPV (9.4-12.3) fL Immature Gran % (Auto) (0.0-0.4) % Neut % (Auto) (45-73) % Lymph % (Auto) (20-40) % [place] % (Auto) (2-11) % Eos % (Auto) (0-4) % Baso % (Auto) (0-2) % Lymph # (Auto) (1.2-4.9) X10*3/uL [place] # (Auto) (0.1-1.2) X10*3/uL Eos # (Auto) (0.0-0.4) X10*3/uL Baso # (Auto) (0.0-0.2) X10*3/uL Abs Immat Gran (auto) (0.00-0.03) X10*3/uL Absolute Neuts (auto) (2.0-8.3) x10*3/uL Absolute Nucleated RBC (0.0-0.012) X10*3/uL Nucleated RBC % (auto) (0.0-0.2) /100WBC PT (10.9-12.4) SEC INR (0.9-1.1) APTT (26.0-36.8) SEC Sodium (135-145) mmol/L Potassium (3.3-5.1) mmol/L Chloride (96-108) mmol/L Carbon Dioxide (22-29) mmol/L Anion Gap (12-20) BUN (9-16) mg/dL Creatinine (0.5-1.4) mg/dL Estim Creat Clear Calc Estimated GFR POC Glucose 379 H* (60-115) mg/dL Random Glucose (60-115) mg/dL Lactic Acid 1.8 (0.5-2.0) mmol/L Calcium (8.4-10.2) mg/dL Total Bilirubin (0.0-1.0) mg/dL AST (5-31) U/L ALT (0-31) U/L Alkaline Phosphatase (39-117) U/L Ammonia (13-55) umol/L Total Protein (6.5-8.0) g/dL Albumin (3.5-5.0) g/dL Triglycerides (<150) mg/dL Lipase (8-78) U/L Urine Color Dark Yellow Urine Appearance Turbid Urine pH 5.0 (5.0-9.0) Ur Specific [place] 1.020 (1.005-1.025) Urine Protein 30 (1+) H (Neg-Trace) mg/dL Urine Glucose (UA) 250 H (Negative) mg/dL Urine Ketones Negative (Negative) mg/dL Urine Blood Small (1+) H (Negative) Urine Nitrite Positive H (Negative) Ur Leukocyte Esterase Small (1+) H (Negative) Urine RBC 3-5 H (0-2) /HPF Urine WBC 0-5 (0-5) /HPF Ur Squamous Epith Cells 11-20 (0-2) /HPF Urine Bacteria 1+ (None Seen) Hyaline Casts 6-10 (0-2) /LPF Granular Casts Present Influenza Type A (PCR) (Negative) Influenza Type B (PCR) (Negative) RSV RNA Qual (PCR) (Negative) SARS-CoV-2 RNA (RT-PCR) (Negative) 08/09/24 Range/Units 03:09 WBC (4.8-10.8) X10*3/uL RBC (4.20-5.50) X10*6/uL Hgb (12.0-16.0) g/dl Hct (37.0-47.0) % MCV (80.0-98.0) fL MCH (27.0-33.0) pg MCHC (31.0-35.0) g/dl RDW (11.0-16.0) % Plt Count (160-400) X10*3/uL MPV (9.4-12.3) fL Immature Gran % (Auto) (0.0-0.4) % Neut % (Auto) (45-73) % Lymph % (Auto) (20-40) % [place] % (Auto) (2-11) % Eos % (Auto) (0-4) % Baso % (Auto) (0-2) % Lymph # (Auto) (1.2-4.9) X10*3/uL [place] # (Auto) (0.1-1.2) X10*3/uL Eos # (Auto) (0.0-0.4) X10*3/uL Baso # (Auto) (0.0-0.2) X10*3/uL Abs Immat Gran (auto) (0.00-0.03) X10*3/uL Absolute Neuts (auto) (2.0-8.3) x10*3/uL Absolute Nucleated RBC (0.0-0.012) X10*3/uL Nucleated RBC % (auto) (0.0-0.2) /100WBC PT (10.9-12.4) SEC INR (0.9-1.1) APTT (26.0-36.8) SEC Sodium (135-145) mmol/L Potassium (3.3-5.1) mmol/L Chloride (96-108) mmol/L Carbon Dioxide (22-29) mmol/L Anion Gap (12-20) BUN (9-16) mg/dL Creatinine (0.5-1.4) mg/dL Estim Creat Clear Calc Estimated GFR POC Glucose 270 H (60-115) mg/dL Random Glucose (60-115) mg/dL Lactic Acid (0.5-2.0) mmol/L Calcium (8.4-10.2) mg/dL Total Bilirubin (0.0-1.0) mg/dL AST (5-31) U/L ALT (0-31) U/L Alkaline Phosphatase (39-117) U/L Ammonia (13-55) umol/L Total Protein (6.5-8.0) g/dL Albumin (3.5-5.0) g/dL Triglycerides (<150) mg/dL Lipase (8-78) U/L Urine Color Urine Appearance Urine pH (5.0-9.0) Ur Specific [place] (1.005-1.025) Urine Protein (Neg-Trace) mg/dL Urine Glucose (UA) (Negative) mg/dL Urine Ketones (Negative) mg/dL Urine Blood (Negative) Urine Nitrite (Negative) Ur Leukocyte Esterase (Negative) Urine RBC (0-2) /HPF Urine WBC (0-5) /HPF Ur Squamous Epith Cells (0-2) /HPF Urine Bacteria (None Seen) Hyaline Casts (0-2) /LPF Granular Casts Influenza Type A (PCR) (Negative) Influenza Type B (PCR) (Negative) RSV RNA Qual (PCR) (Negative) SARS-CoV-2 RNA (RT-PCR) (Negative) Independent Interpretation I performed an independent interpretation of an: CT Scan Radiology Impression Discussion of test interpretation with radiology: I have reviewed the radiologist's reading. Radiologist Impression: [address] [address] [address] Scan Report Signed Patient: Aarti Meyer MR#: [id number] : 1960 Acct:[id number] Age/Sex: 63 / F ADM Date: 08/08/24 Loc: HO.ED Attending Dr: Ordering Physician: Lucio Matta MD Date of Service: 08/09/24 Procedure(s): CT abdomen pelvis wo IV con Accession Number(s): [id number] cc: Tommie Chavis MD; Lucio Matta MD~ Report Number: [id number]: Total DLP = 610.00 mGy-cm CLINICAL HISTORY: Upper abdominal pain, elevated LFT CT abdomen and pelvis without contrast Comparison: CT/SR - ABD PELVIS WO CONT [id number] - 12/30/16 00:31 EDT Findings: The lung bases are clear. The gallbladder is absent. There has been interval development of biliary ductal dilatation. Common duct and intrahepatic ducts are dilated. Minimal dilatation of the intrahepatic ducts. Common duct is dilated to 2.3 cm. Previously common duct measured 7 mm. There is extensive peripancreatic stranding as well as peripancreatic fluid. There is a fluid collection surrounding the caudate lobe. There is a fluid collection anterior to the proximal body of the pancreas measuring 3.9 x 1.4 cm. No dilatation of the pancreatic duct. There is masslike enlargement of the left adrenal gland measuring 2.8 x 2.6 cm, previously measuring 2.9 x 2.7 cm, unchanged. No bowel obstruction, pneumoperitoneum, or pneumatosis. Pelvic contents unremarkable. Small volume ascites. No acute fracture. L4-5 discogenic degenerative change. IMPRESSION: 1. Peripancreatic stranding as well as peripancreatic fluid collection and fluid collection around the caudate lobe concerning for pancreatitis. 2. Interval development of marked common duct dilatation. No pancreatic ductal dilatation. This document has been electronically signed by: Karthik Carolina MD on 08/09/2024 01:30:26 Discharge Plan Discharge Clinical Impression: Acute pancreatitis, Obstructive jaundice Patient Disposition: Admitted As Inpatient
[2024-08-09 00:57] LABS: Partial Thromboplastin Time 28.5 SEC (26.0-36.8)
[2024-08-09 01:22] LABS: Appearance Urine Turbid; Color Urine Dark Yellow; Glucose Urine UA 250 mg/dL (Negative); Leukocyte Esterase Urine Small (1+) (Negative); Nitrite Urine Positive (Negative); UMIC TRIGGER UACC YES; Urine Blood Small (1+) (Negative); Urine Ketones Negative (Negative); Urine Protein 30 (1+) mg/dL (Neg-Trace)
[2024-08-09 01:23] LABS: Glucose, Whole Blood 379 mg/dL (60-115)
[2024-08-09 01:38] LABS: Bacteria Urine 1+ (None Seen); Granular Casts Urine Present; UACC Culture Trigger YES; WBC Urine 0-5 /HPF (0-5)
[2024-08-09] MEDS: Insulin Lispro 100 UNIT/ML 3 ML VIAL 8 UNIT SUBCUT (01:42)
[2024-08-09 01:45] LABS: Triglycerides 121 mg/dL (<150)
[2024-08-09] MEDS: ondansetron HCL 4 MG/2 ML VIAL IVPUSH (02:19)
[2024-08-09] MEDS: Morphine Sulfate 4 MG/ML CARTRIDGE IVPUSH ×2 (02:20→10:27)
[2024-08-09] MEDS: cefTRIAXone sodium 2 GM VIAL IVPUSH (02:20)
[2024-08-09 02:34] LABS: Lactic Acid 1.8 mmol/L (0.5-2.0)
[2024-08-09 03:14] LABS: Glucose, Whole Blood 270 mg/dL (60-115)
--- NOTE | 2024-08-09 03:17 | PM.IMHP ---
History of Present Illness Date of Service: 08/09/24 Chief Complaint: Abd pain This has a 63-year-old female with pertinent history of insulin-dependent diabetes mellitus, mixed hyperlipidemia, tobacco use disorder, hypertension, peripheral vascular disease who presents to the emergency department for evaluation of abdominal pain, nausea and vomiting. Patient states her symptoms started 2-3 days prior to presentation. She has been having epigastric pain with intermittent radiation to the back and down to the pubis. Also has associated nonbloody emesis and nausea. Unable to tolerate p.o. intake due to vomiting. Does have a history of cholecystectomy and appendicectomy. No history of similar pain or pancreatitis in the past. Denies alcohol use. Does endorse smoking tobacco. Also noticed watery stool and dark urine. No fever, chills, chest pain, palpitations, shortness of breath. In the emergency department, serum lipase found to be elevated and imaging with acute pancreatitis. Also CBD found to be elevated on imaging. Patient found to have hyperbilirubinemia with elevated transaminases and elevated alkaline phosphatase. 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 Sister Mental health disorder Maternal Aunt Colon cancer Surgical History Hx of left cataract extraction Hx of left breast biopsy Hx of colonoscopy Hx of tubal ligation History of Hx of ovarian cystectomy Hx of non-cataract eye surgery Hx of appendectomy Hx laparoscopic cholecystectomy Social History Housing: Apartment Alcohol intake: current Alcohol intake frequency: does not drink Patient Tobacco Use Status: Current everyday Tobacco user Tobacco use type: Cigarette Cigarette Packs Per Day: 0.5 Cigarettes Per Day: 10 Years Smoked: 25 Smoked in Last 30 Days: Yes e-Cigarette/Vaping Use: Never Used Second Hand Smoke Exposure: Yes Use of substances other than those prescribed or required for medical reasons: No Advance Directives: No Advance Directives Information Provided: Yes service: No Current occupational status: employed Cognitive needs: No Hearing needs: No Vision needs: Yes (Glasses) Meds Allergies Allergy/AdvReac Type Severity Reaction Status Date / Time Sulfa (Sulfonamide Allergy Unknown RASH Verified 08/08/24 23:01 Antibiotics) [SULFA (SULFONAMIDE ANTIBIOTICS)] sulfamethoxazole Allergy Unknown rash Verified 08/08/24 23:01 morphine [MORPHINE] AdvReac Unknown VOMITING Verified 08/08/24 23:01 Active Medications: Current Medications Insulin Human Regular (Insulin Regular, Human 100 Unit/Ml 10 Ml Vial) 5 unit IVPUSH ONCE ONE Stop: 08/09/24 03:14 Physical Exam Vital Signs and Narrative: Vital Signs: Last Vital Signs Temp 98.1 F 08/09/24 02:32 Pulse 116 H 08/09/24 02:32 Resp 21 H 08/09/24 02:32 BP 103/46 L 08/09/24 02:32 Pulse Ox 95 08/09/24 02:32 O2 Del Method Room Air 08/09/24 02:32 BMI result Body Mass Index 30.0 Middle-aged female lying in bed in no distress Neck supple, no JVD Tachycardic with a regular rhythm, S1-S2 heard Regular breath sounds bilaterally, no wheezing or crackles appreciated Abdomen with a epigastric tenderness, no rigidity Patient is awake, alert and oriented to self, place, time and person ; no focal motor deficit Psych: Normal mood No pedal edema Results Labs 08/09/24 05:22 08/08/24 23:30 Labs: Laboratory Results - last 24 hr 08/08/24 08/08/24 08/09/24 23:09 23:30 00:41 MCV 83.7 MCH 29.3 MCHC 35.0 RDW 14.2 Plt Count 219 MPV 10.4 Immature Gran % (Auto) 0.5 H Neut % (Auto) 89.0 H Lymph % (Auto) 4.9 L [place] % (Auto) 5.4 Eos % (Auto) 0.1 Baso % (Auto) 0.1 Lymph # (Auto) 0.8 L [place] # (Auto) 0.9 Eos # (Auto) 0.0 Baso # (Auto) 0.0 Abs Immat Gran (auto) 0.08 H Absolute Neuts (auto) 15.4 H Absolute Nucleated RBC 0.000 Nucleated RBC % (auto) 0.0 PT 14.6 H INR 1.3 H APTT 28.5 Anion Gap 18 Estim Creat Clear Calc 31.0 Estimated GFR 26 POC Glucose 408 H* Random Glucose 424 H* Lactic Acid Calcium 8.9 Total Bilirubin 7.2 H AST 131 H ALT 249 H Alkaline Phosphatase 253 H Ammonia 27 Total Protein 7.4 Albumin 3.6 Triglycerides 121 Lipase 644 H Urine Color Urine Appearance Urine pH Ur Specific [place] Urine Protein Urine Glucose (UA) Urine Ketones Urine Blood Urine Nitrite Ur Leukocyte Esterase Urine RBC Urine WBC Ur Squamous Epith Cells Urine Bacteria Hyaline Casts Granular Casts Influenza Type A (PCR) NEGATIVE Influenza Type B (PCR) NEGATIVE RSV RNA Qual (PCR) NEGATIVE SARS-CoV-2 RNA (RT-PCR) NEGATIVE 08/09/24 08/09/24 08/09/24 01:16 01:20 02:09 MCV MCH MCHC RDW Plt Count MPV Immature Gran % (Auto) Neut % (Auto) Lymph % (Auto) [place] % (Auto) Eos % (Auto) Baso % (Auto) Lymph # (Auto) [place] # (Auto) Eos # (Auto) Baso # (Auto) Abs Immat Gran (auto) Absolute Neuts (auto) Absolute Nucleated RBC Nucleated RBC % (auto) PT INR APTT Anion Gap Estim Creat Clear Calc Estimated GFR POC Glucose 379 H* Random Glucose Lactic Acid 1.8 Calcium Total Bilirubin AST ALT Alkaline Phosphatase Ammonia Total Protein Albumin Triglycerides Lipase Urine Color Dark Yellow Urine Appearance Turbid Urine pH 5.0 Ur Specific [place] 1.020 Urine Protein 30 (1+) H Urine Glucose (UA) 250 H Urine Ketones Negative Urine Blood Small (1+) H Urine Nitrite Positive H Ur Leukocyte Esterase Small (1+) H Urine RBC 3-5 H Urine WBC 0-5 Ur Squamous Epith Cells 11-20 Urine Bacteria 1+ Hyaline Casts 6-10 Granular Casts Present Influenza Type A (PCR) Influenza Type B (PCR) RSV RNA Qual (PCR) SARS-CoV-2 RNA (RT-PCR) 08/09/24 03:09 MCV MCH MCHC RDW Plt Count MPV Immature Gran % (Auto) Neut % (Auto) Lymph % (Auto) [place] % (Auto) Eos % (Auto) Baso % (Auto) Lymph # (Auto) [place] # (Auto) Eos # (Auto) Baso # (Auto) Abs Immat Gran (auto) Absolute Neuts (auto) Absolute Nucleated RBC Nucleated RBC % (auto) PT INR APTT Anion Gap Estim Creat Clear Calc Estimated GFR POC Glucose 270 H Random Glucose Lactic Acid Calcium Total Bilirubin AST ALT Alkaline Phosphatase Ammonia Total Protein Albumin Triglycerides Lipase Urine Color Urine Appearance Urine pH Ur Specific [place] Urine Protein Urine Glucose (UA) Urine Ketones Urine Blood Urine Nitrite Ur Leukocyte Esterase Urine RBC Urine WBC Ur Squamous Epith Cells Urine Bacteria Hyaline Casts Granular Casts Influenza Type A (PCR) Influenza Type B (PCR) RSV RNA Qual (PCR) SARS-CoV-2 RNA (RT-PCR) Assessment and Plan (1) Acute pancreatitis: Status: Acute (2) Acute kidney injury: Status: Acute Plan This has a 63-year-old female with pertinent history of insulin-dependent diabetes mellitus, mixed hyperlipidemia, tobacco use disorder, hypertension, peripheral vascular disease who presents to the emergency department for evaluation of abdominal pain, nausea and vomiting. #. Acute pancreatitis: Will admit patient with IV opioids p.r.n. for analgesia. Continue IV crystalloid resuscitation. NPO for bowel rest. Noted dilated CBD, hyperbilirubinemia, elevated transaminases and alkaline phosphatase. Obtaining MRCP. Patient denies alcohol use. Triglycerides normal. Obtaining GI consult. Will quantify hyperbilirubinemia and ordered empiric Zosyn. #. Insulin-dependent diabetes mellitus with hyperglycemia: Reduce home basal insulin as patient is NPO. Initiating Accu-Cheks with sliding scale insulin every 6 hours. Hold metformin #. Pseudohyponatremia due to hyperglycemia #. Acute kidney injury stage I: Prerenal. Monitor with crystalloid resuscitation. Avoid nephrotoxins #. Tobacco use disorder: Nicotine patch while in the hospital. #. Hypertension: Hold lisinopril in the setting of MONIQUE #. Mixed hyperlipidemia: Hold rosuvastatin in the setting of elevated transaminases Med rec pending DVT prophylaxis: Lovenox Full code Admit as inpatient and will require two night minimum hospital stay for IV crystalloid resuscitation, IV opioids for analgesia, IV antibiotics, monitoring of kidney function (as above), which is not possible in a lesser acute setting. Specialist consult pending Quality Stroke Does the patient have a stroke diagnosis?: No VTE Prior VTE?: No VTE Risk Level:: Medical - moderate - high VTE Device Contraindication: Treatment Not Indicated VTE Drug Contraindication: N/A - Med Ordered
[2024-08-09] MEDS: Nicotine 14 MG PATCH.TD24 TRANSDERMA (03:40)
[2024-08-09] MEDS: Lactated Ringers 1,000 ML 125 ML IVCONT ×3 (03:40→21:20)
[2024-08-09] MEDS: Insulin Regular, Human 100 UNIT/ML 10 ML VIAL IVPUSH (03:41)
[2024-08-09] MEDS: Piperacillin Sodium/Tazobactam 4.5 GM in 0.9 % Sodium Chloride 100 ML IV ×3 (04:01→20:10)
[2024-08-09 04:15] LABS: Glucose, Whole Blood 204 mg/dL (60-115)
[2024-08-09 06:02] LABS: MANUAL DIFF FLAG NO
--- NOTE | 2024-08-09 06:03 | PC.NURSE ---
Pt from home [facility], having stomach flu like sx since thursday with nausea, vomiting, diarrhea, no recorded fevers. Pt reports last episode of vomit was just prior to arrival and unable to tolerate any food or meds by mouth. Pt also reporting high blood sugar reads per her glucometer. Pt is a&o x3, able to ambulate with steady gait, able to make her needs known, and using bedside commode. Pt being admitted for acute pancreatitis. Pt has 20G IV in RFA and LAC, LR running @ 125ml/hr. Pt received 4 mg of morphine IV with zofran for 10/10 abdominal pain,(pt states allergy reaction to morphine is nausea), medication was effective and tolerated well.
[2024-08-09 06:05] LABS: Basophils Percent Auto 0.1 % (0-2); Eosinophils Percent Auto 0.1 % (0-4); Hemoglobin 12.3 g/dl (12.0-16.0); Imm Gran Abs Auto 0.05 X10*3/uL (0.00-0.03); Imm Gran Pct Auto 0.3 % (0.0-0.4); Lymphocytes Absolute Auto 1.2 X10*3/uL (1.2-4.9); Lymphocytes Percent Auto 8.2 % (20-40); Mean Corpuscular HGB Conc 34.2 g/dl (31.0-35.0); Mean Corpuscular Hemoglobin 28.9 pg (27.0-33.0); Mean Corpuscular Volume 84.7 fL (80.0-98.0); Mean Platelet Volume 10.6 fL (9.4-12.3); Monocytes Absolute Auto 0.8 X10*3/uL (0.1-1.2); Monocytes Percent Auto 5.2 % (2-11); Neutrophils Absolute Auto 12.3 x10*3/uL (2.0-8.3); Neutrophils Percent Auto 86.1 % (45-73); Platelet Count 214 X10*3/uL (160-400); Red Blood Count 4.25 X10*6/uL (4.20-5.50); Red Cell Distribution Width 14.2 % (11.0-16.0); White Blood Count 14.3 X10*3/uL (4.8-10.8)
[2024-08-09 06:42] LABS: Alanine Aminotransferase 216 U/L (0-31); Albumin Level 3.3 g/dL (3.5-5.0); Alkaline Phosphatase 240 U/L (39-117); Anion Gap 16 (12-20); Aspartate Amino Transferase 130 U/L (5-31); Bilirubin Direct 5.3 mg/dL (0.0-0.5); Bilirubin Total 6.4 mg/dL (0.0-1.0); Blood Urea Nitrogen 78 mg/dL (9-16); Calcium 8.3 mg/dL (8.4-10.2); Carbon Dioxide 22 mmol/L (22-29); Chloride 101 mmol/L (96-108); Creatinine Clr Calc Pharmacy 34.9; Estimated Glomerular Filt Rate 30; Glucose Random 147 mg/dL (60-115); Potassium 4.1 mmol/L (3.3-5.1); Sodium 135 mmol/L (135-145); Total Protein 6.9 g/dL (6.5-8.0)
--- NOTE | 2024-08-09 08:00 | PM.EVENT ---
Event Note Date of Service: 08/09/24 Event Note: GI-Consult received and patient to be seen later Imp: Appears c/w biliary source of pancreatitis, ? CBD stone Rec: Supportive care with IV fluids, antibiotics, close monitoring of labs, NPO, and ERCP pending results of MRCP and clinical course. Hold Lovenox until we know timing of potential ERCP. Thanks Time Spent With Patient Time: Total time managing care of this patient today ____ minutes.
[2024-08-09 08:23] LABS: Lipase 432 U/L (8-78)
--- NOTE | 2024-08-09 08:38 | PHA.MEDREC ---
Addendum entered by Rhett Buck RPh 08/09/24 13:03: Med rec was reviewed by [facility]. Original Note: Pharmacy Consult ? Medication Reconciliation Pharmacy has completed the medication reconciliation. Spoke to patient to confirm med list. Patient states she no longer takes Fluticasone prop 50 mcg nasal spray, Gabapentin 600 mg, and Nicotine 14 mg/24hr patch. Patient confirmed Basaglar 50 units at bed and Fiasp Flextouch 20 units TID.
[2024-08-09 10:25] LABS: Glucose, Whole Blood 124 mg/dL (60-115)
--- NOTE | 2024-08-09 10:46 | MHC.CM.PN ---
CM met with Patient at bedside, in the ED, and addressed IMM with her, providing Patient with the original and a copy will be placed on the chart. 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 Radha/self care is Patient's goal and CM has initiated and will follow for dc planning. PCP is Dr. Chavis and Daughter will transport to home.
[2024-08-09 11:12] LABS: MANUAL DIFF FLAG NO
[2024-08-09 11:15] LABS: Basophils Percent Auto 0.3 % (0-2); Hematocrit 34.1 % (37.0-47.0); Hemoglobin 11.7 g/dl (12.0-16.0); Imm Gran Abs Auto 0.02 X10*3/uL (0.00-0.03); Imm Gran Pct Auto 0.2 % (0.0-0.4); Lymphocytes Absolute Auto 0.9 X10*3/uL (1.2-4.9); Lymphocytes Percent Auto 8.3 % (20-40); Mean Corpuscular HGB Conc 34.3 g/dl (31.0-35.0); Mean Corpuscular Hemoglobin 29.1 pg (27.0-33.0); Mean Corpuscular Volume 84.8 fL (80.0-98.0); Monocytes Absolute Auto 0.7 X10*3/uL (0.1-1.2); Monocytes Percent Auto 5.9 % (2-11); Neutrophils Absolute Auto 9.7 x10*3/uL (2.0-8.3); Neutrophils Percent Auto 85.3 % (45-73); Platelet Count 198 X10*3/uL (160-400); Red Blood Count 4.02 X10*6/uL (4.20-5.50); Red Cell Distribution Width 14.1 % (11.0-16.0); White Blood Count 11.4 X10*3/uL (4.8-10.8)
[2024-08-09 11:53] LABS: Alanine Aminotransferase 198 U/L (0-31); Albumin Level 3.1 g/dL (3.5-5.0); Alkaline Phosphatase 233 U/L (39-117); Anion Gap 13 (12-20); Aspartate Amino Transferase 135 U/L (5-31); Bilirubin Direct 4.9 mg/dL (0.0-0.5); Bilirubin Total 5.9 mg/dL (0.0-1.0); Blood Urea Nitrogen 70 mg/dL (9-16); Calcium 8.2 mg/dL (8.4-10.2); Carbon Dioxide 24 mmol/L (22-29); Chloride 102 mmol/L (96-108); Estimated Glomerular Filt Rate 35; Glucose Fasting 134 mg/dL (60-99); Sodium 135 mmol/L (135-145); Total Protein 6.4 g/dL (6.5-8.0)
--- NOTE | 2024-08-09 12:24 | PC.NURSE ---
patient to mri, fluids paused
--- NOTE | 2024-08-09 14:11 | HO.PM.IMPN ---
Subjective Subjective Date of Service: 08/09/24 Interval History: Seen and examined, abdominal pain is better doesn't drink, alcohol, has had CCy Physical Exam Vital Signs: Vital Signs: Last Vital Signs Temp 98 F 08/09/24 07:52 Pulse 104 H 08/09/24 07:52 Resp 20 08/09/24 07:52 BP 105/64 08/09/24 07:52 Pulse Ox 97 08/09/24 07:52 O2 Del Method Room Air 08/09/24 07:52 BMI result Body Mass Index 30.0 Const: Other: General: AO X 3, no acute distress Resp: CTA bilateral CVS: S1,S2,RRR GI: +BS, mild tenderness in epig, no distention Skin: No rash Neuro: motor grossly intact Psych: appropriate affect Objective Data Active Medications Acetaminophen (Acetaminophen 325 Mg Tablet) 650 mg PO Q6H PRN PRN Reason: Pain, Mild 1-3,fever,headache Calcium Carbonate (Calcium Carbonate 750 Mg Tab.Chew) 750 mg PO Q4H PRN PRN Reason: Heartburn Dextrose (Dextrose 50 % 25 Gm/50 Ml Syringe) 25 gm IVPUSH Q15M PRN; Protocol PRN Reason: per Hypoglycemia Standing Ord. Glucose (Glucose Gel 15 Gm Gel..Gram.) 15 gm PO Q15M PRN; Protocol PRN Reason: per Hypoglycemia Standing Ord. Lactated Ringer's (Lr) 1,000 mls @ 125 mls/hr IVCONT .Q8H [facility] Last Infusion: 08/09/24 14:10 Dose: 125 mls/hr Documented By: NAHID Piperacillin Sod/Tazobactam (Sod 4.5 gm/ Sodium Chloride) 100 mls @ 200 mls/hr IV Q8H [facility] Last Infusion: 08/09/24 04:40 Dose: Infused Documented By: ZAIRA Insulin Human Lispro (Insulin Lispro 100 Unit/Ml 3 Ml Vial) 0 unit SUBCUT Q6H [facility]; Protocol Last Admin: 08/09/24 10:24 Dose: Not Given Documented By: NAHID Non-Admin Reason: No Insulin Coverage Magnesium Hydroxide (Milk Of Magnesia 30 Ml Oral.Susp) 30 ml PO DAILY PRN PRN Reason: Constipation Melatonin (Melatonin 3 Mg Tablet) 6 mg PO BEDTIME PRN PRN Reason: Insomnia Morphine Sulfate (Morphine Sulfate 4 Mg/Ml Cartridge) 4 mg IVPUSH Q4H PRN; Protocol PRN Reason: Pain, Severe (Pain Scale 7-10) Last Admin: 08/09/24 10:27 Dose: 4 mg Documented By: NAHID Ondansetron HCl (Ondansetron Hcl 4 Mg/2 Ml Vial) 4 mg IVPUSH Q8H PRN PRN Reason: Nausea and Vomiting Sodium Chloride (0.9 % Sodium Chloride Flush 3 Ml Syringe) 3 ml IVFLUSH QSHIFT [facility] Last Admin: 08/09/24 06:48 Dose: Not Given Documented By: NAHID Non-Admin Reason: IV Running Labs 08/09/24 11:08 08/09/24 11:08 Labs: Laboratory Results - last 24 hr 08/08/24 08/08/24 08/09/24 23:09 23:30 00:41 MCV 83.7 MCH 29.3 MCHC 35.0 RDW 14.2 Plt Count 219 MPV 10.4 Immature Gran % (Auto) 0.5 H Neut % (Auto) 89.0 H Lymph % (Auto) 4.9 L [place] % (Auto) 5.4 Eos % (Auto) 0.1 Baso % (Auto) 0.1 Lymph # (Auto) 0.8 L [place] # (Auto) 0.9 Eos # (Auto) 0.0 Baso # (Auto) 0.0 Abs Immat Gran (auto) 0.08 H Absolute Neuts (auto) 15.4 H Absolute Nucleated RBC 0.000 Nucleated RBC % (auto) 0.0 PT 14.6 H INR 1.3 H APTT 28.5 Anion Gap 18 Estim Creat Clear Calc 31.0 Estimated GFR 26 POC Glucose 408 H* Random Glucose 424 H* Fasting Glucose Lactic Acid Calcium 8.9 Total Bilirubin 7.2 H Direct Bilirubin AST 131 H ALT 249 H Alkaline Phosphatase 253 H Ammonia 27 Total Protein 7.4 Albumin 3.6 Triglycerides 121 Lipase 644 H Urine Color Urine Appearance Urine pH Ur Specific [place] Urine Protein Urine Glucose (UA) Urine Ketones Urine Blood Urine Nitrite Ur Leukocyte Esterase Urine RBC Urine WBC Ur Squamous Epith Cells Urine Bacteria Hyaline Casts Granular Casts Influenza Type A (PCR) NEGATIVE Influenza Type B (PCR) NEGATIVE RSV RNA Qual (PCR) NEGATIVE SARS-CoV-2 RNA (RT-PCR) NEGATIVE 0208/09/24 08/09/24 01:16 01:20 02:09 MCV MCH MCHC RDW Plt Count MPV Immature Gran % (Auto) Neut % (Auto) Lymph % (Auto) [place] % (Auto) Eos % (Auto) Baso % (Auto) Lymph # (Auto) [place] # (Auto) Eos # (Auto) Baso # (Auto) Abs Immat Gran (auto) Absolute Neuts (auto) Absolute Nucleated RBC Nucleated RBC % (auto) PT INR APTT Anion Gap Estim Creat Clear Calc Estimated GFR POC Glucose 379 H* Random Glucose Fasting Glucose Lactic Acid 1.8 Calcium Total Bilirubin Direct Bilirubin AST ALT Alkaline Phosphatase Ammonia Total Protein Albumin Triglycerides Lipase Urine Color Dark Yellow Urine Appearance Turbid Urine pH 5.0 Ur Specific [place] 1.020 Urine Protein 30 (1+) H Urine Glucose (UA) 250 H Urine Ketones Negative Urine Blood Small (1+) H Urine Nitrite Positive H Ur Leukocyte Esterase Small (1+) H Urine RBC 3-5 H Urine WBC 0-5 Ur Squamous Epith Cells 11-20 Urine Bacteria 1+ Hyaline Casts 6-10 Granular Casts Present Influenza Type A (PCR) Influenza Type B (PCR) RSV RNA Qual (PCR) SARS-CoV-2 RNA (RT-PCR) 08/09/24 08/09/24 08/09/24 03:09 04:09 05:22 MCV 84.7 MCH 28.9 MCHC 34.2 RDW 14.2 Plt Count 214 MPV 10.6 Immature Gran % (Auto) 0.3 Neut % (Auto) 86.1 H Lymph % (Auto) 8.2 L [place] % (Auto) 5.2 Eos % (Auto) 0.1 Baso % (Auto) 0.1 Lymph # (Auto) 1.2 [place] # (Auto) 0.8 Eos # (Auto) 0.0 Baso # (Auto) 0.0 Abs Immat Gran (auto) 0.05 H Absolute Neuts (auto) 12.3 H Absolute Nucleated RBC 0.000 Nucleated RBC % (auto) 0.0 PT INR APTT Anion Gap 16 Estim Creat Clear Calc 34.9 Estimated GFR 30 POC Glucose 270 H 204 H Random Glucose 147 H Fasting Glucose Lactic Acid Calcium 8.3 L D Total Bilirubin 6.4 H Direct Bilirubin 5.3 H AST 130 H ALT 216 H Alkaline Phosphatase 240 H Ammonia Total Protein 6.9 Albumin 3.3 L Triglycerides Lipase 432 H Urine Color Urine Appearance Urine pH Ur Specific [place] Urine Protein Urine Glucose (UA) Urine Ketones Urine Blood Urine Nitrite Ur Leukocyte Esterase Urine RBC Urine WBC Ur Squamous Epith Cells Urine Bacteria Hyaline Casts Granular Casts Influenza Type A (PCR) Influenza Type B (PCR) RSV RNA Qual (PCR) SARS-CoV-2 RNA (RT-PCR) 08/09/24 08/09/24 10:21 11:08 MCV 84.8 MCH 29.1 MCHC 34.3 RDW 14.1 Plt Count 198 MPV 10.0 Immature Gran % (Auto) 0.2 Neut % (Auto) 85.3 H Lymph % (Auto) 8.3 L [place] % (Auto) 5.9 Eos % (Auto) 0.0 Baso % (Auto) 0.3 Lymph # (Auto) 0.9 L [place] # (Auto) 0.7 Eos # (Auto) 0.0 Baso # (Auto) 0.0 Abs Immat Gran (auto) 0.02 Absolute Neuts (auto) 9.7 H Absolute Nucleated RBC 0.000 Nucleated RBC % (auto) 0.0 PT INR APTT Anion Gap 13 Estim Creat Clear Calc 40.0 Estimated GFR 35 POC Glucose 124 H Random Glucose Fasting Glucose 134 H Lactic Acid Calcium 8.2 L Total Bilirubin 5.9 H Direct Bilirubin 4.9 H AST 135 H ALT 198 H Alkaline Phosphatase 233 H Ammonia Total Protein 6.4 L Albumin 3.1 L Triglycerides Lipase Urine Color Urine Appearance Urine pH Ur Specific [place] Urine Protein Urine Glucose (UA) Urine Ketones Urine Blood Urine Nitrite Ur Leukocyte Esterase Urine RBC Urine WBC Ur Squamous Epith Cells Urine Bacteria Hyaline Casts Granular Casts Influenza Type A (PCR) Influenza Type B (PCR) RSV RNA Qual (PCR) SARS-CoV-2 RNA (RT-PCR) Assessment and Plan (1) Diabetes mellitus, insulin dependent (IDDM), controlled: Status: Acute (2) Acute kidney injury: Status: Acute Plan This has a 63-year-old female with pertinent history of insulin-dependent diabetes mellitus, mixed hyperlipidemia, tobacco use disorder, hypertension, peripheral vascular disease who presents to the emergency department for evaluation of abdominal pain, nausea and vomiting and found to have acute pancreatitis Acute pancreatitis, no h/o alcohol use, no high TG, lipase coming down empiric Abx, IVF, GI consult, Gi consult pending. MRCP confirms pancreatitis with Pseudocyst, no mention of stone. start clear liquid diet Insulin-dependent diabetes mellitus with hyperglycemia hold metformin, sliding scale, lantus at half home dose Pseudohyponatremia due to hyperglycemia, resolved Acute kidney injury stage, d/t dehydration, improving continue ivf and follow bmp Tobacco use disorder: Nicotine patch while in the hospital. Hypertension: Hold lisinopril in the setting of MONIUQE and rare cases of MIRTHA induced pancreatitis Mixed hyperlipidemia: Hold rosuvastatin in the setting of elevated transaminases DVT prophylaxis: Lovenox Full code Admit as inpatient and will require two night minimum hospital stay for IV crystalloid resuscitation, IV opioids for analgesia, IV antibiotics, monitoring of kidney function (as above), which is not possible in a lesser acute setting. Specialist consult pending Quality Stroke Does the patient have a stroke diagnosis?: No VTE Prior VTE?: No VTE Risk Level:: Medical - moderate - high VTE Device Contraindication: Treatment Not Indicated VTE Drug Contraindication: N/A - Med Ordered
--- NOTE | 2024-08-09 15:32 | PC.NURSE ---
report taken from previous rn pt is resting comfortably, tolerating ice chips. pt is awating a bed assignment, lr and abx are infusing. this rn will continue to monitor. a poc is due at 1600.
[2024-08-09 16:31] LABS: Glucose, Whole Blood 129 mg/dL (60-115)
--- NOTE | 2024-08-09 19:01 | PC.NURSE ---
assumed care of the pt at 1900. report received from Jason SALCEDO.
--- NOTE | 2024-08-09 19:19 | PM.EVENT ---
Event Note Date of Service: 08/09/24 Event Note: GI Consult-Full note dictated-History from patient and EMR Imp: Acute pancreatitis, probably biliary in etiology. Based on her MRCP being negative for a CBD stone and her clinical course showing improvement in her pain and labs, she seems to have passed a CBD stone. However, given the significant dilatation of the bile duct, smaller stones in the duct may not be seen. Rec: Continue supportive care, close follow up of labs, and advance diet slowly as tolerated. If things continue to improve I would recommend a F/U MRI with MRCP as an outpatient within the next 1-2 months to R/O any underlying mass or a CBD stone. However, if things worsen regarding her abdominal pain or labs while still here as an inpatient we would want to repeat a CT to inspect for any necrotizing pancreatitis and/or a MRCP to reinspect for a stone in the CBD and proceed with an ERCP if need be. D/W patient in detail and she is comfortable with this plan. Thanks Time Spent With Patient Time: Total time managing care of this patient today ____ minutes.
--- NOTE | 2024-08-09 19:50 | MHC.EDTECH ---
This tech took over care of pt at 1900,rounded and introduced self to pt,vitals taken,patient got up to commode with minimal assist,pt urinated, patient appears comfortable,call ibarra in reach
[2024-08-09 21:18] LABS: Glucose, Whole Blood 119 mg/dL (60-115)
[2024-08-10] MEDS: Morphine Sulfate 4 MG/ML CARTRIDGE IVPUSH ×2 (00:27→22:06)
--- NOTE | 2024-08-10 02:06 | CONS_ITS ---
DATE OF SERVICE: 08/09/2024 REASON FOR CONSULTATION: Abdominal pain and pancreatitis. HISTORY OF PRESENT ILLNESS: This has been obtained from the patient and the medical record. The patient is a 63-year-old female who was in her usual state of health up until about 2 days prior to admission. She began having some symptoms of which she thought was viral gastroenteritis. This was associated with some vomiting and small amounts of diarrhea. She did not notice any hematemesis nor coffee-ground emesis. She denies any hematochezia nor melena. However, as this progressed, she develops significant upper abdominal and right-sided abdominal pain. Due to worsening pain and weakness, she came to the ER for evaluation. She was found to have pancreatitis based on her laboratories and was admitted. The patient denies any previous history of pancreatitis in herself or family members. She does not use any alcohol whatsoever and has not been using any new medication. The patient is status post open cholecyst[place] [address] Kendall. This was not associated with any jaundice nor need for ERCP at that time. Since admission here, she does report that she has been gradually improving and her abdominal pain is significantly improved, although still present to some degree. She has had no further vomiting or diarrhea. She actually reports that she is thirsty and hungry. She has been afebrile here. Vital signs have been otherwise stable other than a slight tachycardia. MEDICATIONS: Medications at home included insulin, lisinopril, metformin, rosuvastatin, Januvia. Medications here include acetaminophen, insulin, melatonin, morphine p.r.n., Zofran p.r.n., and IV Zosyn. PAST MEDICAL HISTORY: Insulin-dependent diabetes mellitus. Hyperlipidemia. Diabetic retinopathy. Hypertension. She denies history of MD, stroke, lung disease, nor renal disease. PAST SURGICAL HISTORY: Includes open cholecystectomy, appendectomy, C-sections, tubal ligation, removal of the portion of the right great toe due to osteomyelitis, cataracts, and laser eye surgery for retinopathy. SOCIAL HISTORY: She does smoke. She is , although reports that her is going for treatments for a bile duct cancer. She does not use any alcohol. FAMILY HISTORY: Noncontributory. REVIEW OF SYSTEMS: CONSTITUTIONAL: Prior to becoming ill 48 hours ago, she had been feeling well. SKIN: Without rash. No pruritus. CARDIAC: No chest pain. PULMONARY: No cough or hemoptysis. GI: As above. URINARY: No dysuria. No hematuria. NEUROLOGIC: No headache or seizures. PHYSICAL EXAMINATION: GENERAL: Presently, she appears comfortable, lying in bed, in no distress. VITAL SIGNS: As above. SKIN: Warm and dry. No obvious jaundice. Slightly icteric sclerae. Moist mucous membranes. NECK: Supple without lymphadenopathy. CHEST: Clear. CARDIAC: Normal S1, S2. ABDOMEN: Soft. Normal bowel sounds. Nondistended. There is some mild tenderness in the epigastric and right upper quadrant area without mass, rebound, or guarding. EXTREMITIES: Without edema. LABORATORY DATA: Initial white count was 17,300 and has come down to 11,400. Hemoglobin 11.7, platelets 198,000. PT 14.6 with INR 1.3. Normal electrolytes. Initial BUN was 71 and today is 70. Initial creatinine was 1.9 and today is 1.5. Initial bilirubin was 7.2 and it has come down to 5.9. AST has gone from 131 to 135. ALT has gone from 249 to 198. Alkaline phosphatase has climbed from 253 to 233. Lipase is 644 and has come down to 432. She did have a CT scan of the abdomen and pelvis describing biliary ductal dilatation both in the intrahepatic and extrahepatic bile ducts. There were changes around the pancreas consistent with pancreatitis with stranding and peripancreatic fluid. She had a followup MRCP, describing the dilated bile ducts, but without any sign of choledocholithiasis. Again, noted changes around the pancreas consistent with pancreatitis with edema and fluid. IMPRESSION: Given the patient's clinical history, this seems most consistent with that of a biliary source of pancreatitis, i.e., choledocholithiasis. She may very well have passed a common duct stone given her improvement clinically in regard to her pain, as well as improving laboratories. However, given the significant dilatation of the bile duct this does not exclude the possibility of some smaller stones that are simply are not visualized on the imaging studies. As such, she will have to be followed closely in regard to her laboratories and to be sure things do not worsen that could indicate the need for an ERCP. At this point, I will continue supportive care, antibiotics, and close followup of her laboratories. I would advance her diet slowly as tolerated based on her labs and abdominal pain. If she continues to improve nicely, then I do not think she will need an ERCP as an inpatient and I would recommend obtaining a followup MRI with MRCP as an outpatient in the next month or 2 to again re-evaluate the bile duct and to be sure there is no underlying pancreatic mass as the cause of her presentation today. On the other hand, if she develops worsening pain and/or laboratories while here in the hospital, I would recommend a CT scan with IV contrast to inspect for any necrotizing pancreatitis and a followup MRCP to re-evaluate for a common duct stone that might require ERCP while she is here in the hospital. This has been discussed with her in detail and she is comfortable with that plan. Thank your for the consultation. MD JESSICA Pino/NO / [phone] MTDD
[2024-08-10 03:28] VITALS: BP 111/54; PULSE 88; RESP 14; TEMP 36.2; O2SAT 93
[2024-08-10] MEDS: Piperacillin Sodium/Tazobactam 4.5 GM in 0.9 % Sodium Chloride 100 ML IV ×3 (03:32→19:33)
[2024-08-10 03:43] LABS: Glucose, Whole Blood 102 mg/dL (60-115)
[2024-08-10] MEDS: Lactated Ringers 1,000 ML 125 ML IVCONT ×3 (05:12→22:07)
[2024-08-10 06:11] LABS: Hematocrit 30.6 % (37.0-47.0); Hemoglobin 10.5 g/dl (12.0-16.0); Mean Corpuscular HGB Conc 34.3 g/dl (31.0-35.0); Mean Corpuscular Hemoglobin 28.9 pg (27.0-33.0); Mean Corpuscular Volume 84.3 fL (80.0-98.0); Mean Platelet Volume 9.9 fL (9.4-12.3); Platelet Count 188 X10*3/uL (160-400); Red Blood Count 3.63 X10*6/uL (4.20-5.50); White Blood Count 9.4 X10*3/uL (4.8-10.8)
[2024-08-10 06:26] LABS: Alanine Aminotransferase 171 U/L (0-31); Albumin Level 2.8 g/dL (3.5-5.0); Alkaline Phosphatase 274 U/L (39-117); Anion Gap 14 (12-20); Aspartate Amino Transferase 134 U/L (5-31); Bilirubin Direct 3.7 mg/dL (0.0-0.5); Bilirubin Total 4.4 mg/dL (0.0-1.0); Blood Urea Nitrogen 45 mg/dL (9-16); Carbon Dioxide 23 mmol/L (22-29); Chloride 105 mmol/L (96-108); Creatinine Clr Calc Pharmacy 49.6; Estimated Glomerular Filt Rate 45; Glucose Random 99 mg/dL (60-115); Lipase 83 U/L (8-78); Potassium 3.7 mmol/L (3.3-5.1); Sodium 138 mmol/L (135-145)
[2024-08-10 07:00] VITALS: BP 122/56; PULSE 87; RESP 17; TEMP 36.8; O2SAT 95
[2024-08-10 07:12] LABS: Glucose, Whole Blood 104 mg/dL (60-115)
[2024-08-10] MEDS: SITagliptin Phosphate 100 MG TABLET PO (08:59)
--- NOTE | 2024-08-10 09:24 | P.PNIM_ITS ---
Subjective Subjective Date of Service: 08/10/24 Interval History: Seen and examined, abdominal pain is better. wants to try liquid diet Physical Exam 2 Vital Signs: Vital Signs: Last Vital Signs Temp 98.2 F 08/10/24 07:00 Pulse 87 08/10/24 07:00 Resp 17 08/10/24 07:00 BP 122/56 L 08/10/24 07:00 Pulse Ox 95 08/10/24 07:00 O2 Del Method Room Air 08/10/24 07:00 BMI result Body Mass Index 30.0 General: AO X 3, no acute distress Resp: CTA bilateral CVS: S1,S2,RRR GI: +BS, mild epig tenderness, no distention Skin: No rash Neuro: motor grossly intact Psych: appropriate affect Objective Data Active Medications Acetaminophen (Acetaminophen 325 Mg Tablet) 650 mg PO Q6H PRN PRN Reason: Pain, Mild 1-3,fever,headache Calcium Carbonate (Calcium Carbonate 750 Mg Tab.Chew) 750 mg PO Q4H PRN PRN Reason: Heartburn Dextrose (Dextrose 50 % 25 Gm/50 Ml Syringe) 25 gm IVPUSH Q15M PRN; Protocol PRN Reason: per Hypoglycemia Standing Ord. Glucose (Glucose Gel 15 Gm Gel..Gram.) 15 gm PO Q15M PRN; Protocol PRN Reason: per Hypoglycemia Standing Ord. Lactated Ringer's (Lr) 1,000 mls @ 125 mls/hr IVCONT .Q8H [facility] Last Admin: 08/10/24 05:12 Dose: 125 mls/hr Documented By: DEBRA Piperacillin Sod/Tazobactam (Sod 4.5 gm/ Sodium Chloride) 100 mls @ 200 mls/hr IV Q8H [facility] Last Infusion: 08/10/24 04:15 Dose: Infused Documented By: DEBRA Insulin Glargine (Insulin Glargine,Hum.Rec.Anlog 100 Unit/Ml 10 Ml Vial) 15 unit SUBCUT BEDTIME [facility] Last Admin: 08/09/24 21:21 Dose: Not Given Documented By: DEBRA Non-Admin Reason: NPO Insulin Human Lispro (Insulin Lispro 100 Unit/Ml 3 Ml Vial) 0 unit SUBCUT Q6H [facility]; Protocol Last Admin: 08/10/24 03:49 Dose: Not Given Documented By: DEBRA Non-Admin Reason: No Insulin Coverage Magnesium Hydroxide (Milk Of Magnesia 30 Ml Oral.Susp) 30 ml PO DAILY PRN PRN Reason: Constipation Melatonin (Melatonin 3 Mg Tablet) 6 mg PO BEDTIME PRN PRN Reason: Insomnia Morphine Sulfate (Morphine Sulfate 4 Mg/Ml Cartridge) 4 mg IVPUSH Q4H PRN; Protocol PRN Reason: Pain, Severe (Pain Scale 7-10) Last Admin: 08/10/24 00:27 Dose: 4 mg Documented By: DEBRA Ondansetron HCl (Ondansetron Hcl 4 Mg/2 Ml Vial) 4 mg IVPUSH Q8H PRN PRN Reason: Nausea and Vomiting Sitagliptin Phosphate (Sitagliptin Phosphate 100 Mg Tablet) 100 mg PO DAILY [facility] Last Admin: 08/10/24 08:59 Dose: 100 mg Documented By: LYLE Sodium Chloride (0.9 % Sodium Chloride Flush 3 Ml Syringe) 3 ml IVFLUSH QSHIFT [facility] Last Admin: 08/10/24 08:58 Dose: Not Given Documented By: LYLE Non-Admin Reason: IV Running Labs 08/10/24 05:45 08/10/24 05:45 Labs: Laboratory Results - last 24 hr 08/09/24 08/09/24 08/09/24 10:21 11:08 16:28 MCV 84.8 MCH 29.1 MCHC 34.3 RDW 14.1 Plt Count 198 MPV 10.0 Immature Gran % (Auto) 0.2 Neut % (Auto) 85.3 H Lymph % (Auto) 8.3 L [place] % (Auto) 5.9 Eos % (Auto) 0.0 Baso % (Auto) 0.3 Lymph # (Auto) 0.9 L [place] # (Auto) 0.7 Eos # (Auto) 0.0 Baso # (Auto) 0.0 Abs Immat Gran (auto) 0.02 Absolute Neuts (auto) 9.7 H Absolute Nucleated RBC 0.000 Nucleated RBC % (auto) 0.0 Anion Gap 13 Estim Creat Clear Calc 40.0 Estimated GFR 35 POC Glucose 124 H 129 H Random Glucose Fasting Glucose 134 H Calcium 8.2 L Total Bilirubin 5.9 H Direct Bilirubin 4.9 H AST 135 H ALT 198 H Alkaline Phosphatase 233 H Total Protein 6.4 L Albumin 3.1 L Lipase 08/09/24 08/10/24 08/10/24 21:08 03:37 05:45 MCV 84.3 MCH 28.9 MCHC 34.3 RDW 14.0 Plt Count 188 MPV 9.9 Immature Gran % (Auto) Neut % (Auto) Lymph % (Auto) [place] % (Auto) Eos % (Auto) Baso % (Auto) Lymph # (Auto) [place] # (Auto) Eos # (Auto) Baso # (Auto) Abs Immat Gran (auto) Absolute Neuts (auto) Absolute Nucleated RBC 0.000 Nucleated RBC % (auto) 0.0 Anion Gap 14 Estim Creat Clear Calc 49.6 Estimated GFR 45 POC Glucose 119 H 102 Random Glucose 99 Fasting Glucose Calcium 8.0 L Total Bilirubin 4.4 H Direct Bilirubin 3.7 H AST 134 H ALT 171 H Alkaline Phosphatase 274 H Total Protein 6.0 L Albumin 2.8 L Lipase 83 H 08/10/24 07:02 MCV MCH MCHC RDW Plt Count MPV Immature Gran % (Auto) Neut % (Auto) Lymph % (Auto) [place] % (Auto) Eos % (Auto) Baso % (Auto) Lymph # (Auto) [place] # (Auto) Eos # (Auto) Baso # (Auto) Abs Immat Gran (auto) Absolute Neuts (auto) Absolute Nucleated RBC Nucleated RBC % (auto) Anion Gap Estim Creat Clear Calc Estimated GFR POC Glucose 104 Random Glucose Fasting Glucose Calcium Total Bilirubin Direct Bilirubin AST ALT Alkaline Phosphatase Total Protein Albumin Lipase Microbiology Microbiology Results: Microbiology 08/09/24 02:09 Blood Culture - Preliminary Blood - Venous No growth after 24 hours. 08/09/24 02:08 Blood Culture - Preliminary Blood - Venous No growth after 24 hours. Assessment and Plan (1) Diabetes mellitus, insulin dependent (IDDM), controlled: Status: Acute (2) Acute kidney injury: Status: Acute Plan 63-year-old female with pertinent history of insulin-dependent diabetes mellitus, mixed hyperlipidemia, tobacco use disorder, hypertension, peripheral vascular disease who presents to the emergency department for evaluation of abdominal pain, nausea and vomiting and found to have acute pancreatitis Acute pancreatitis, no h/o alcohol use, no high TG, lipase coming down empiric Abx, IVF, GI consult noted, MRCP confirms pancreatitis with Pseudocyst, no mention of stone. start clear liquid diet Insulin-dependent diabetes mellitus with hyperglycemia hold metformin, sliding scale, lantus at reduce dose 15 Pseudohyponatremia due to hyperglycemia, resolved Acute kidney injury stage, d/t dehydration, resolving, continue ivf and follow bmp Tobacco use disorder: Nicotine patch while in the hospital. Hypertension: Hold lisinopril in the setting of MONIQUE and rare cases of MIRTHA induced pancreatitis Mixed hyperlipidemia: Hold rosuvastatin in the setting of elevated transaminases DVT prophylaxis: Lovenox Full code need for inpt: severe pancreatitis with pseudocysts Quality Stroke Does the patient have a stroke diagnosis?: No VTE Prior VTE?: No VTE Risk Level:: Medical - moderate - high VTE Device Contraindication: Treatment Not Indicated VTE Drug Contraindication: N/A - Med Ordered
[2024-08-10] MEDS: Acetaminophen 325 MG TABLET 650 MG PO ×2 (09:50→16:10)
[2024-08-10 10:03] LABS: Glucose, Whole Blood 168 mg/dL (60-115)
[2024-08-10] MEDS: Insulin Lispro 100 UNIT/ML 3 ML VIAL SUBCUT ×3 (10:16→22:04)
[2024-08-10 11:16] VITALS: BP 112/57; PULSE 84; RESP 16; TEMP 36.5; O2SAT 93
[2024-08-10] MEDS: 0.9 % Sodium Chloride Flush 3 ML SYRINGE IVFLUSH (14:21)
[2024-08-10 15:53] VITALS: BP 128/59; PULSE 85; RESP 18; TEMP 36.5; O2SAT 92
[2024-08-10 16:01] LABS: Glucose, Whole Blood 236 mg/dL (60-115)
[2024-08-10 19:17] VITALS: BP 130/60; PULSE 78; RESP 18; TEMP 37; O2SAT 94
[2024-08-10 21:51] LABS: Glucose, Whole Blood 197 mg/dL (60-115)
[2024-08-10] MEDS: Insulin Glargine,Hum.rec.anlog 100 UNIT/ML 10 ML VIAL 15 UNIT SUBCUT (22:05)
[2024-08-10 23:27] VITALS: BP 132/59; PULSE 79; RESP 16; TEMP 36.7; O2SAT 93
[2024-08-11 02:55] VITALS: BP 163/74; PULSE 77; RESP 18; TEMP 36.3; O2SAT 93
[2024-08-11] MEDS: Morphine Sulfate 4 MG/ML CARTRIDGE IVPUSH ×3 (03:07→23:45)
[2024-08-11] MEDS: Piperacillin Sodium/Tazobactam 4.5 GM in 0.9 % Sodium Chloride 100 ML IV ×3 (03:07→20:51)
[2024-08-11 03:09] LABS: Glucose, Whole Blood 195 mg/dL (60-115)
[2024-08-11] MEDS: Insulin Lispro 100 UNIT/ML 3 ML VIAL SUBCUT ×2 (03:18→20:51)
[2024-08-11 06:15] LABS: MANUAL DIFF FLAG NO
[2024-08-11 06:25] LABS: Basophils Percent Auto 0.3 % (0-2); Eosinophils Percent Auto 0.1 % (0-4); Hemoglobin 9.7 g/dl (12.0-16.0); Imm Gran Abs Auto 0.08 X10*3/uL (0.00-0.03); Imm Gran Pct Auto 0.9 % (0.0-0.4); Lymphocytes Absolute Auto 1.1 X10*3/uL (1.2-4.9); Lymphocytes Percent Auto 13.1 % (20-40); Mean Corpuscular HGB Conc 34.6 g/dl (31.0-35.0); Mean Corpuscular Hemoglobin 29.2 pg (27.0-33.0); Mean Corpuscular Volume 84.3 fL (80.0-98.0); Mean Platelet Volume 9.9 fL (9.4-12.3); Monocytes Absolute Auto 0.8 X10*3/uL (0.1-1.2); Monocytes Percent Auto 8.7 % (2-11); Neutrophils Absolute Auto 6.6 x10*3/uL (2.0-8.3); Neutrophils Percent Auto 76.9 % (45-73); Platelet Count 196 X10*3/uL (160-400); Red Blood Count 3.32 X10*6/uL (4.20-5.50); White Blood Count 8.6 X10*3/uL (4.8-10.8)
[2024-08-11 06:42] LABS: Alanine Aminotransferase 100 U/L (0-31); Albumin Level 2.6 g/dL (3.5-5.0); Alkaline Phosphatase 198 U/L (39-117); Anion Gap 11 (12-20); Aspartate Amino Transferase 37 U/L (5-31); Bilirubin Direct 1.1 mg/dL (0.0-0.5); Bilirubin Total 1.6 mg/dL (0.0-1.0); Blood Urea Nitrogen 27 mg/dL (9-16); Carbon Dioxide 26 mmol/L (22-29); Chloride 103 mmol/L (96-108); Creatinine Clr Calc Pharmacy 67.4; Estimated Glomerular Filt Rate > 60; Glucose Fasting 167 mg/dL (60-99); Lipase 24 U/L (8-78); Potassium 3.9 mmol/L (3.3-5.1); Sodium 136 mmol/L (135-145); Total Protein 5.8 g/dL (6.5-8.0)
[2024-08-11] MEDS: Lactated Ringers 1,000 ML 125 ML IVCONT ×3 (06:51→23:45)
[2024-08-11 07:07] VITALS: BP 148/68; PULSE 73; RESP 16; TEMP 36.9; O2SAT 93
[2024-08-11] MEDS: SITagliptin Phosphate 100 MG TABLET PO (09:16)
[2024-08-11 09:24] LABS: Glucose, Whole Blood 139 mg/dL (60-115)
--- NOTE | 2024-08-11 09:32 | HO.PM.IMPN ---
Subjective Subjective Date of Service: 08/11/24 Interval History: f/u on acute pancreatitis Lipase is normal but she's reporting more pain Physical Exam Vital Signs: Vital Signs: Last Vital Signs Temp 98.4 F 08/11/24 07:07 Pulse 73 08/11/24 07:07 Resp 16 08/11/24 07:07 BP 148/68 H 08/11/24 07:07 Pulse Ox 93 08/11/24 07:07 O2 Del Method Room Air 08/11/24 07:07 BMI result Body Mass Index 30.0 General: AO X 3, no acute distress Resp: CTA bilateral CVS: S1,S2,RRR GI: +BS, mild epig tenderness, no distention Skin: No rash Neuro: motor grossly intact Psych: appropriate affect Objective Data Active Medications Acetaminophen (Acetaminophen 325 Mg Tablet) 650 mg PO Q6H PRN PRN Reason: Pain, Mild 1-3,fever,headache Last Admin: 08/10/24 16:10 Dose: 650 mg Documented By: TSERING Calcium Carbonate (Calcium Carbonate 750 Mg Tab.Chew) 750 mg PO Q4H PRN PRN Reason: Heartburn Dextrose (Dextrose 50 % 25 Gm/50 Ml Syringe) 25 gm IVPUSH Q15M PRN; Protocol PRN Reason: per Hypoglycemia Standing Ord. Glucose (Glucose Gel 15 Gm Gel..Gram.) 15 gm PO Q15M PRN; Protocol PRN Reason: per Hypoglycemia Standing Ord. Lactated Ringer's (Lr) 1,000 mls @ 125 mls/hr IVCONT .Q8H [facility] Last Admin: 08/11/24 06:51 Dose: 125 mls/hr Documented By: DEBRA Piperacillin Sod/Tazobactam (Sod 4.5 gm/ Sodium Chloride) 100 mls @ 200 mls/hr IV Q8H [facility] Last Infusion: 08/11/24 03:38 Dose: Infused Documented By: DEBRA Insulin Glargine (Insulin Glargine,Hum.Rec.Anlog 100 Unit/Ml 10 Ml Vial) 15 unit SUBCUT BEDTIME [facility] Last Admin: 08/10/24 22:05 Dose: 15 unit Documented By: DEBRA Insulin Human Lispro (Insulin Lispro 100 Unit/Ml 3 Ml Vial) 0 unit SUBCUT Q6H [facility]; Protocol Last Admin: 08/11/24 09:15 Dose: Not Given Documented By: TSERING Non-Admin Reason: No Insulin Coverage Magnesium Hydroxide (Milk Of Magnesia 30 Ml Oral.Susp) 30 ml PO DAILY PRN PRN Reason: Constipation Melatonin (Melatonin 3 Mg Tablet) 6 mg PO BEDTIME PRN PRN Reason: Insomnia Morphine Sulfate (Morphine Sulfate 4 Mg/Ml Cartridge) 4 mg IVPUSH Q4H PRN; Protocol PRN Reason: Pain, Severe (Pain Scale 7-10) Last Admin: 08/11/24 09:16 Dose: 4 mg Documented By: TSERING Ondansetron HCl (Ondansetron Hcl 4 Mg/2 Ml Vial) 4 mg IVPUSH Q8H PRN PRN Reason: Nausea and Vomiting Sitagliptin Phosphate (Sitagliptin Phosphate 100 Mg Tablet) 100 mg PO DAILY [facility] Last Admin: 08/11/24 09:16 Dose: 100 mg Documented By: TSEIRNG Sodium Chloride (0.9 % Sodium Chloride Flush 3 Ml Syringe) 3 ml IVFLUSH QSHIFT [facility] Last Admin: 08/11/24 09:06 Dose: Not Given Documented By: TSERING Non-Admin Reason: IV Running Labs 08/11/24 06:04 08/11/24 06:04 Labs: Laboratory Results - last 24 hr 08/10/24 08/10/24 08/10/24 09:58 15:56 21:47 MCV MCH MCHC RDW Plt Count MPV Immature Gran % (Auto) Neut % (Auto) Lymph % (Auto) [place] % (Auto) Eos % (Auto) Baso % (Auto) Lymph # (Auto) [place] # (Auto) Eos # (Auto) Baso # (Auto) Abs Immat Gran (auto) Absolute Neuts (auto) Absolute Nucleated RBC Nucleated RBC % (auto) Anion Gap Estim Creat Clear Calc Estimated GFR POC Glucose 168 H 236 H 197 H Fasting Glucose Calcium Total Bilirubin Direct Bilirubin AST ALT Alkaline Phosphatase Total Protein Albumin Lipase 08/11/24 08/11/24 08/11/24 03:04 06:04 09:14 MCV 84.3 MCH 29.2 MCHC 34.6 RDW 14.0 Plt Count 196 MPV 9.9 Immature Gran % (Auto) 0.9 H Neut % (Auto) 76.9 H Lymph % (Auto) 13.1 L [place] % (Auto) 8.7 Eos % (Auto) 0.1 Baso % (Auto) 0.3 Lymph # (Auto) 1.1 L [place] # (Auto) 0.8 Eos # (Auto) 0.0 Baso # (Auto) 0.0 Abs Immat Gran (auto) 0.08 H Absolute Neuts (auto) 6.6 Absolute Nucleated RBC 0.000 Nucleated RBC % (auto) 0.0 Anion Gap 11 L Estim Creat Clear Calc 67.4 Estimated GFR > 60 POC Glucose 195 H 139 H Fasting Glucose 167 H Calcium 8.0 L Total Bilirubin 1.6 H Direct Bilirubin 1.1 H AST 37 H ALT 100 H Alkaline Phosphatase 198 H Total Protein 5.8 L Albumin 2.6 L Lipase 24 Microbiology Microbiology Results: Microbiology 08/09/24 02:09 Blood Culture - Preliminary Blood - Venous No growth after 48 hours. 08/09/24 02:08 Blood Culture - Preliminary Blood - Venous No growth after 48 hours. 08/09/24 02:09 Urine Culture - Final Urine clean catch - Clean Catch Midstream Assessment and Plan (1) Diabetes mellitus, insulin dependent (IDDM), controlled: Status: Acute (2) Acute kidney injury: Status: Acute Plan 63-year-old female with pertinent history of insulin-dependent diabetes mellitus, mixed hyperlipidemia, tobacco use disorder, hypertension, peripheral vascular disease who presents to the emergency department for evaluation of abdominal pain, nausea and vomiting and found to have acute pancreatitis Acute pancreatitis, no h/o alcohol use, no high TG, lipase is normal but more pain empiric Abx, IVF, GI consult noted, MRCP confirms pancreatitis with Pseudocyst, no mention of stone, start clear liquid diet repeat ct if pain persists, check lipase Insulin-dependent diabetes mellitus with hyperglycemia hold metformin, sliding scale, lantus at reduce dose 15 Pseudohyponatremia due to hyperglycemia, resolved Acute kidney injury stage, d/t dehydration, resolving, continue ivf and follow bmp Tobacco use disorder: Nicotine patch while in the hospital. Hypertension: Hold lisinopril in the setting of MONIQUE and rare cases of MIRTHA induced pancreatitis Mixed hyperlipidemia: Hold rosuvastatin in the setting of elevated transaminases DVT prophylaxis: Lovenox Full code need for inpt: severe pancreatitis with pseudocysts Quality Stroke Does the patient have a stroke diagnosis?: No VTE Prior VTE?: No VTE Risk Level:: Medical - moderate - high VTE Device Contraindication: Treatment Not Indicated VTE Drug Contraindication: N/A - Med Ordered
[2024-08-11 11:53] VITALS: BP 153/72; PULSE 77; RESP 16; TEMP 36.8; O2SAT 93
[2024-08-11 11:53] LABS: Glucose, Whole Blood 125 mg/dL (60-115)
[2024-08-11] MEDS: 0.9 % Sodium Chloride Flush 3 ML SYRINGE IVFLUSH (15:09)
[2024-08-11] MEDS: Milk of Magnesia 30 ML ORAL.SUSP PO (15:13)
[2024-08-11] MEDS: Acetaminophen 325 MG TABLET 650 MG PO (15:13)
[2024-08-11 15:15] VITALS: BP 161/70; PULSE 80; RESP 16; TEMP 37.1; O2SAT 93
[2024-08-11 16:09] LABS: Glucose, Whole Blood 130 mg/dL (60-115)
[2024-08-11 19:06] VITALS: BP 148/67; PULSE 85; RESP 16; TEMP 36.6; O2SAT 92
[2024-08-11 20:21] LABS: Glucose, Whole Blood 214 mg/dL (60-115)
[2024-08-11] MEDS: Insulin Glargine,Hum.rec.anlog 100 UNIT/ML 10 ML VIAL 15 UNIT SUBCUT (20:50)
[2024-08-11 23:12] VITALS: BP 139/64; PULSE 74; RESP 18; TEMP 36.7; O2SAT 92
[2024-08-12 03:26] VITALS: BP 148/68; PULSE 79; RESP 16; TEMP 36.9; O2SAT 93
[2024-08-12] MEDS: Piperacillin Sodium/Tazobactam 4.5 GM in 0.9 % Sodium Chloride 100 ML IV ×3 (03:52→19:53)
[2024-08-12 07:08] VITALS: BP 156/70; PULSE 82; RESP 16; TEMP 37.1; O2SAT 92
[2024-08-12 07:21] LABS: Glucose, Whole Blood 156 mg/dL (60-115)
[2024-08-12] MEDS: Insulin Lispro 100 UNIT/ML 3 ML VIAL SUBCUT ×4 (07:35→20:54)
[2024-08-12] MEDS: SITagliptin Phosphate 100 MG TABLET PO (07:36)
[2024-08-12] MEDS: Lactated Ringers 1,000 ML 125 ML IVCONT (07:39)
[2024-08-12] MEDS: oxyCODONE HCl Immed Release 5 MG TABLET PO ×3 (08:14→20:58)
[2024-08-12 11:11] LABS: Glucose, Whole Blood 194 mg/dL (60-115)
[2024-08-12 11:56] VITALS: BP 176/75; PULSE 82; RESP 16; TEMP 36.9; O2SAT 93
[2024-08-12 12:06] VITALS: BP 166/70
[2024-08-12] MEDS: Acetaminophen 325 MG TABLET 650 MG PO (12:12)
--- NOTE | 2024-08-12 14:35 | P.PNIM_ITS ---
Subjective Subjective Date of Service: 08/12/24 Interval History: f/u on acute pancreatitis Lipase is normal, she is reporting 3/10 pain Physical Exam 2 Vital Signs: Vital Signs: Last Vital Signs Temp 98.5 F 08/12/24 11:56 Pulse 82 08/12/24 11:56 Resp 16 08/12/24 11:56 BP 166/70 H 08/12/24 12:06 Pulse Ox 93 08/12/24 11:56 O2 Del Method Room Air 08/12/24 11:56 BMI result Body Mass Index 30.0 Const: Other: General: AO X 3, no acute distress Resp: CTA bilateral CVS: S1,S2,RRR GI: +BS, NT, no distention Skin: No rash Neuro: motor grossly intact Psych: appropriate affect Objective Data Active Medications Acetaminophen (Acetaminophen 325 Mg Tablet) 650 mg PO Q6H PRN PRN Reason: Pain, Mild 1-3,fever,headache Last Admin: 08/12/24 12:12 Dose: 650 mg Documented By: SANCHEZ Calcium Carbonate (Calcium Carbonate 750 Mg Tab.Chew) 750 mg PO Q4H PRN PRN Reason: Heartburn Dextrose (Dextrose 50 % 25 Gm/50 Ml Syringe) 25 gm IVPUSH Q15M PRN; Protocol PRN Reason: per Hypoglycemia Standing Ord. Glucose (Glucose Gel 15 Gm Gel..Gram.) 15 gm PO Q15M PRN; Protocol PRN Reason: per Hypoglycemia Standing Ord. Piperacillin Sod/Tazobactam (Sod 4.5 gm/ Sodium Chloride) 100 mls @ 200 mls/hr IV Q8H [facility] Last Infusion: 08/12/24 12:46 Dose: Infused Documented By: SANCHEZ Insulin Glargine (Insulin Glargine,Hum.Rec.Anlog 100 Unit/Ml 10 Ml Vial) 15 unit SUBCUT BEDTIME [facility] Last Admin: 08/11/24 20:50 Dose: 15 unit Documented By: DEBRA Insulin Human Lispro (Insulin Lispro 100 Unit/Ml 3 Ml Vial) 0 unit SUBCUT QIDACHS [facility]; Protocol Last Admin: 08/12/24 11:45 Dose: 2 unit Documented By: SANCHEZ Magnesium Hydroxide (Milk Of Magnesia 30 Ml Oral.Susp) 30 ml PO DAILY PRN PRN Reason: Constipation Last Admin: 08/11/24 15:13 Dose: 30 ml Documented By: TSERING Melatonin (Melatonin 3 Mg Tablet) 6 mg PO BEDTIME PRN PRN Reason: Insomnia Ondansetron HCl (Ondansetron Hcl 4 Mg/2 Ml Vial) 4 mg IVPUSH Q8H PRN PRN Reason: Nausea and Vomiting Oxycodone HCl (Oxycodone Hcl Immed Release 5 Mg Tablet) 5 mg PO Q4H PRN PRN Reason: Pain, Severe (Pain Scale 7-10) Last Admin: 08/12/24 12:12 Dose: 5 mg Documented By: SANCHEZ Sitagliptin Phosphate (Sitagliptin Phosphate 100 Mg Tablet) 100 mg PO DAILY [facility] Last Admin: 08/12/24 07:36 Dose: 100 mg Documented By: SANCHEZ Sodium Chloride (0.9 % Sodium Chloride Flush 3 Ml Syringe) 3 ml IVFLUSH QSHIFT [facility] Last Admin: 08/12/24 07:36 Dose: Not Given Documented By: SANCHEZ Non-Admin Reason: IV Running Labs 08/11/24 06:04 08/11/24 06:04 Labs: Laboratory Results - last 24 hr 08/11/24 08/11/24 08/12/24 15:57 20:12 07:11 POC Glucose 130 H 214 H 156 H 08/12/24 11:08 POC Glucose 194 H Assessment and Plan (1) Diabetes mellitus, insulin dependent (IDDM), controlled: Status: Acute (2) Acute kidney injury: Status: Acute Plan 63-year-old female with pertinent history of insulin-dependent diabetes mellitus, mixed hyperlipidemia, tobacco use disorder, hypertension, peripheral vascular disease who presents to the emergency department for evaluation of abdominal pain, nausea and vomiting and found to have acute pancreatitis Acute pancreatitis, no h/o alcohol use, no high TG, lipase is normal but more pain empiric Abx, IVF, GI consult noted, MRCP confirms pancreatitis with Pseudocyst, no mention of stone, start clear liquid diet repeat ct if pain persists, check lipase Insulin-dependent diabetes mellitus with hyperglycemia hold metformin, sliding scale, lantus at reduce dose 15 Pseudohyponatremia due to hyperglycemia, resolved Acute kidney injury stage, d/t dehydration, resolving, continue ivf and follow bmp Tobacco use disorder: Nicotine patch while in the hospital. Hypertension: Hold lisinopril in the setting of MONIQUE and rare cases of MIRTHA induced pancreatitis Mixed hyperlipidemia: Hold rosuvastatin in the setting of elevated transaminases DVT prophylaxis: Lovenox Full code need for inpt: severe pancreatitis with pseudocysts Quality Stroke Does the patient have a stroke diagnosis?: No VTE Prior VTE?: No VTE Risk Level:: Medical - moderate - high VTE Device Contraindication: Treatment Not Indicated VTE Drug Contraindication: N/A - Med Ordered
[2024-08-12 15:10] VITALS: BP 164/72; PULSE 78; RESP 16; TEMP 36.4; O2SAT 95
--- NOTE | 2024-08-12 16:10 | MHC.CM.PN ---
PT NOT YET MEDICALLY CLEARED, DCP HOME NO SERVICES CM FOLLOWING FOR CHANGING DC NEEDS
[2024-08-12 16:31] LABS: Glucose, Whole Blood 177 mg/dL (60-115)
[2024-08-12] MEDS: 0.9 % Sodium Chloride Flush 3 ML SYRINGE IVFLUSH ×2 (16:45→20:59)
[2024-08-12] MEDS: ondansetron HCL 4 MG/2 ML VIAL IVPUSH (17:59)
[2024-08-12 19:16] VITALS: BP 151/65; PULSE 77; RESP 18; TEMP 37.2; O2SAT 92
[2024-08-12 20:45] LABS: Glucose, Whole Blood 178 mg/dL (60-115)
[2024-08-12] MEDS: Insulin Glargine,Hum.rec.anlog 100 UNIT/ML 10 ML VIAL 15 UNIT SUBCUT (20:55)
[2024-08-12] MEDS: Calcium Carbonate 750 MG TAB.CHEW PO (20:58)
[2024-08-13] VITALS: BP 140/66; PULSE 70; RESP 16; TEMP 36.4; O2SAT 93
[2024-08-13] MEDS: Piperacillin Sodium/Tazobactam 4.5 GM in 0.9 % Sodium Chloride 100 ML IV (03:39)
[2024-08-13 03:41] VITALS: BP 169/72; PULSE 77; RESP 16; TEMP 36.4; O2SAT 93
[2024-08-13 07:29] LABS: Glucose, Whole Blood 156 mg/dL (60-115)
[2024-08-13 07:40] VITALS: BP 143/65; PULSE 75; RESP 16; TEMP 37; O2SAT 93
[2024-08-13] MEDS: Insulin Lispro 100 UNIT/ML 3 ML VIAL SUBCUT (09:09)
[2024-08-13] MEDS: SITagliptin Phosphate 100 MG TABLET PO (09:09)
--- NOTE | 2024-08-13 09:09 | PM.DS ---
DS: Providers Provider Date of Service: 08/13/24 Date of admission: 08/09/24 03:15 Date of discharge: 08/13/24 Primary care physician: Tommie Chavis MD Consults: 08/09/24 05:56 Consult to Gastroenterology Routine Consulting Provider: Sujit Lopez Reason for consultation: acute pancreatitis DS: Diagnosis Discharge Diagnosis (1) Diabetes mellitus, insulin dependent (IDDM), controlled: Status: Acute (2) Acute kidney injury: Status: Acute DS: Summary Hospital Course Hospital Course: admission hpi Chief Complaint: Abd pain This has a 63-year-old female with pertinent history of insulin-dependent diabetes mellitus, mixed hyperlipidemia, tobacco use disorder, hypertension, peripheral vascular disease who presents to the emergency department for evaluation of abdominal pain, nausea and vomiting. Patient states her symptoms started 2-3 days prior to presentation. She has been having epigastric pain with intermittent radiation to the back and down to the pubis. Also has associated nonbloody emesis and nausea. Unable to tolerate p.o. intake due to vomiting. Does have a history of cholecystectomy and appendicectomy. No history of similar pain or pancreatitis in the past. Denies alcohol use. Does endorse smoking tobacco. Also noticed watery stool and dark urine. No fever, chills, chest pain, palpitations, shortness of breath. In the emergency department, serum lipase found to be elevated and imaging with acute pancreatitis. Also CBD found to be elevated on imaging. Patient found to have hyperbilirubinemia with elevated transaminases and elevated alkaline phosphatase. Also noted to have MONIQUE with creatinine 1.93 hospital course: 63-year-old female with a history of insulin-dependent diabetes mellitus, mixed hyperlipidemia, hypertension, peripheral vascular disease, and tobacco use disorder, but no history of alcohol consumption, presented to the emergency department with abdominal pain, nausea, and vomiting. She was diagnosed with acute pancreatitis, with CT imaging showing: Peripancreatic stranding and peripancreatic fluid collection, including fluid around the caudate lobe, concerning for pancreatitis. Interval development of marked common bile duct (CBD) dilatation without pancreatic ductal dilatation. Her WBC count was elevated at 17K, but she remained afebrile. Initial lipase was 644. The patient was managed conservatively with intravenous fluids (IVF), opioid analgesia, empiric antibiotics (Zosyn), and NPO status. Gastroenterology recommended an MRCP, which confirmed pancreatitis with pseudocysts but no evidence of CBD stones. Over the course of hospitalization, her lipase levels gradually decreased, with the most recent value at 24 on 08/11, and her WBC count normalized. Her diet was progressively advanced to a regular diet, which she is tolerating well, and she now reports minimal pain. Gastroenterology recommends follow-up MRI with MRCP in 1-2 months to rule out any underlying mass or CBD stones. LFTs were elevated but coming down and recommends repeating on outpatient basis, in the meantime, she advised to stop statin Insulin-dependent diabetes mellitus with hyperglycemia--due resume prior regimen but advise to hold or reduce dose depending on meal sizez Pseudohyponatremia due to hyperglycemia, resolved Acute kidney injury stage, d/t dehydration, resolved with ivf Tobacco use disorder: Cessation advised, treated with NR Hypertension: previously on lisinopril was on hold due to rare case of associated pancreatitis, but not believed to be the case as dilatd CBC, and rapid drop in lipase suggest likely passed stone Mixed hyperlipidemia: Hold rosuvastatin in the setting of elevated transaminases Time Attestation Discharge Coordination Time (in mins): 40 Quality: Safe Use of Opioids Does Pt have an Active Cancer Diagnosis on the Problem List?: No Quality: Stroke Does the patient have a stroke diagnosis?: No Physical Exam Vital Signs: Vital Signs: Last Vital Signs Temp 98.6 F 08/13/24 07:40 Pulse 75 08/13/24 07:40 Resp 16 08/13/24 07:40 BP 143/65 H 08/13/24 07:40 Pulse Ox 93 08/13/24 07:40 O2 Del Method Room Air 08/13/24 07:40 BMI result Body Mass Index 30.0 DS: Data Data Completed and Pending Labs on day of discharge: Laboratory Results - last 24 hr 08/12/24 08/12/24 08/12/24 11:08 16:23 20:40 POC Glucose 194 H 177 H 178 H 08/13/24 07:24 POC Glucose 156 H Preliminary micro results at discharge 08/09/24 02:09 Blood Culture - Preliminary Blood - Venous No growth after 48 hours. 08/09/24 02:08 Blood Culture - Preliminary Blood - Venous No growth after 48 hours. Discharge Plan Discharge Anticipated Discharge Date/Time: 08/13/24 09:28 Patient Disposition: Home, Self-Care Discharge Diagnosis: Acute pancreatitis, obstructive jaundic, MONIUQE Referrals: Tommie Chavis MD [Primary Care Provider] - 1 Week Discharge Medications: Continued metformin 1,000 mg tablet 1,000 mg PO BID Qty: 180 1RF Fiasp FlexTouch U-100 Insulin 100 unit/mL (3 mL) insulin pen 20 unit SUBCUT TID 90 Days Qty: 15 1RF lisinopril 10 mg tablet 10 mg PO BID Qty: 180 0RF Januvia 100 mg tablet 100 mg PO DAILY insulin glargine [Basaglar KwikPen U-100 Insulin] 100 unit/mL (3 mL) insulin pen 50 unit subcut BEDTIME (DME) FreeStyle Nati 2 Sensor Kit See Rx Instructions .Route Qty: 2 11RF Rx Instructions: As directed every 2 weeks (DME) pen needle, diabetic [BD Ultra-Fine Short Pen Needle] 31 gauge x 5/16 needle See Rx Instructions .ROUTE .MEDSUPPLY Qty: 1200 0RF Rx Instructions: once a daily (DME) FreeStyle Nati 2 [place] Misc See Rx Instructions .Route Qty: 1 0RF Rx Instructions: As directed Discontinued rosuvastatin 10 mg tablet 10 mg PO DAILY Qty: 90 1RF Discharge Orders: Discharge Order (Routine); Ordered 08/13/24 Ordered By: Alejandro Loya Diet: Advance to usual diet Activity on Discharge: As tolerated Stand Alone Forms: Patient Portal Discharge page Print Language: Croatian Other Ambulatory Orders: Liver Panel (Routine) Timeframe: 1 Week Facility: [facility] - Location: Laboratory Ordered By: Alejandro Loya MR MRCP (Routine) Timeframe: 1 Month Facility: [facility] - Location: MRI Ordered By: Alejandro Loya Care Plan Goals: Recovering from acute pancreatitis Health Concerns: Acute pancreatitis Elevated LFTs, MONIQUE now resolved Plan of Treatment: You are to have a repeat MRCP in 1-2 months You will have a repeat liver function labs within a week Stopt aking rosuvastatin in the meantime, until liver labs return to baseline Follow-up with your primary care doctor within a week Reduce insulin if you are not eating your usual meal sizes Assessment: see above
[2024-08-13] MEDS: 0.9 % Sodium Chloride Flush 3 ML SYRINGE IVFLUSH (09:14)
== END 2024-08-13 10:15 | disposition home or self-care (01) | DRG 438 ==
LOC: HO.ED 23:42 → HO.EDOVER 08-09 03:21 → HO.S3 08-09 19:24
PROVIDERS: Internal Medicine; Admitting Provider Student in an Organized Health Care Education/Training Program; Emergency Provider Internal Medicine; PCP Internal Medicine; Visit Provider Internal Medicine
DX: K85.90 Acute pancreatitis without necrosis or infection, unspecified (principal); K83.1 Obstruction of bile duct; N17.9 Acute kidney failure, unspecified; K86.3 Pseudocyst of pancreas; E11.42 Type 2 diabetes mellitus with diabetic polyneuropathy; F17.210 Nicotine dependence, cigarettes, uncomplicated; Z71.6 Tobacco abuse counseling; E11.65 Type 2 diabetes mellitus with hyperglycemia; E86.0 Dehydration; E78.2 Mixed hyperlipidemia; E80.6 Other disorders of bilirubin metabolism; E11.51 Type 2 diabetes mellitus with diabetic peripheral angiopathy without gangrene; Z20.822 Contact with and (suspected) exposure to COVID-19; Z79.4 Long term (current) use of insulin; Z79.84 Long term (current) use of oral hypoglycemic drugs; Z79.899 Other long term (current) drug therapy
CPT/HCPCS: 0241U; 36415; 74176; 74181; 80048; 80053; 80076; 81001; 82140; 82248; 82947; 83605; 83690; 84478; 85025; 85027; 85610; 85730; 87040; 87086; 99285; J0696; J2270; J2405; J2543; J7120

== ENCOUNTER → 2024-08-09 00:21 | Outpatient (BNV) | payer MEDICARE, MEDICAID, SELFPAY | PROVIDERS: Emergency Provider Internal Medicine; PCP Internal Medicine; Visit Provider Radiology Diagnostic Radiology | DX: K85.90 Acute pancreatitis without necrosis or infection, unspecified (principal); K80.51 Calculus of bile duct without cholangitis or cholecystitis with obstruction; D35.01 Benign neoplasm of right adrenal gland; D35.02 Benign neoplasm of left adrenal gland | CPT/HCPCS: 74181 ==

== ENCOUNTER → 2024-08-09 03:15 | Outpatient (BNV) | payer MEDICARE, MEDICAID, SELFPAY | PROVIDERS: Admitting Provider Student in an Organized Health Care Education/Training Program; Emergency Provider Internal Medicine; PCP Internal Medicine; Visit Provider Student in an Organized Health Care Education/Training Program | DX: N17.9 Acute kidney failure, unspecified (principal) | CPT/HCPCS: 99223; 99232; 99499 ==

== ENCOUNTER 2024-08-25 09:01 | Outpatient (AMB) | payer MEDICARE, MEDICAID, SELFPAY ==
--- NOTE | 2024-08-25 09:45 | A.OFFPC_ITS ---
Vital Signs 08/25/24 09:47 Height 5 ft 5 in Weight 158 lb 4 oz BMI 26.3 BP 128/62 Blood Pressure Location Rt brachial Position Sitting Pulse 115 H Pulse Source Pulse Oximeter Temp 97.1 F Temp Source Temporal Artery Scan Pulse Oximetry (%) 94 Oxygen Delivery Method Room Air Intake Visit Reasons: TCM [facility] abd pain 08/13/24 Intake Note: Patient is here for hospital discharge and TCM follow up. Patient was discharged from [facility] on 08/13/24. Blood Bank Worker Required: No Green Tire Inspector: Present Accompanied by: Daughter Allergies Sulfa (Sulfonamide Antibiotics) [SULFA (SULFONAMIDE ANTIBIOTICS)] Allergy (Unknown, Verified 08/25/24 10:03) RASH sulfamethoxazole Allergy (Unknown, Verified 08/25/24 10:03) rash morphine [MORPHINE] Adverse Reaction (Unknown, Verified 08/25/24 10:03) VOMITING Medication List - Last Reconciled 08/25/24 by Tommie Chavis MD flash glucose scanning reader (FreeStyle Nati 2 [place]) As directed flash glucose sensor (FreeStyle Nati 2 Sensor kit) As directed every 2 weeks insulin aspart (niacinamide) 100 unit/mL (3 mL) (Fiasp FlexTouch U-100 Insulin) 20 units subcut TID 90 days insulin glargine (Basaglar KwikPen U-100 Insulin) 50 units subcut BEDTIME lisinopril 10 mg PO BID metformin 1,000 mg PO BID pen needle, diabetic (BD Ultra-Fine Short Pen Needle) once a daily sitagliptin phosphate (Januvia) 100 mg PO DAILY Tobacco use date assessed: 08/25/24 Fall risk assessment: No Falls in past year Last assessed Fall Risk: 08/25/24 Dental Screening Dental Screen Date: 08/25/24 Did you have a dental visit in the last 12 months?: No Did you have a dental problem in the last 6 months where you did not have access to dental care?: No Was dental information given to patient?: Patient has dentist HPI TCM TCM Information Date of Discharge 08/13/24 Discharged From [facility] Interactive Contact Date (Reference documentation from this date) 08/16/24 HPI Comments History of Present Illness Details Patient presents to the office for a TCM visit. ? Date of admission:08/09/2024 Date of discharge:08/13/2024 This is a Follow-up from admission at [facility]: Hospital Course/Discharge Summary: Discharged to/Current Location: Home Lives with: Diagnosis:Acute Pancreatitis Procedures performed:None New medications:None Discontinued medications:None Change medications/dosing:Insulin Pending labs:LFT Pending diagnostic test:MRCP in a few months Any Follow-up Labs required? Yes, LFT Any Follow-up Diagnostic test required? MRCO How are you feeling? Are you in any pain or discomfort? No Do you have any questions about your condition or discharge instructions? None Were you able to get your medications filled? Yes Do you have any questions about your medications? No Any referrals required? GI Were you able to schedule your follow-up appointment? not yet If home health was ordered, have they contact you?NA Any outpatient services, if so, are you scheduled?NA Are there any additional resources like transportation you might need during her recovery? ? - VNA? - NEUROSURGICAL NURSE? - Meals on wheels? Educational need/resources: What support system do you have? 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 Sister Mental health disorder Maternal Aunt Colon cancer Social History (Updated 08/25/24 @ 09:52 by AMIRA Zarco) Household Members: Spouse Housing: Apartment Do you presently have visiting nurse or other home services: No Alcohol intake: current Alcohol intake frequency: does not drink Patient Tobacco Use Status: Current everyday Tobacco user Tobacco use type: Cigarette Cigarette Packs Per Day: 0.5 Cigarettes Per Day: 3 Years Smoked: 25 e-Cigarette/Vaping Use: Never Used Second Hand Smoke Exposure: Yes service: No Current occupational status: employed Cognitive needs: No Hearing needs: No Vision needs: Yes (Glasses) Questionnaire PHQ-9 Over the last 2 weeks, how often have you been bothered by any of the following problems? 1. Little interest or pleasure in doing things: nearly every day 2. Feeling down, depressed, or hopeless: nearly every day 3. Trouble falling or staying asleep, or sleeping too much: nearly every day 4. Feeling tired or having little energy: nearly every day 5. Poor appetite or overeating: more than half the days 6. Feeling bad about yourself - or that you are a failure or have let yourself or your family down: not at all 7. Trouble concentrating on things, such as reading the newspaper or watching television: not at all 8. Moving or speaking so slowly that other people could have noticed. Or the opposite - being so fidgety or restless that you have been moving around a lot more than usual: not at all 9. Thoughts that you would be better off or of hurting yourself in some way: not at all Total score: 14 Depression Screening Interpretation: Positive Depression Screening Done: Yes Source: Developed by Drs. Sujit Poole, Jazmyn Minor, Rick Ross and colleagues, with an educational roshni from [employer]. Thrive Questionnaire Date Thrive assessed: 08/09/24 AUDIT C Alcohol Use Questionnaire (AUDIT-C) 1. How often do you have a drink containing alcohol?: Monthly or less 2. How many drinks containing alcohol do you have on a typical day when you are drinking?: 1 or 2 Total Score: 1 MONIKA-7 AMB Questionnaire MONIKA-7 Date MONIKA - 7 assessed: 08/25/24 Feeling nervous, anxious, or on edge: 3 = Nearly every day Not being able to stop or control worryin = Nearly every day Worrying too much about different things: 3 = Nearly every day Trouble relaxin = More than half the days Being so restless that it is hard to sit still: 1 = Several days Becoming easily annoyed or irritable: 0 = Not at all Feeling afraid as if something awful might happen: 0 = Not at all Total MONIKA-7 score (0-4 normal; 5-9 mild; 10-14 moderate; 15-21 severe): 12 Source: Developed by Drs. Sujit Poole, Jazmyn Minor, Rick Ross and colleagues, with an educational roshni from [employer]. Physical exam (Primary Care) Vital Signs: Last Vital Signs Temp 97.1 F 08/25/24 09:47 Pulse 115 H 08/25/24 09:47 BP 128/62 08/25/24 09:47 Pulse Ox 94 08/25/24 09:47 Oxygen Delivery Method Room Air 08/25/24 09:47 BMI result Body Mass Index 26.3 Tobacco/Smoking Status: Tobacco use Status Tobacco use date assessed 08/25/24 08/25/24 09:55 Patient Tobacco Use Status Current everyday Tobacco 08/25/24 09:52 Tobacco use type Cigarette 08/25/24 09:52 e-Cigarette/Vaping Use Never Used 08/25/24 09:52 PHQ-9: PHQ-9 Score PHQ-9: Total score 14 08/25/24 09:55 Depression Screening Interpretation: Positive Thrive Assessment: Date of Thrive Assessment Date Thrive assessed 08/09/24 08/25/24 09:45 Const General: cooperative and healthy appearing Nutritional Appearance: well nourished Orientation/consciousness: patient oriented x3 Limitations: no limitations HENMT Head: Yes normal to inspection Eyes General: appearance normal, both eyes and all related structures Neck Neck: Yes normal visual inspection Chest Chest palpation & inspection: normal palpation of entire chest wall Resp Effort & Inspection: normal respiratory effort Neuro General: patient oriented x3 Coding Level of Care Code TCM Mod MDM <= 14 Days Diagnoses Acute pancreatitis K85.90 Assessment & Plan Assessment & Plan (1) Acute pancreatitis: Code(s): K85.90 - Acute pancreatitis without necrosis or infection, unspecified Plan: Hospital course reviewed. Repeat blood work has been ordered. GI appointment in a month or 2. Patient was encouraged to take ensure. FMLA forms filled. Orders: Orders Basic Metabolic Panel Today K85.90 - Acute pancreatitis without necrosis or infection, unspecified Lipid Panel Today K85.90 - Acute pancreatitis without necrosis or infection, unspecified Complete Blood Count no Diff Today K85.90 - Acute pancreatitis without necrosis or infection, unspecified Liver Panel Today K85.90 - Acute pancreatitis without necrosis or infection, unspecified Thyroid Stimulating Hormone Today K85.90 - Acute pancreatitis without necrosis or infection, unspecified Lipase Today K85.90 - Acute pancreatitis without necrosis or infection, unspecified
[2024-08-25 09:47] VITALS: BP 128/62; PULSE 115; TEMP 36.2; O2SAT 94; BMI 26.3
== END 2024-08-25 10:21 | disposition home or self-care (01) ==
PROVIDERS: PCP Internal Medicine; Visit Provider Internal Medicine
DX: K85.90 Acute pancreatitis without necrosis or infection, unspecified (principal)

== ENCOUNTER → 2024-08-25 09:01 | Outpatient (BNVA) | payer MEDICARE, MEDICAID, SELFPAY | PROVIDERS: PCP Internal Medicine; Visit Provider Internal Medicine | DX: K85.90 Acute pancreatitis without necrosis or infection, unspecified (principal) | CPT/HCPCS: 99495 ==

== ENCOUNTER 2024-09-16 11:17 | Outpatient (REF) | payer MEDICARE, MEDICAID, SELFPAY ==
--- NOTE | ~2024-09-16 | MR_ITS ---
EXAMINATION: MRI Abdomen without and with contrast HISTORY: PANCREATITIS, ELEVATED LFT, BILE DUCT ABN COMPARISON: Comparison is made with the prior examination dated 08/09/2024. TECHNIQUE: Axial in and out of phase T1-weighted gradient echo, axial diffusion weighted, and axial and coronal HASTE T2 with fat saturation images were obtained through the abdomen. 3D MRCP Reconstructed and thin and thick slab images of the biliary tree were obtained. Subsequently, fat suppressed axial and coronal T1-weighted images were obtained after the intravenous administration of 7 mL Gadavist. FINDINGS: There is no significant loss of signal intensity within the liver on opposed phase imaging to suggest steatosis. There is no enhancing liver mass. The degree of dilatation of the common bile duct has decreased since the prior study. Proximally, the common bile duct measures up to 15 mm (previously 23 mm) and distally the common bile duct measures up to 8 mm (previously 10 mm). No intraluminal filling defects are identified to suggest choledocholithiasis. The patient is status post cholecystectomy. There is a 6.2 x 2.5 x 4.4 cm fluid collection containing internal debris anterior to the pancreatic body which demonstrates rim enhancement, but no central enhancement. Findings are consistent with a pseudocyst. The previously seen fluid medial to the liver about the pancreatic head and distal tail is no longer identified. The pancreatic duct is normal in caliber. The spleen is top normal in size. The right adrenal gland is unremarkable. Again seen is a 3.1 x 2.0 cm left adrenal mass which demonstrates loss of signal intensity on opposed phase imaging consistent with an adenoma. The kidneys are unremarkable. No retroperitoneal lymphadenopathy is identified. MR/MR abdomen wo/w con IMPRESSION: 1. Decrease in caliber of the common bile duct since the prior study as described. No evidence of choledocholithiasis. 2. 6.2 x 2.5 x 4.4 cm pseudocyst anterior to the pancreatic body. 3. 3.1 x 2.0 cm left adrenal adenoma. Electronically signed by: Sujit Reyes MD 09/16/2024 02:24 PM EDT
[2024-09-16] MEDS: gadobutroL 7.5 ML VIAL IVPUSH (12:30)
--- OUTSIDE RECORDS SUMMARY | 2024-09-16 13:45 | XMS_ITS ---
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) Active confirmed Problem Elevated liver enzymes level (136881106) Elevated liver function tests (R94.5) Active confirmed Encounters Encounter Location Date Provider Diagnosis [facility] [address] [place] [address] 09/04/2024 Sujit Lopez Pancreatitis, gallstone K85.10 ; [...] Lipase 09/04/2024 Next Appt Details Provider Name:Sujit Jose J John , 12/28/2024 03:00:00 PM, [address], [address], [place], [address], Progress Notes * LULU HERNANDEZ:1960 (63 yo F)Acc No.[id number]:09/04/2024 Patient:?LETICIA HERNANDEZ :1960???Age:63 Y???Sex:Female [address] [facility] [address] Subjective: * Chief Complaints: * ??? * Medical History:? * Surgical History:? * Hospitalization/Major Diagno stic Procedure:? * Medications:? Objective: * Vitals:? * Physical Examination:? Assessment: * Assessment: 1.?Pancreatitis, gallstone - K85.10???2.?Elevated liver function tests - R94.5???3.?Bile duct abnormality - K83.9??? Plan: * Treatment: * 2.?Elevated liver function tests?Imaging: MRI ABD W&WO CONTRAST* R/O CBD stone, compare to 2024 * 3.?Bile duct abnormality?Imaging: MRI ABD W&WO CONTRAST* R/O CBD stone, compare to 2024 * * Procedure Codes:? * true * Date:? Generated for Marcos glez/Karen/eTransmitting on:?09/16/2024 01:44 PM EDT
--- OUTSIDE RECORDS SUMMARY | 2024-09-16 13:45 | XMS_ITS | Patient Health Record ---
Author Organization [facility] Address [address] [place] [address] Care Team Providers Care Physical Testing Supervisor Name Role Phone ANASTACIO PEREZ Primary Care Provider Mario Lopez Sujit Unavailable [phone] Results Component Value Reference Range Notes Complete Blood Count Auto Di ff Reviewed date:08/09/2024 12:19:02 PM Interpretation: Performing Lab:[facility], [address] [place] [phone] Notes/Report: White Blood Count 11.4 4.8-10.8 X10*3/uL Red Blood Count 4.02 4.20-5.50 X10*6/uL Hemoglobin 11.7 12.0-16.0 g/dl Hematocrit 34.1 37.0-47.0 % Mean Corpuscular Volume 84.8 80.0-98.0 fL Mean Corpuscular Hemoglobin 29.1 27.0-33.0 pg Mean Corpuscular HGB Conc 34.3 31.0-35.0 g/dl Red Cell Distribution Width 14.1 11.0-16.0 % Platelet Count 198 160-400 X10*3/uL Mean Platelet Volume 10.0 9.4-12.3 fL Neutrophils Percent Auto 85.3 45-73 % Imm Gran Pct Auto 0.2 0.0-0.4 % Lymphocytes Percent Auto 8.3 20-40 % Monocytes Percent Auto 5.9 2-11 % Eosinophils Percent Auto 0.0 0-4 % Basophils Percent Auto 0.3 0-2 % NRBC Pct Auto 0.0 0.0-0.2 /100WBC Neutrophils Absolute Auto 9.7 2.0-8.3 x10*3/u L Imm Gran Abs Auto 0.02 0.00-0.03 X10*3/uL Lymphocytes Absolute Auto 0.9 1.2-4.9 X10*3/u L Monocytes Absolute Auto 0.7 0.1-1.2 X10*3/uL Eosinophils Absolute Auto 0.0 0.0-0.4 X10*3/u L Basophils Absolute Auto 0.0 0.0-0.2 X10*3/uL NRBC Abs Auto 0.000 0.0-0.012 X10*3/uL Liver Panel Reviewed date:08/09/2024 12:19:15 PM Interpretation: Performing Lab:[facility], [address] [place] [phone] Notes/Report: Bilirubin Total 5.9 0.0-1.0 mg/dL Mild Icteru s. Bilirubin Direct 4.9 0.0-0.5 mg/dL Mild Icter us. Aspartate Amino Transferase 135 5-31 U/L Alanine Aminotransferase 198 0-31 U/L Total Protein 6.4 6.5-8.0 g/dL Albumin Level 3.1 3.5-5.0 g/dL Alkaline Phosphatase 233 39-117 U/L Basic Metabolic Panel Fastin g Reviewed date:08/09/2024 12:19:27 PM Interpretation: Performing Lab:[facility], [address] [place] [phone] Notes/Report: Sodium 135 135-145 mmol/L Potassium 4.0 3.3-5.1 mmol/L Chloride 102 96-108 mmol/L Carbon Dioxide 24 22-29 mmol/L Anion Gap 13 12-20 Blood Urea Nitrogen 70 9-16 mg/dL Creatinine 1.50 0.5-1.4 mg/dL Creatinine Clr Calc Pharmacy 40.0 Provided height and weight: 165.1 cm, 81.7 kg. eGFR (calculated from the MDRD study equation) and eCrCl (calculated from the Cockcroft-Gault equation) are based on different parameters and may not yield comparable results. If eCrCl result is absurd, please check patient's height/weight. Estimated Glomerular Filt Rate 35 Chronic Kidney Disease: Estimated GFR < 60 mL/min/1.73m2 Severe Kidney Disease: Estimated GFR < 15 mL/min/1.73m2 Glucose Fasting 134 60-99 mg/dL A fasting glucose of 126 mg/dl or greater on more than one occasion is considered diagnostic of diabetes. Calcium 8.2 8.4-10.2 mg/dL Complete Blood Count Auto Di ff Reviewed date:08/11/2024 09:25:00 AM Interpretation: Performing Lab:[facility], [address] [place] [phone] Notes/Report: White Blood Count 8.6 4.8-10.8 X10*3/uL Red Blood Count 3.32 4.20-5.50 X10*6/uL Hemoglobin 9.7 12.0-16.0 g/dl Hematocrit 28.0 37.0-47.0 % Mean Corpuscular Volume 84.3 80.0-98.0 fL Mean Corpuscular Hemoglobin 29.2 27.0-33.0 pg Mean Corpuscular HGB Conc 34.6 31.0-35.0 g/dl Red Cell Distribution Width 14.0 11.0-16.0 % Platelet Count 196 160-400 X10*3/uL Mean Platelet Volume 9.9 9.4-12.3 fL Neutrophils Percent Auto 76.9 45-73 % Imm Gran Pct Auto 0.9 0.0-0.4 % Lymphocytes Percent Auto 13.1 20-40 % Monocytes Percent Auto 8.7 2-11 % Eosinophils Percent Auto 0.1 0-4 % Basophils Percent Auto 0.3 0-2 % NRBC Pct Auto 0.0 0.0-0.2 /100WBC Neutrophils Absolute Auto 6.6 2.0-8.3 x10*3/u L Imm Gran Abs Auto 0.08 0.00-0.03 X10*3/uL Lymphocytes Absolute Auto 1.1 1.2-4.9 X10*3/u L Monocytes Absolute Auto 0.8 0.1-1.2 X10*3/uL Eosinophils Absolute Auto 0.0 0.0-0.4 X10*3/u L Basophils Absolute Auto 0.0 0.0-0.2 X10*3/uL NRBC Abs Auto 0.000 0.0-0.012 X10*3/uL Liver Panel Reviewed date:08/11/2024 09:25:20 AM Interpretation: Performing Lab:[facility], [address] [place] [phone] Notes/Report: Bilirubin Total 1.6 0.0-1.0 mg/dL Bilirubin Direct 1.1 0.0-0.5 mg/dL Aspartate Amino Transferase 37 5-31 U/L Alanine Aminotransferase 100 0-31 U/L Total Protein 5.8 6.5-8.0 g/dL Albumin Level 2.6 3.5-5.0 g/dL Alkaline Phosphatase 198 39-117 U/L Basic Metabolic Panel Fastin g Reviewed date:08/11/2024 09:26:02 AM Interpretation: Performing Lab:[address] [phone] Notes/Report: Sodium 136 135-145 mmol/L Potassium 3.9 3.3-5.1 mmol/L Chloride 103 96-108 mmol/L Carbon Dioxide 26 22-29 mmol/L Anion Gap 11 12-20 Blood Urea Nitrogen 27 9-16 mg/dL Creatinine 0.89 0.5-1.4 mg/dL Creatinine Clr Calc Pharmacy 67.4 Provided height and weight: 165.1 cm, 81.7 kg. eGFR (calculated from the MDRD study equation) and eCrCl (calculated from the Cockcroft-Gault equation) are based on different parameters and may not yield comparable results. If eCrCl result is absurd, please check patient's height/weight. Estimated Glomerular Filt Rate > 60 Chronic Kidney Disease: Estimated GFR < 60 mL/min/1.73m2 Severe Kidney Disease: Estimated GFR < 15 mL/min/1.73m2 Glucose Fasting 167 60-99 mg/dL A fasting glucose of 126 mg/dl or greater on more than one occasion is considered diagnostic of diabetes. 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) Active confirmed Problem Elevated liver enzymes level (074975385) Elevated liver function tests (R94.5) Active confirmed Problem Gallstone pancreatitis (93079820) Pancreatitis, gallstone (K85.10) Active confirmed Encounters Encounter Location Date Provider Diagnosis [facility] [address] [place] [address] 09/04/2024 Sujit Lopez Pancreatitis, gallstone K85.10 ; [...] Lipase 09/04/2024 Next Appt Details Provider Name:Sujit Lopez , 12/28/2024 03:00:00 PM, [address], [address], [place], [address], Insurance Providers Payer Name Payer Address Payer Phone Subscriber Number Group Number Insured Name Patient Relationship to Insured Coverage Start Date Coverage End Date MEDICARE OF [place] [address] [place] [id number] LETICIA HERNANDEZ Self - patient is the insured MEDICAID OF [facility] Thrinacia [address] [facility] [place] [address] [id number] LETICIA HERNANDEZ Self - patient is the insured
== END 2024-09-16 11:18 | disposition home or self-care (01) ==
LOC: HO.MRI 11:17
PROVIDERS: PCP Internal Medicine; Visit Provider Internal Medicine
DX: K85.10 Biliary acute pancreatitis without necrosis or infection (principal); R94.5 Abnormal results of liver function studies; K83.9 Disease of biliary tract, unspecified
CPT/HCPCS: 74183; A9585

== ENCOUNTER → 2024-09-16 11:45 | Outpatient (BNV) | payer MEDICARE, MEDICAID, SELFPAY | PROVIDERS: PCP Internal Medicine; Visit Provider Radiology Diagnostic Radiology | DX: K85.90 Acute pancreatitis without necrosis or infection, unspecified (principal) | CPT/HCPCS: 74183 ==

== ENCOUNTER 2024-12-15 10:28 | Outpatient (AMB) | payer MEDICARE, SELFPAY ==
--- OUTSIDE RECORDS SUMMARY | 2024-09-04 10:00 | XMS_ITS ---
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) Active confirmed Problem Elevated liver enzymes level (103880568) Elevated liver function tests (R94.5) Active confirmed Encounters Encounter Location Date Provider Diagnosis [facility] [address] [place] [address] 09/04/2024 Sujit Lopez Pancreatitis, gallstone K85.10 ; Elevated liver function tests R94.5 and Bile duct abnormality K83.9 Assessments Encounter Date Diagnosis (ICD Code) Assessment Notes Treatment Notes Treatment Clinical Notes Section Notes 09/04/2024 Pancreatitis, gallstone (ICD-10 - K85.10) 09/04/2024 Elevated liver function tests (ICD-10 - R94.5) 09/04/2024 Bile duct abnormality (ICD-10 - K83.9) Plan Of Treatment Pending Test Test Name Order Date LIVER PROFILE 09/04/2024 CA 19-9 09/04/2024 MRI ABD W&WO CONTRAST 09/04/2024 Lipase 09/04/2024 Next Appt Details Provider Name:Sujit Lux John , 12/28/2024 03:00:00 PM, [address], [address], [place], [address], Progress Notes * LULU HERNANDEZ:1960 (63 yo F)Acc No.[id number]:09/04/2024 Patient: LETICIA GRAVES :1960 A ge:63 Y S ex:Female Address:[address] [place] [id number] Subjective: * Chief Complaints: * * Medical History: * Surgical History: * Hospitalization/Major Diagno stic Procedure: * Medications: Objective: * Vitals: * Physical Examination: Assessment: * Assessment: 1. P ancreatitis, gallstone - K85.10 2 . E levated liver function tests - R94.5 3 . B ile duct abnormality - K83.9 Plan: * Treatment: * 2.?Elevated liver function tests?Imaging: MRI ABD W&WO CONTRAST* R/O CBD stone, compare to 2024 * 3.?Bile duct abnormality?Imaging: MRI ABD W&WO CONTRAST* R/O CBD stone, compare to 2024 * * Procedure Codes: * true * Date: Generated for Marcos glez/Karen/eTransmitting on: 0 12/15/2024 11:55 AM EDT
--- NOTE | 2024-12-15 10:57 | MHC.PC.OV ---
Vital Signs 12/15/24 10:59 Height 5 ft 5 in Weight 160 lb 6 oz BMI 26.7 BP 120/82 Blood Pressure Location Lt brachial Position Sitting Pulse 79 Pulse Source Pulse Oximeter Temp 97.1 F Temp Source Temporal Artery Scan Pulse Oximetry (%) 97 Oxygen Delivery Method Room Air Intake Visit Reasons: 3mth f/u Intake Note: Patient is here to follow up on DM, HTN, PVD. Neonatologist Required: No Processor Inspector: Present Accompanied by: Daughter Allergies Sulfa (Sulfonamide Antibiotics) (SULFA (SULFONAMIDE ANTIBIOTICS)) Allergy (Unknown, Verified 12/15/24 11:54) RASH sulfamethoxazole Allergy (Unknown, Verified 12/15/24 11:54) rash morphine (MORPHINE) Adverse Reaction (Unknown, Verified 12/15/24 11:54) VOMITING Tobacco use date assessed: 12/15/24 Fall risk assessment: No Falls in past year Last assessed Fall Risk: 12/15/24 Dental Screening Dental Screen Date: 08/25/24 [facility] Medical History (Updated 08/21/24 @ 00:02 by Roxanne Kendrick) 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, 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 Sister Mental health disorder Maternal Aunt Colon cancer Social History Household Members: Spouse Housing: Apartment Do you presently have visiting nurse or other home services: No Alcohol intake: current Alcohol intake frequency: does not drink Patient Tobacco Use Status: Current everyday Tobacco user Tobacco use type: Cigarette Cigarette Packs Per Day: 0.5 Cigarettes Per Day: 10 Years Smoked: 25 e-Cigarette/Vaping Use: Never Used Second Hand Smoke Exposure: Yes service: No Current occupational status: employed Cognitive needs: No Hearing needs: No Vision needs: Yes (Glasses) Questionnaire Thrive Questionnaire Date Thrive assessed: 08/09/24 MONIKA-7 AMB Questionnaire MONIKA-7 Date MONIKA - 7 assessed: 08/25/24 Source: Developed by Drs. Sujit Poole, Jazmyn Minor, Rick Ross and colleagues, with an educational roshni from [employer]. Physical exam (Primary Care) Vital Signs: Last Vital Signs Temp 97.1 F 12/15/24 10:59 Pulse 79 12/15/24 10:59 BP 120/82 12/15/24 10:59 Pulse Ox 97 12/15/24 10:59 Oxygen Delivery Method Room Air 12/15/24 10:59 BMI result Body Mass Index 26.7 Tobacco/Smoking Status: Tobacco use Status Tobacco use date assessed 12/15/24 12/15/24 11:07 Patient Tobacco Use Status Current everyday Tobacco 12/15/24 11:07 Tobacco use type Cigarette 12/15/24 11:07 e-Cigarette/Vaping Use Never Used 12/15/24 11:07 Thrive Assessment: Date of Thrive Assessment Date Thrive assessed 08/09/24 12/15/24 11:07 Results AMB Hemoglobin A1c AMB Hemoglobin A1c 7.5 % Last Edit by AMIRA Zarco on 12/15/24 11:23 Results Reviewed Results Reviewed: Laboratory Last Values Hgb A1c (Clinic) 7.5 % (4.0-6.0) H 12/15/24 10:47 Coding Assessment & Plan Assessment & Plan Orders: Orders AMB Hemoglobin A1c Today E11.39 - Type 2 diabetes mellitus with other diabetic ophthalmic complication, H54.8 - Legal blindness, as defined in [place] Medications: Refilled sitagliptin phosphate (Januvia) 100 mg PO DAILY 90 tabs 1RF insulin regular human (Novolin R Regular U-100 Insulin) 20 units (0.2 mL) subcut Q8H 10 mL 0RF
[2024-12-15 10:59] VITALS: BP 120/82; PULSE 79; TEMP 36.2; O2SAT 97; BMI 26.7
== END 2024-12-15 11:56 | disposition home or self-care (01) ==
LOC: HO.HMCH 10:29
PROVIDERS: PCP Internal Medicine; Visit Provider Internal Medicine
DX: E11.39 Type 2 diabetes mellitus with other diabetic ophthalmic complication (principal); H54.8 Legal blindness, as defined in USA

== ENCOUNTER → 2024-12-15 10:28 | Outpatient (BNVA) | payer MEDICARE, SELFPAY | PROVIDERS: PCP Internal Medicine; Visit Provider Internal Medicine | DX: E11.621 Type 2 diabetes mellitus with foot ulcer (principal); L97.509 Non-pressure chronic ulcer of other part of unspecified foot with unspecified severity; Z79.4 Long term (current) use of insulin | CPT/HCPCS: 83036; 99212 ==

== ENCOUNTER 2025-03-09 10:12 | Outpatient (AMB) | payer MEDICARE, SELFPAY ==
--- OUTSIDE RECORDS SUMMARY | 2024-12-28 11:00 | XMS_ITS ---
Author Organization [facility] Address [address] [place] [address] Care Team Providers Care Collection Systems Consultant Name Role Phone ANASTACIO PEREZ Primary Care Provider Sujit Jacoob [phone] REASON FOR VISIT Patient presents today for a hx pancreatitis, elevated lft's Encounters Encounter Location Date Provider Diagnosis [facility] [address] [place] [address] 12/28/2024 Sujit Lopez Plan Of Treatment Next Appt Details Provider Name:Sujit Lopez , 10/03/2025 10:20:00 AM, [address], [address], [place], [address], Progress Notes * JASPAL HERNANDEZB:1960 (64 yo F)Acc No.[id number]:12/28/2024 Progress Notes Patient: LETICIA GRAVES Provider: Laverne Lopez MD :1960 A ge:64 Y S ex:Female Date:12/28/2024 Address:[address] [place], [place] [id number] Pcp:ANASTACIO PEREZ Subjective: * Chief Complaints: * 1 . Patient presents today for a hx pancreatitis, elevated lft's. * Medical History: Objective: * Vitals: Assessment: Plan: * Treatment: * * The named appointment provid er may or may not be the originator of this progress note, and it is not deemed complete until electronically signed by the appointment provider. Sign off status: Pending * Provider: Laverne Lopez MD Date: 0 12/28/2024 Generated for Marcos glez/Karen/Kortney on: 0 03/09/2025 12:28 PM EDT
--- OUTSIDE RECORDS SUMMARY | 2025-03-02 06:20 | XMS_ITS ---
Author Organization [facility] Address [address] [place] [id number] Care Team Providers Care Fractionation Plant Supervisor Name Role Phone ANASTACIO PEREZ Primary Care Provider Sujit Jacobo Unavailable [phone] Allergies No Known Allergies REASON FOR VISIT Patient presents today for a hx pancreatitis Medications Medication SIG (Take, Route, Frequency, Duration) Notes Start Date End Date Status metFORMIN HCl 1000 MG 1 tablet with a me al Orally Once a day for 30 day(s) 03/02/2025 Active SITagliptin 100 MG 1 tablet Orally Once a day for 30 day(s) 03/02/2025 Active Lisinopril 10 MG 1 tablet Orally Once a day for 30 day(s) 03/02/2025 Active Insulin Aspart 100 UNIT/ML as directed Subcutaneous 03/02/2025 Active Basaglar KwikPen 100 UNIT/ML as directed Subcutaneous 03/02/2025 Act roxana Social History Tobacco Use: Social History Observation Description Date Details (start date - stop date) Current Smoker NA - NA Tobacco Control (Standard) Question Answer Notes Tobacco use: Current smoker AUDIT-C (Standard) Question Answer Notes Did you have a drink containing alcohol in the p ast year? No Points 0 Interpretation Negative Problems Problem Type SNOMED Code ICD Code Onset Dates Problem Status W/U Status Risk Notes Problem Pancreatic pseudocyst (271921756) Pancreatic pseudocyst (K86.3) Active confirmed Problem Colon cancer screening (699528245) Colon cancer screening (Z12.11) Active confirmed Problem History of pancreatitis (03819383468327) History of pancreatitis (Z87.19) Active confirmed Vital Signs Temperature 98.6 degrees Fahrenheit 03/02/20 25 Blood pressure systolic 001 mm Hg 03/02/20 25 Blood pressure diastolic 01 mm Hg 025 Height 65 in 03/02/2025 Weight 162.8 lbs 03/02/2025 BMI 27.09 kg/m2 03/02/2025 Encounters Encounter Location Date Provider Diagnosis [facility] [address] [place] [address] 03/02/2025 Sujit Lopez Pancreatic pseudocys t K86.3 ; Colon cancer screening Z12.11 and History of pancreatitis Z87.19 Assessments Encounter Date Diagnosis (ICD Code) Assessment Notes Treatment Notes Treatment Clinical Notes Section Notes 03/02/2025 Pancreatic pseudocyst (ICD-10 - K86.3) Overall, Aarti appears well and seems to have recovered nicely from her episode of pancreatitis earlier this year. She is not having any new or worrisome GI complaints at the present time. The follow-up MRCP is encouraging in regard to decrease in diameter of the bile duct and no sign of choledocholithia sis. However, we did review the finding of the pseudocyst which was fairly large at that time up to 6 cm. As such, I did recommend she have a CT scan for follow-up of that to be sure it has resolved. I shall schedule that for her along with the below laboratories. If the CT scan demonstrates that the pseudocyst has either not decreased in size, or certainly if it is bigger, she may need consideration of drainage by endoscopic ultrasound. However, I suspect it will be improved given her good clinical appearance and the lack of any symptoms at this time. We did review that she would be due for a follow-up colonoscopy in 2027 given the negative exam with Dr. Estrada in 2018 other than the hyperplastic polyp. I will see Aarti in the Spring for a follow-up visit but did advise her to certainly call in the interim if she has any problems or questions I can be of assistance with. Aarti was comfortable with this plan. Thank you again for allowing me to participate in Aarti's care. I shall continue to keep you advised of her progress. 03/02/2025 Colon cancer screening (ICD-10 - Z12.11) Repeat colonoscopy in 05/2028 Overall, Aarti appears well and seems to have recovered nicely from her episode of pancreatitis earlier this year. She is not having any new or worrisome GI complaints at the present time. The follow-up MRCP is encouraging in regard to decrease in diameter of the bile duct and no sign of choledocholithia sis. However, we did review the finding of the pseudocyst which was fairly large at that time up to 6 cm. As such, I did recommend she have a CT scan for follow-up of that to be sure it has resolved. I shall schedule that for her along with the below laboratories. If the CT scan demonstrates that the pseudocyst has either not decreased in size, or certainly if it is bigger, she may need consideration of drainage by endoscopic ultrasound. However, I suspect it will be improved given her good clinical appearance and the lack of any symptoms at this time. We did review that she would be due for a follow-up colonoscopy in 2027 given the negative exam with Dr. Estrada in 2018 other than the hyperplastic polyp. I will see Aarti in the Spring for a follow-up visit but did advise her to certainly call in the interim if she has any problems or questions I can be of assistance with. Aarti was comfortable with this plan. Thank you again for allowing me to participate in Aarti's care. I shall continue to keep you advised of her progress. 03/02/2025 History of pancreatitis (ICD-10 - Z87.19) Overall, Aarti appears well and seems to have recovered nicely from her episode of pancreatitis earlier this year. She is not having any new or worrisome GI complaints at the present time. The follow-up MRCP is encouraging in regard to decrease in diameter of the bile duct and no sign of choledocholithia sis. However, we did review the finding of the pseudocyst which was fairly large at that time up to 6 cm. As such, I did recommend she have a CT scan for follow-up of that to be sure it has resolved. I shall schedule that for her along with the below laboratories. If the CT scan demonstrates that the pseudocyst has either not decreased in size, or certainly if it is bigger, she may need consideration of drainage by endoscopic ultrasound. However, I suspect it will be improved given her good clinical appearance and the lack of any symptoms at this time. We did review that she would be due for a follow-up colonoscopy in 2027 given the negative exam with Dr. Estrada in 2018 other than the hyperplastic polyp. I will see Aarti in the Spring for a follow-up visit but did advise her to certainly call in the interim if she has any problems or questions I can be of assistance with. Aarti was comfortable with this plan. Thank you again for allowing me to participate in Aarti's care. I shall continue to keep you advised of her progress. Plan Of Treatment Treatment Notes Assessment Notes Colon cancer screening Repeat colonoscop y in 05/2028 Pending Test Test Name Order Date BUN 03/02/2025 LIVER PROFILE 03/02/2025 CA 19-9 03/02/2025 CT ABD & PELVIS WITH CONTRAST 03/02/2025 Creatinine 03/02/2025 Amylase 03/02/2025 Lipase 03/02/2025 Next Appt Details Follow Up: Spring 2025, Reas on: Provider Name:Sujit Lopez , 10/03/2025 10:20:00 AM, [address] [place] [address], [address], [place], [address], Progress Notes * KEVIN HERNANDEZLIANB:1960 (64 yo F)Acc No.[id number]:03/02/2025 Progress Notes Patient: AARTI GRAVES Provider: Laverne Lopez MD :1960 A ge:64 Y S ex:Female Date:03/02/2025 Address:[address] [place], [place] [id number] Pcp:ANASTACIO PEREZ Subjective: * Chief Complaints: * 1 . Patient presents today for a hx pancreatitis. * HPI: i ncontinence: I saw Aarti in follow-up today in regard to her episode of presumed biliary pancreatitis back in July. I last saw Aarti in July when I met her during her hospitalization for pancreatitis presumed due to passage of a common duct stone. She had had a previous cholecystectomy [place] [address] Kendall. When she came in the hospital she did have elevated LFTs but a MRCP was negative for stones although did show a dilated bile duct. She did have pancreatitis. She improved fairly quickly and was discharged. She did have a follow-up MRCP in August which showed a decrease in the degree of dilatation of the common bile duct and again without any sign of choledocholithiasis. There was a pancreatic pseudocyst noted measuring up to 6.2 cm. However, since discharge from the hospital she has been feeling very well. She has had no recurrent abdominal pain, jaundice, nor anorexia. She has been under stress due to the of her from what sounds like cholangiocarcinoma in August. She currently is eating comfortably and denies any significant heartburn, dysphagia, early satiety, nausea, nor vomiting. She reports that her bowel movements have been regular and without any signs of bleeding. She has not noticed any jaundice nor increasing abdominal girth. She did have a colonoscopy in [address] Estrada with removal of only a hyperplastic polyp. She denies any known family history of colorectal cancer. * Medical History: I DDM- has had retina laser surgery- legally blind, Denies SC,CVA,Lung disease,renal disease, Screening colonoscopy with Dr. Estrada 05/2018 with only a hyperplastic polyp, HTN, Pancreatitis 07/2024 from a probable passed CBD stone- neg. MRCP except for a dilated CBD; F/U CT in 08/2024 showed improvement of the CBD but a pseudocyst measuring 6 x 4 x 2 cm. * Surgical History: C CY 2010, Appendix 1991, Ectopic 1993, C-sections 1988,1989, Partial toe amputated due to infection from the IDDM 2021, Ovarian cyst removed 2004. * Hospitalization/Major Diagno stic Procedure: p ancreatitis 08/23. * Family History: F ather: , diagnosed with HTN (hypertension), Diabetes. M other: alive, diagnosed with Diabetes, HTN (hypertension). No family history of liver cancer. Mother's sister had colon cancer. * Social History: T obacco Use: T obacco Control (Standard) T obacco use: C urrent smoker. M iscellaneous: M arital status: . 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 D rug/Alcohol: A RADHA-C (Standard) D id you have a drink containing alcohol in the past year? N o,?Points 0 , I nterpretation N egative. * Medications: T aking Insulin Aspart 100 UNIT/ML Solution Pen-injector as directed Subcutaneous , Taking Basaglar KwikPen 100 UNIT/ML Solution Pen-injector as directed Subcutaneous , Taking Lisinopril 10 MG Tablet 1 tablet Orally Once a day , Taking metFORMIN HCl 1000 MG Tablet 1 tablet with a meal Orally Once a day , Taking SITagliptin 100 MG Tablet 1 tablet Orally Once a day * Allergies: N .K.D.A. Objective: * Vitals: W t:162.8lbs, Ht:65in, BMI: 27.09 Index, BP:001/01mm Hg, Temp:98.6, Ht-cm: 165.1, Wt-k.85. Assessment: * Assessment: 1. P ancreatic pseudocyst - K86.3 (Primary) 2 . C olon cancer screening - Z12.11 3 . H istory of pancreatitis - Z87.19 Overall, Aarti appears well and seems to have recovered nicely from her episode of pancreatitis earlier this year. She is not having any new or worrisome GI complaints at the present time. The follow-up MRCP is encouraging in regard to decrease in diameter of the bile duct and no sign of choledocholithiasis. However, we did review the finding of the pseudocyst which was fairly large at that time up to 6 cm. As such, I did recommend she have a CT scan for follow-up of that to be sure it has resolved. I shall schedule that for her along with the below laboratories. If the CT scan demonstrates that the pseudocyst has either not decreased in size, or certainly if it is bigger, she may need consideration of drainage by endoscopic ultrasound. However, I suspect it will be improved given her good clinical appearance and the lack of any symptoms at this time. We did review that she would be due for a follow-up colonoscopy in 2027 given the negative exam with Dr. Estrada in 2018 other than the hyperplastic polyp. I will see Aarti in the Spring for a follow-up visit but did advise her to certainly call in the interim if she has any problems or questions I can be of assistance with. Aarti was comfortable with this plan. Thank you again for allowing me to participate in Aarti's care. I shall continue to keep you advised of her progress. Plan: * Treatment: * 2.?Colon cancer screening? Notes: Repeat colonoscopy in 05/2028??3.?History of pancreatitis?LAB: BUN ?LAB: LIVER PROFILE ?LAB: CA 19-9 ?LAB: Creatinine ?LAB: Amylase ?LAB: Lipase ?Imaging: CT ABD & PELVIS WITH CONTRAST* with oral and IV contrast pt was given lab slip * * Preventive Medicine: Counseling: C are goal follow-up plan: A willian Normal BMI Follow-up D ietary management education, guidance, and counseling, B SC management provided Y cristina. S moking Patient counseled on the dangers of tobacco use and urged to quit. 0 03/02/2025, R elapse prevention: D iscussed the importance of a supportive environment and helped identify them..? Urinary Incontinence: U rinary Incontinence A ssessment: P resent, P radha of care documented: Y es, T ype of plan of care: B ladder training. Screenings: F all Risk Screening F all Risk Assessment: N o falls in the past year, S creening: N o falls in the past year, A ssessment: N ot performed, no reason specified, P radha of Care: N ot documented, no reason specified. * Follow Up: S pring 2025 * * The named appointment provid er may or may not be the originator of this progress note, and it is not deemed complete until electronically signed by the appointment provider. Sign off status: Pending * Provider: Laverne Lopez MD Date: 0 03/02/2025 Generated for Marcos glez/Karen/Baritting on: 0 03/09/2025 12:28 PM EDT History and Physical Notes * HPI (History of Present Illness) Category Sub-Category Detail Notes Category Not es incontinence I saw Aarti in follow-up today in regard to her episode of presumed biliary pancreatitis back in July. I last saw Aarti in July when I met her during her hospitalization for pancreatitis presumed due to passage of a common duct stone. She had had a previous cholecystectomy [place] [address] Kendall. When she came in the hospital she did have elevated LFTs but a MRCP was negative for stones although did show a dilated bile duct. She did have pancreatitis. She improved fairly quickly and was discharged. She did have a follow-up MRCP in August which showed a decrease in the degree of dilatation of the common bile duct and again without any sign of choledocholithiasis. There was a pancreatic pseudocyst noted measuring up to 6.2 cm. However, since discharge from the hospital she has been feeling very well. She has had no recurrent abdominal pain, jaundice, nor anorexia. She has been under stress due to the of her from what sounds like cholangiocarcinoma in August. She currently is eating comfortably and denies any significant heartburn, dysphagia, early satiety, nausea, nor vomiting. She reports that her bowel movements have been regular and without any signs of bleeding. She has not noticed any jaundice nor increasing abdominal girth. She did have a colonoscopy in [address] Estrada with removal of only a hyperplastic polyp. She denies any known family history of colorectal cancer.
--- NOTE | 2025-03-09 10:29 | A.OFFPC_ITS ---
Vital Signs 03/09/25 10:31 Height 5 ft 5 in Weight 163 lb 2 oz BMI 27.1 BP 130/74 Blood Pressure Location Lt brachial Position Sitting Pulse 76 Pulse Source Pulse Oximeter Temp 96.6 F L Temp Source Temporal Artery Scan Pulse Oximetry (%) 98 Oxygen Delivery Method Room Air Intake Visit Reasons: 3mth f/u - see comments Intake Note: Patient is here to follow up on DM, HTN, PVD. 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: Present Accompanied by: Daughter Allergies Sulfa (Sulfonamide Antibiotics) (SULFA (SULFONAMIDE ANTIBIOTICS)) Allergy (Unknown, Verified 03/09/25 10:30) RASH sulfamethoxazole Allergy (Unknown, Verified 03/09/25 10:30) rash morphine (MORPHINE) Adverse Reaction (Unknown, Verified 03/09/25 10:30) VOMITING Tobacco use date assessed: 03/09/25 Fall risk assessment: No Falls in past year Last assessed Fall Risk: 03/09/25 Dental Screening Dental Screen Date: 08/25/24 [facility] Medical History (Updated 01/02/25 @ 20:12 by Tommie Chavis MD) Type 2 diabetes mellitus with foot ulcer 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 Sister Mental health disorder Maternal Aunt Colon cancer Social History Household Members: Spouse Housing: Apartment Do you presently have visiting nurse or other home services: No Alcohol intake: current Alcohol intake frequency: does not drink Patient Tobacco Use Status: Current everyday Tobacco user Tobacco use type: Cigarette Cigarette Packs Per Day: 0.5 Cigarettes Per Day: 10 Years Smoked: 25 e-Cigarette/Vaping Use: Never Used Second Hand Smoke Exposure: Yes service: No Current occupational status: employed Cognitive needs: No Hearing needs: No Vision needs: Yes (Glasses) Questionnaire PHQ-9 Over the last 2 weeks, how often have you been bothered by any of the following problems? 1. Little interest or pleasure in doing things: not at all 2. Feeling down, depressed, or hopeless: not at all 3. Trouble falling or staying asleep, or sleeping too much: not at all 4. Feeling tired or having little energy: not at all 5. Poor appetite or overeating: not at all 6. Feeling bad about yourself - or that you are a failure or have let yourself or your family down: not at all 7. Trouble concentrating on things, such as reading the newspaper or watching television: not at all 8. Moving or speaking so slowly that other people could have noticed. Or the opposite - being so fidgety or restless that you have been moving around a lot more than usual: not at all 9. Thoughts that you would be better off or of hurting yourself in some way: not at all Total score: 0 Depression Screening Interpretation: Negative Depression Screening Done: Yes Source: Developed by Drs. Sujit Poole, Jazmyn Minor, Rick Ross and colleagues, with an educational roshni from [employer]. Thrive Questionnaire Date Thrive assessed: 03/07/25 I am a: Patient What is your living situation today?: I have a steady place to live Within the past 12 months, did the food you bought not last and you didn't have the money to get more?: Never true Within the past 12 months, did you worry whether your food would run out before you got money to buy more?: Never true Do you have trouble paying for medicines?: No Do you have trouble getting transportation to medical appointments?: Yes Do you have trouble paying your heating and electricity bill?: No Do you have trouble taking care of your child, family member or friend?: No Do you have trouble with day-to-day activities such as bathing, preparing meals, shopping, managing finances, etc.?: No Are you currently unemployed and looking for a job?: No Are you interested in more education?: No Please select the resources that you would like help with: Transportation Currently or been in a relationship where the following occur: No concerns reported THRIVE Score: 1 AUDIT C Alcohol Use Questionnaire (AUDIT-C) 1. How often do you have a drink containing alcohol?: Never 2. How many drinks containing alcohol do you have on a typical day when you are drinking?: 1 or 2 3. How often do you have six or more drinks on one occasion?: Never Total Score: 0 MONIKA-7 AMB Questionnaire MONIKA-7 Date MONIKA - 7 assessed: 08/25/24 Feeling nervous, anxious, or on edge: 1 = Several days Not being able to stop or control worryin = Not at all Worrying too much about different things: 0 = Not at all Trouble relaxin = Several days Being so restless that it is hard to sit still: 0 = Not at all Becoming easily annoyed or irritable: 0 = Not at all Feeling afraid as if something awful might happen: 0 = Not at all Total MONIKA-7 score (0-4 normal; 5-9 mild; 10-14 moderate; 15-21 severe): 2 Source: Developed by Drs. Sujit Poole, Jazmyn Minor, Rick Ross and colleagues, with an educational roshni from [employer]. Physical exam (Primary Care) Vital Signs: Last Vital Signs Temp 96.6 F L 03/09/25 10:31 Pulse 76 03/09/25 10:31 BP 130/74 03/09/25 10:31 Pulse Ox 98 03/09/25 10:31 Oxygen Delivery Method Room Air 03/09/25 10:31 BMI result Body Mass Index 27.1 Tobacco/Smoking Status: Tobacco use Status Tobacco use date assessed 03/09/25 03/09/25 10:45 Patient Tobacco Use Status Current everyday Tobacco 03/09/25 10:45 Tobacco use type Cigarette 03/09/25 10:45 e-Cigarette/Vaping Use Never Used 03/09/25 10:45 PHQ-9: PHQ-9 Score PHQ-9: Total score 0 03/09/25 10:45 Depression Screening Interpretation: Negative Thrive Assessment: Date of Thrive Assessment Date Thrive assessed 03/07/25 03/09/25 10:45 Currently or been in a relationship where the following occur: No concerns reported Results AMB Hemoglobin A1c AMB Hemoglobin A1c 7.5 % Last Edit by AMIRA Zarco on 03/09/25 10:47 Results Reviewed Results Reviewed: Laboratory Last Values Hgb A1c (Clinic) 7.5 % (4.0-6.0) H 03/09/25 10:29 Coding Level of Care Code Est Pt Level 4 (42408) Complex EM visit Add On G2211 Diagnoses Type 2 diabetes mellitus with foot ulcer, with long-term current use of insulin E11.621; L97.509; Z79.4 Diabetes mellitus intermediate designer insulin use: with alf use Assessment & Plan Assessment & Plan (1) Type 2 diabetes mellitus with foot ulcer: Code(s): E11.621 - Type 2 diabetes mellitus with foot ulcer; L97.509 - Non-pressure chronic ulcer of other part of unspecified foot with unspecified severity Category: Medical Qualifiers: Diabetes mellitus intermediate designer insulin use: with intermediate designer use Qualified Code(s): E11.621 - Type 2 diabetes mellitus with foot ulcer; L97.509 - Non- pressure chronic ulcer of other part of unspecified foot with unspecified severity; Z79.4 - correction (current) use of insulin Plan: History of Present Illness - The patient is a 64-year-old female presenting with evaluation of a cyst, management of nicotine dependence, and assessment of palpitations. - A cyst was identified on a previous MRI, and a follow-up CAT scan is planned due to insurance constraints on MRI coverage. - The patient is seeking to quit smoking and plans to use a nicotine patch, having previously attempted this method without success. - The patient reports palpitations and has a family history of myocardial infarction, prompting an EKG order. Social History - The patient has a history of smoking and is currently attempting to quit using a nicotine patch. Review of Systems - Cardiovascular: Reports palpitations. Denies chest pain. - Endocrine: Reports stable blood glucose levels. - Neurological: Denies changes in vision. - Musculoskeletal: Denies foot infections but notes a persistent hump on the foot. Physical Exam General: Cooperative and healthy appearing Nutritional Appearance: Well nourished Orientation/consciousness: Patient oriented x3 Limitations: No limitations Head: Normal to inspection General: Appearance normal, both eyes and all related structures Neck: Normal visual inspection Chest: Normal palpation of entire chest wall Respiratory: N ormal respiratory effort Neurology: Patient oriented x3, reports occasional fluttering sensations in the chest area, EKG ordered for further evaluation. Results Plan 1. Cyst On An Unspecified Organ - A CAT scan is planned to further evaluate the cyst due to insurance constraints on MRI coverage. 2. Nicotine Dependence - The patient will use a nicotine patch to aid in smoking cessation, with instructions to gradually reduce cigarette consumption before starting the patch. 3. Palpitations - An EKG is ordered to assess palpitations, considering the family history of myocardial infarction. Discussion Notes I discussed the plan to perform a CAT scan to evaluate the cyst further, given the insurance constraints on MRI coverage. We also talked about using a nicotine patch for smoking cessation, emphasizing the importance of reducing cigarette consumption before starting the patch. Additionally, I ordered an EKG to investigate the palpitations, considering the patient's family history of myocardial infarction. Patient Instructions - Schedule and complete the CAT scan as ordered. - Begin using the nicotine patch after reducing cigarette consumption to six per day. - Complete the EKG as ordered to assess palpitations. Orders: Orders AMB Hemoglobin A1c Today E11.621 - Type 2 diabetes mellitus with foot ulcer, L97.509 - Non-pressure chronic ulcer of other part of unspecified foot with unspecified severity, Z79.4 - correction (current) use of insulin
[2025-03-09 10:31] VITALS: BP 130/74; PULSE 76; TEMP 35.9; O2SAT 98; BMI 27.1
--- OUTSIDE RECORDS SUMMARY | 2025-03-09 12:29 | XMS_ITS | Patient Health Record ---
Author Organization [facility] Address [address] [place] [address] Care Team Providers Care Client Insights Consultant Name Role Phone TOMMIE PEREZ Primary Care Provider Sujit Jacobo [phone] Allergies No Known Allergies Results Component Value Reference Range Notes Complete Blood Count Auto Di ff Reviewed date:08/09/2024 12:19:02 PM Interpretation: Performing Lab:[facility], [address] [place] [phone] Notes/Report: White Blood Count 11.4 4.8-10.8 X10*3/uL [...] Panel Reviewed date:08/09/2024 12:19:15 PM Interpretation: Performing Lab:[facility], [address] [place] [phone] Notes/Report: Bilirubin Total 5.9 0.0-1.0 mg/dL Mild Icteru s. Bilirubin Direct 4.9 0.0-0.5 mg/dL Mild Icter us. Aspartate Amino Transferase 135 5-31 U/L Alanine Aminotransferase 198 0-31 U/L Total Protein 6.4 6.5-8.0 g/dL Albumin Level 3.1 3.5-5.0 g/dL Alkaline Phosphatase 233 39-117 U/L Basic Metabolic Panel Fastin g Reviewed date:08/09/2024 12:19:27 PM Interpretation: Performing Lab:[facility], [address] [place] [phone] Notes/Report: Sodium 135 135-145 mmol/L Potassium 4.0 [...] ff Reviewed date:08/11/2024 09:25:00 AM Interpretation: Performing Lab:[facility], [address] [place] [phone] Notes/Report: White Blood Count 8.6 4.8-10.8 X10*3/uL [...] Panel Reviewed date:08/11/2024 09:25:20 AM Interpretation: Performing Lab:[facility], [address] [place] [phone] Notes/Report: Bilirubin Total 1.6 0.0-1.0 mg/dL Bilirubin Direct 1.1 0.0-0.5 mg/dL Aspartate Amino Transferase 37 5-31 U/L Alanine Aminotransferase 100 0-31 U/L Total Protein 5.8 6.5-8.0 g/dL Albumin Level 2.6 3.5-5.0 g/dL Alkaline Phosphatase 198 39-117 U/L Basic Metabolic Panel Fastin g Reviewed date:08/11/2024 09:26:02 AM Interpretation: Performing Lab:[facility], [address] [place] [phone] Notes/Report: Sodium 136 135-145 mmol/L Potassium 3.9 [...] Lipase Reviewed date:08/11/2024 09:26:12 AM Interpretation: Performing Lab:[facility], [address] [place] [phone] Notes/Report: Lipase 24 8-78 U/L MR abdomen wo/w con Reviewed date:03/02/2025 11:04:18 AM Interpretation: Performing Lab: Notes/Report: [address] [address] Magnetic Resonance Report Signed Patient: Aarti Meyer MR#: [id number] 15 : 1960 Acct:[id number] Age/Sex: 63 / F ADM Date: 09/16/24 Loc: HO.MRI Attending Dr: Sujit Lopez MD Ordering Physician: Sujit Lopez MD Date of Service: 09/16/24 Procedure(s): MR abdomen wo/w con Accession Number(s): [id number] cc: Tommie Perez MD; Sujit Lopez MD EXAMINATION: MRI Abdomen without and with contrast HISTORY: PANCREATITIS, ELEVATED LFT, BILE DUCT ABN COMPARISON: Comparison is made with the prior examination dated 08/09/2024. TECHNIQUE: Axial in and out of phase T1-weighted gradient echo, axial diffusion weighted, and axial and coronal HASTE T2 with fat saturation images were obtained through the abdomen. 3D MRCP Reconstructed and thin and thick slab images of the biliary tree were obtained. Subsequently, fat suppressed axial and coronal T1-weighted images were obtained after the intravenous administration of 7 mL Gadavist. FINDINGS: There is no significant loss of signal intensity within the liver on opposed phase imaging to suggest steatosis. There is no enhancing liver mass. The degree of dilatation of the common bile duct has decreased since the prior study. Proximally, the common bile duct measures up to 15 mm (previously 23 mm) and distally the common bile duct measures up to 8 mm (previously 10 mm). No intraluminal filling defects are identified to suggest choledocholithiasis. The patient is status post cholecystectomy. There is a 6.2 x 2.5 x 4.4 cm fluid collection containing internal debris anterior to the pancreatic body which demonstrates rim enhancement, but no central enhancement. Findings are consistent with a pseudocyst. The previously seen fluid medial to the liver about the pancreatic head and distal tail is no longer identified. The pancreatic duct is normal in caliber. The spleen is top normal in size. The right adrenal gland is unremarkable. Again seen is a 3.1 x 2.0 cm left adrenal mass which demonstrates loss of signal intensity on opposed phase imaging consistent with an adenoma. The kidneys are unremarkable. No retroperitoneal lymphadenopathy is identified. MR/MR abdomen wo/w con IMPRESSION: 1. Decrease in caliber of the common bile duct since the prior study as described. No evidence of choledocholithiasis. 2. 6.2 x 2.5 x 4.4 cm pseudocyst anterior to the pancreatic body. 3. 3.1 x 2.0 cm left adrenal adenoma. Electronically signed by: Sujit Reyes MD 09/16/2024 02:24 PM EDT Dictated By: Sujit Reyes MD Signed By: <Electronically signed by Sujit Reyes MD in OV> 09/16/24 1424 DD/ 1145 TD/TT: 09/16/24 1215 Pastoral Worker: Reason For Referral Referring Provider First Name TOMMIE Referring Provider Last Name CHRIS Referred Organization [facility] Referred Provider Sujit Lopez Referred Address [address] [place] [id number], Referred Provider Specialty Gastroentero logy General Notes Ava Fuentes 2024 10:31:57 AM > spoke with Rina at Dr. Peerz's office and requested a tai referral for visit with Dr. Lopez on [phone]. Pt needs to choose a pcp then notify Dr. Fitzgerald office needs a referral., Ava Fuentes 03/02/2025 02:26:17 PM > voice message left on the patient's voice mail that she needs to choose a pcp so Dr. Fitzgerald office can put a referral in the system for her, Ava Fuentes 03/06/2025 03:31:52 PM >no referral required Referral Priority Routine Medications Medication SIG (Take, Route, Frequency, Duration) [...] UNIT/ML as directed Subcutaneous 03/02/2025 Act roxana Immunizations Vaccine Route Administration Date Status Comme nts Influenza Unknown 04/12/2024 Administered Social History Tobacco Use: Social History Observation [...] Problem Status W/U Status Risk Notes Problem Colon cancer screening (393538837) Colon cancer screening (Z12.11) Active confirmed Problem Disorder of biliary tract (653372732) Bile duct abnormality (K83.9) Active confirmed Problem Elevated liver enzymes level (063344282) Elevated liver function tests (R94.5) Active confirmed Problem Pancreatic pseudocyst (101567285) Pancreatic pseudocyst (K86.3) Active confirmed Problem Gallstone pancreatitis (76098023) Pancreatitis, gallstone (K85.10) Active confirmed Problem History of pancreatitis (72120718177023) History of pancreatitis (Z87.19) Active confirmed Vital Signs Temperature 98.6 degrees Fahrenheit 03/02/2025 Blood pressure diastolic 01 mm Hg 03/02/2025 Height 65 in 03/02/2025 Blood pressure systolic 001 mm Hg 03/02/2025 Weight 162.8 lbs 03/02/2025 BMI 27.09 kg/m2 03/02/2025 Encounters Encounter Location Date Provider Diagnosis [facility] [address] [place] [phone] 03/02/2025 Sujit Lopez Pancreatic pseudocys t K86.3 ; Colon cancer screening Z12.11 and History of pancreatitis Z87.19 [facility] [address] [place] [phone] 09/04/2024 Sujit Lopez Pancreatitis, gallstone K85.10 ; Elevated liver function tests R94.5 and Bile duct abnormality K83.9 [facility] [address] [place] [phone] 12/28/2024 Sujit Lopez [facility] [address] [place] [address] 03/02/2025 Sujit Lopez Assessments Encounter Date Diagnosis (ICD Code) Assessment Notes Treatment Notes Treatment Clinical Notes Section Notes 03/02/2025 Colon cancer screening (ICD-10 - Z12.11) [...] keep you advised of her progress. 03/02/2025 Pancreatic pseudocyst (ICD-10 - K86.3) Overall, [...] to keep you advised of her progress. 09/04/2024 Pancreatitis, gallstone (ICD-10 - K85.10) 03/02/2025 History of pancreatitis (ICD-10 - Z87.19) [...] to keep you advised of her progress. 09/04/2024 Elevated liver function tests (ICD-10 - R94.5) 09/04/2024 Bile duct abnormality (ICD-10 - K83.9) Plan Of Treatment Pending Test Test Name Order Date BUN 03/02/2025 LIVER PROFILE 03/02/2025 LIVER PROFILE 09/04/2024 CA 19-9 09/04/2024 CA 19-9 03/02/2025 CT ABD & PELVIS WITH CONTRAST 03/02/2025 MRI ABD W&WO CONTRAST 09/04/2024 Creatinine 03/02/2025 Amylase 03/02/2025 Lipase 09/04/2024 Lipase 03/02/2025 Next Appt Details Provider Name:Sujit Lopez , 10/03/2025 10:20:00 AM, [address], [address], [place], [address], Insurance Providers Payer Name Payer Address Payer Phone Subscriber Number Group Number Insured Name Patient Relationship to Insured Coverage Start Date Coverage End Date [facility] [address] [place] [phone] [id number] AARTI MEYER Self - patient is the insured MEDICARE OF [place] [address] [place] [address] [id number] AARTI MEYER Self - patient is the insured Medical (General) History Medical History History ICD Code IDDM- has had retina laser surgery- lega lly blind Denies [place],CVA,Lung disease,renal disease Screening colonoscopy with Vic Estrada 05/2018 with only a hyperplastic polyp HTN Pancreatitis 07/2024 from a p robable passed CBD stone- neg. MRCP except for a dilated CBD; F/U CT in 08/2024 showed improvement of the CBD but a pseudocyst measuring 6 x 4 x 2 cm Surgical History Surgery Date(Month/Year) Ovarian cyst removed 2004 Partial toe amputated due to infection f rom the IDDM 2021 C-sections 1988,1989 Ectopic 1993 Appendix 1991 CCY 2010 Hospitalization History Reason Date(Month/Year) pancreatitis 08/23
== END 2025-03-09 11:06 | disposition home or self-care (01) ==
LOC: HO.HMCH 10:13
PROVIDERS: PCP Internal Medicine; Visit Provider Internal Medicine
DX: E11.621 Type 2 diabetes mellitus with foot ulcer (principal); L97.509 Non-pressure chronic ulcer of other part of unspecified foot with unspecified severity; Z79.4 Long term (current) use of insulin

== ENCOUNTER → 2025-03-09 10:12 | Outpatient (BNVA) | payer MEDICARE, SELFPAY | PROVIDERS: PCP Internal Medicine; Visit Provider Internal Medicine | DX: E11.621 Type 2 diabetes mellitus with foot ulcer (principal); L97.509 Non-pressure chronic ulcer of other part of unspecified foot with unspecified severity; R00.2 Palpitations; F17.210 Nicotine dependence, cigarettes, uncomplicated; Z79.4 Long term (current) use of insulin; Z13.31 Encounter for screening for depression | CPT/HCPCS: 83036; 96127; 99212 ==

== ENCOUNTER 2025-06-28 11:40 | Outpatient (AMB) | payer MEDICARE, SELFPAY ==
--- OUTSIDE RECORDS SUMMARY | 2024-12-28 10:00 | XMS_ITS ---
Author Organization [facility] Address [address] [place] [address] Care Team Providers Care Ore Smelter Name Role Phone ANASTACIO PEREZ Primary Care Provider Sujit Jacobo [phone] REASON FOR VISIT Patient presents today for a hx pancreatitis, elevated lft's Encounters Encounter Location Date Provider Diagnosis [facility] [address] [place] [address] 12/28/2024 Sujit Lopez Plan Of Treatment Next Appt Details Provider Name:Sujit Lopez , 10/03/2025 10:20:00 AM, [address], [address], [place], [address], Progress Notes * JASPAL HERNANDEZB:1960 (64 yo F)Acc No.[id number]:12/28/2024 Progress Notes Patient: LETICIA GRAVES Provider: Laverne Lopez MD :1960 A ge:64 Y S ex:Female Date:12/28/2024 Address:[address] [place], [place] [id number] Pcp:ANASTACIO PEREZ Subjective: * Chief Complaints: * P atient presents today for a hx pancreatitis, elevated lft's Billing Information: * Procedure Codes: * The named appointment provid er may or may not be the originator of this progress note, and it is not deemed complete until electronically signed by the appointment provider. Sign off status: Pending * Provider: Laverne Lopez MD Date: 12/28/2024 Generated for Printi ng/Karen/Kortney on: 1 01:25 PM EST
--- NOTE | 2025-06-28 11:47 | A.OFFPC_ITS ---
Vital Signs 06/28/25 11:48 Height 5 ft 5 in Weight 168 lb BMI 28.0 BP 140/60 H Blood Pressure Location Lt brachial Position Sitting Pulse 139 H Pulse Source Pulse Oximeter Temp 97.3 F Temp Source Temporal Artery Scan Pulse Oximetry (%) 90 L Oxygen Delivery Method Room Air Intake Visit Reasons: Infection on toe Intake Note: Patient is here to follow up on Infection on second toe on right foot. Interior Horticulturist Required: No Chisel Grinder: Present Accompanied by: Spouse Allergies Sulfa (Sulfonamide Antibiotics) (SULFA (SULFONAMIDE ANTIBIOTICS)) Allergy (Unknown, Verified 06/30/25 11:23) RASH sulfamethoxazole Allergy (Unknown, Verified 06/30/25 11:23) rash morphine (MORPHINE) Adverse Reaction (Unknown, Verified 06/30/25 11:23) VOMITING Medication List - Last Reconciled 06/30/25 by Tommie Chavis MD insulin aspart (niacinamide) 100 unit/mL (3 mL) (Fiasp FlexTouch U-100 Insulin) 15 units subcut TIDWM insulin glargine (Basaglar KwikPen U-100 Insulin) 50 units (0.5 mL) subcut BEDTIME insulin syringes (disposable) As directed lisinopril 10 mg PO DAILY metformin 1,000 mg PO BID pen needle, diabetic once a daily sitagliptin phosphate (Januvia) 100 mg PO DAILY Tobacco use date assessed: 06/28/25 Fall risk assessment: No Falls in past year Last assessed Fall Risk: 06/28/25 Dental Screening Dental Screen Date: 08/25/24 HPI Infection on toe HPI Details 64-year-old female presents to the [facility] for a sick visit. Patient is complaining of foul-smelling discharge from her right foot 2nd toe. Symptoms have been going on for the past 2 weeks. She noticed redness on the top of her foot extending upwards into her leg. Low-grade fever. 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 Sister Mental health disorder Maternal Aunt Colon cancer Social History Household Members: None Housing: Apartment Do you presently have visiting nurse or other home services: No Alcohol intake: current Alcohol intake frequency: does not drink Patient Tobacco Use Status: Current everyday Tobacco user Tobacco use type: Cigarette Cigarette Packs Per Day: 0.5 Cigarettes Per Day: 10 Years Smoked: 30 e-Cigarette/Vaping Use: Never Used Second Hand Smoke Exposure: Yes service: No Current occupational status: employed Cognitive needs: No Hearing needs: No Vision needs: Yes (Glasses) Questionnaire Thrive Questionnaire Date Thrive assessed: 03/07/25 What is your living situation today?: I have a steady place to live Within the past 12 months, did the food you bought not last and you didn't have the money to get more?: Never true Within the past 12 months, did you worry whether your food would run out before you got money to buy more?: Never true Do you have trouble paying for medicines?: No Do you have trouble getting transportation to medical appointments?: Yes Do you have trouble paying your heating and electricity bill?: No Do you have trouble taking care of your child, family member or friend?: No Do you have trouble with day-to-day activities such as bathing, preparing meals, shopping, managing finances, etc.?: No Are you currently unemployed and looking for a job?: No Are you interested in more education?: No Currently or been in a relationship where the following occur: No concerns re ported THRIVE Score: 1 MONIKA-7 AMB Questionnaire MONIKA-7 Date MONIKA - 7 assessed: 08/25/24 Source: Developed by Drs. Sujit Poole, Jazmyn Minor, Rick Ross and colleagues, with an educational roshni from [employer]. Physical exam (Primary Care) Vital Signs: Last Vital Signs Temp 97.3 F 06/28/25 11:48 Pulse 139 H 06/28/25 11:48 BP 140/60 H 06/28/25 11:48 Pulse Ox 90 L 06/28/25 11:48 Oxygen Delivery Method Room Air 06/28/25 11:48 BMI result Body Mass Index 28.0 Tobacco/Smoking Status: Tobacco use Status Tobacco use date assessed 06/28/25 06/28/25 11:58 Patient Tobacco Use Status Current everyday Tobacco 06/28/25 11:58 Tobacco use type Cigarette 06/28/25 11:58 e-Cigarette/Vaping Use Never Used 06/28/25 11:58 Thrive Assessment: Date of Thrive Assessment Date Thrive assessed 03/07/25 06/28/25 11:58 Currently or been in a relationship where the following occur: No concerns reported Const Other: Foot: Erythematous in the dorsum of the foot. Foul-smelling discharge on the 2nd toe. Great toe is amputated. Results AMB Hemoglobin A1c AMB Hemoglobin A1c 9.5 % Last Edit by AMIRA Zarco on 06/28/25 12:02 Results Reviewed Results Reviewed: Laboratory Last Values Hgb A1c (Clinic) 9.5 % (4.0-6.0) H 06/28/25 11:47 Coding Level of Care Code Est Pt Level 4 (56583) Add On Problem Visit Only Diagnoses Cellulitis of foot L03.119 Assessment & Plan Assessment & Plan (1) Cellulitis of foot: Code(s): L03.119 - Cellulitis of unspecified part of limb Plan: High suspicion for osteomyelitis. Wound clinic was contacted to determine if they could debride the wound. They were unable to accommodate the patient today. Patient was sent to the emergency room. Orders: Orders AMB Hemoglobin A1c 06/28/25 E11.621 - Type 2 diabetes mellitus with foot ulcer, L97.509 - Non-pressure chronic ulcer of other part of unspecified foot with unspecified severity, Z79.4 - salvage determiner (current) use of insulin Medications: Refilled metformin 1,000 mg PO BID 180 tabs 1RF
[2025-06-28 11:48] VITALS: BP 140/60; PULSE 139; TEMP 36.3; O2SAT 90; BMI 28.0
--- OUTSIDE RECORDS SUMMARY | 2025-06-28 13:25 | XMS_ITS | Patient Health Record ---
Author Organization [facility] Address [address] [place] [address] Care Team Providers Care Yard Caller Name Role Phone TOMMIE PEREZ Primary Care Provider Sujit Jacobo [phone] Allergies No Known Allergies Results Component Value Reference Range Flag Notes Complete Blood Count Auto Di ff Reviewed date:08/09/2024 12:19:02 PM Interpretation: Performing Lab:[facility], [address] [place] [phone] Notes/Report: White Blood Count 11.4 4.8-10.8 X10*3/uL H Red Blood Count 4.02 4.20-5.50 X10*6/uL L Hemoglobin 11.7 12.0-16.0 g/dl L Hematocrit 34.1 37.0-47.0 % L Mean Corpuscular Volume 84.8 80.0-98.0 fL N Mean Corpuscular Hemoglobin 29.1 27.0-33.0 pg N Mean Corpuscular HGB Conc 34.3 31.0-35.0 g/dl N Red Cell Distribution Width 14.1 11.0-16.0 % N Platelet Count 198 160-400 X10*3/uL N Mean Platelet Volume 10.0 9.4-12.3 fL N Neutrophils Percent Auto 85.3 45-73 % H Imm Gran Pct Auto 0.2 0.0-0.4 % N Lymphocytes Percent Auto 8.3 20-40 % L Monocytes Percent Auto 5.9 2-11 % N Eosinophils Percent Auto 0.0 0-4 % N Basophils Percent Auto 0.3 0-2 % N NRBC Pct Auto 0.0 0.0-0.2 /100WBC N Neutrophils Absolute Auto 9.7 2.0-8.3 x10*3/uL H Imm Gran Abs Auto 0.02 0.00-0.03 X10*3/uL N Lymphocytes Absolute Auto 0.9 1.2-4.9 X10*3/uL L Monocytes Absolute Auto 0.7 0.1-1.2 X10*3/uL N Eosinophils Absolute Auto 0.0 0.0-0.4 X10*3/uL N Basophils Absolute Auto 0.0 0.0-0.2 X10*3/uL N NRBC Abs Auto 0.000 0.0-0.012 X10*3/uL N Liver Panel Reviewed date:08/09/2024 12:19:15 PM Interpretation: Performing Lab:[facility], [address] [place] [phone] Notes/Report: Bilirubin Total 5.9 0.0-1.0 mg/dL H Mild I cterus. Bilirubin Direct 4.9 0.0-0.5 mg/dL H Mild Icterus. Aspartate Amino Transferase 135 5-31 U/L H Alanine Aminotransferase 198 0-31 U/L H Total Protein 6.4 6.5-8.0 g/dL L Albumin Level 3.1 3.5-5.0 g/dL L Alkaline Phosphatase 233 39-117 U/L H Basic Metabolic Panel Fastin g Reviewed date:08/09/2024 12:19:27 PM Interpretation: Performing Lab:[facility], [address] [place] [phone] Notes/Report: Sodium 135 135-145 mmol/L N Potassium 4.0 3.3-5.1 mmol/L N Chloride 102 96-108 mmol/L N Carbon Dioxide 24 22-29 mmol/L N Anion Gap 13 12-20 N Blood Urea Nitrogen 70 9-16 mg/dL H Creatinine 1.50 0.5-1.4 mg/dL H Creatinine Clr Calc Pharmacy 40.0 Provided height [...] 15 mL/min/1.73m2 Glucose Fasting 134 60-99 mg/dL H A fasting glucose of 126 mg/dl or greater on more than one occasion is considered diagnostic of diabetes. Calcium 8.2 8.4-10.2 mg/dL L Complete Blood Count Auto Di ff Reviewed date:08/11/2024 09:25:00 AM Interpretation: Performing Lab:[facility], [address] [place] [phone] Notes/Report: White Blood Count 8.6 4.8-10.8 X10*3/uL N Red Blood Count 3.32 4.20-5.50 X10*6/uL L Hemoglobin 9.7 12.0-16.0 g/dl L Hematocrit 28.0 37.0-47.0 % L Mean Corpuscular Volume 84.3 80.0-98.0 fL N Mean Corpuscular Hemoglobin 29.2 27.0-33.0 pg N Mean Corpuscular HGB Conc 34.6 31.0-35.0 g/dl N Red Cell Distribution Width 14.0 11.0-16.0 % N Platelet Count 196 160-400 X10*3/uL N Mean Platelet Volume 9.9 9.4-12.3 fL N Neutrophils Percent Auto 76.9 45-73 % H Imm Gran Pct Auto 0.9 0.0-0.4 % H Lymphocytes Percent Auto 13.1 20-40 % L Monocytes Percent Auto 8.7 2-11 % N Eosinophils Percent Auto 0.1 0-4 % N Basophils Percent Auto 0.3 0-2 % N NRBC Pct Auto 0.0 0.0-0.2 /100WBC N Neutrophils Absolute Auto 6.6 2.0-8.3 x10*3/uL N Imm Gran Abs Auto 0.08 0.00-0.03 X10*3/uL H Lymphocytes Absolute Auto 1.1 1.2-4.9 X10*3/uL L Monocytes Absolute Auto 0.8 0.1-1.2 X10*3/uL N Eosinophils Absolute Auto 0.0 0.0-0.4 X10*3/uL N Basophils Absolute Auto 0.0 0.0-0.2 X10*3/uL N NRBC Abs Auto 0.000 0.0-0.012 X10*3/uL N Liver Panel Reviewed date:08/11/2024 09:25:20 AM Interpretation: Performing Lab:[facility], [address] [place] [phone] Notes/Report: Bilirubin Total 1.6 0.0-1.0 mg/dL H Bilirubin Direct 1.1 0.0-0.5 mg/dL H Aspartate Amino Transferase 37 5-31 U/L H Alanine Aminotransferase 100 0-31 U/L H Total Protein 5.8 6.5-8.0 g/dL L Albumin Level 2.6 3.5-5.0 g/dL L Alkaline Phosphatase 198 39-117 U/L H Basic Metabolic Panel Fastin g Reviewed date:08/11/2024 09:26:02 AM Interpretation: Performing Lab:[facility], [address] [place] [phone] Notes/Report: Sodium 136 135-145 mmol/L N Potassium 3.9 3.3-5.1 mmol/L N Chloride 103 96-108 mmol/L N Carbon Dioxide 26 22-29 mmol/L N Anion Gap 11 12-20 L Blood Urea Nitrogen 27 9-16 mg/dL H Creatinine 0.89 0.5-1.4 mg/dL N Creatinine Clr Calc Pharmacy 67.4 Provided height [...] 15 mL/min/1.73m2 Glucose Fasting 167 60-99 mg/dL H A fasting glucose of 126 mg/dl or greater on more than one occasion is considered diagnostic of diabetes. Calcium 8.0 8.4-10.2 mg/dL L Lipase Reviewed date:08/11/2024 09:26:12 AM Interpretation: Performing Lab:[facility], [address] [place] [address] Notes/Report: Lipase 24 8-78 U/L N MR abdomen wo/w con Reviewed date:03/02/2025 11:04:18 AM Interpretation: Performing Lab: Notes/Report: [facility] [address] 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 Perez's office and requested a tai referral for visit with Dr. Lopez on [phone]. Pt needs to choose a pcp then [...] Duration) Notes Start Date End Date Status SITagliptin 100 MG Tablet 1 tablet Orall y Once a day; Duration: 30 day(s) 03/02/2025 Unknown metFORMIN HCl 1000 MG Tablet 1 tablet with a meal Orally Once a day; Duration: 30 day(s) 03/02/2025 Unknown Lisinopril 10 MG Tablet 1 tablet Orally Once a day; Duration: 30 day(s) 03/02/2025 Unknown Basaglar KwikPen 100 UNIT/ML Solution Pen-injector as directed Subcutaneous 03/02/2025 Unk nown Insulin Aspart 100 UNIT/ML Solution Pen-injector as directed Subcutaneous 03/02/2025 Unk nown Immunizations Vaccine Route Administration Date Status Comme nts Influenza Unknown 04/12/2024 Administered Social History Tobacco Use: Social History Observation Description Date Details (start date - stop date) Current Smoker NA - NA Social History Drug/Alcohol: Social Info Question Answer Notes AUDIT-C (Standard) Did you have a drink containing alcohol in the past year? 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) Active confirmed Problem Elevated liver enzymes level (127789276) Elevated liver function tests (R94.5) Active confirmed Problem Pancreatic pseudocyst (365346602) Pancreatic pseudocyst (K86.3) Active confirmed Problem Gallstone pancreatitis (18174701) Pancreatitis, gallstone (K85.10) Active confirmed Problem History of pancreatitis (01177309567845) History of pancreatitis (Z87.19) Active confirmed Vital Signs Temperature 98.6 degrees Fahrenheit 03/02/2025 Blood pressure diastolic 01 mm Hg 03/02/2025 Height 65 in 03/02/2025 Blood pressure systolic 001 mm Hg 03/02/2025 Weight 162.8 lbs 03/02/2025 BMI 27.09 kg/m2 03/02/2025 Encounters Encounter Location Date Provider Diagnosis [facility] [address] [place] [phone] 03/02/2025 Sujit Lopez Pancreatic pseudocys t K86.3 ; Colon cancer screening Z12.11 and History of pancreatitis Z87.19 [facility] [address] [place] [phone] 09/04/2024 Sujit Lopez Pancreatitis, gallstone K85.10 ; Elevated liver function tests R94.5 and Bile duct abnormality K83.9 [facility] [address] [place] [phone] 12/28/2024 Sujit Lopez [facility] [address] [place] [address] 03/02/2025 Sujit Lopez [facility] [address] [place] [address], [place] [address] 03/02/2025 Sujit Lopez [facility] [address] [place] [address], [place] [address] 03/02/2025 Sujit Lpoez Assessments Encounter Date Diagnosis (ICD Code) Assessment [...] progress. 09/04/2024 Pancreatitis, gallstone (ICD-10 - K85.10) 09/04/2024 Elevated liver function tests (ICD-10 - R94.5) 03/02/2025 History of pancreatitis (ICD-10 - Z87.19) [...] keep you advised of her progress. 09/04/2024 Bile duct abnormality (ICD-10 - K83.9) Plan Of Treatment Pending Test Test Name Order Date BUN 03/02/2025 LIVER PROFILE 03/02/2025 LIVER PROFILE 09/04/2024 CA 19-9 03/02/2025 CA 19-9 09/04/2024 CT ABD & PELVIS WITH CONTRAST 03/02/2025 MRI ABD W&WO CONTRAST 09/04/2024 Creatinine 03/02/2025 Amylase 03/02/2025 Lipase 03/02/2025 Lipase 09/04/2024 Next Appt Details Provider Name:Sujit Lux John , 10/03/2025 10:20:00 AM, [address] [place] [address], [address], [place], [address], Insurance Providers Payer Name Payer Address Payer Phone Subscriber Number Group Number Insured Name Patient Relationship to Insured Coverage Start Date Coverage End Date [facility] [address] [place]ENA Elam [phone] [id number] AARTI MEYER Self - patient is the insured MEDICARE OF [place] [address] [place] [address] [id number] AARTI MEYER Self - patient is the insured 1 Medical (General) History Medical History History ICD Code IDDM- has had retina laser surgery- jeremynik abhijeetthai blind Denies MT,CVA,Lung disease,renal disease Screening colonoscopy with Vic Estrada 05/2018 with only a hyperplastic polyp HTN Pancreatitis 07/2024 from a p robable passed CBD stone- neg. MRCP except for a dilated CBD; F/U CT in 08/2024 showed improvement of the CBD but a pseudocyst measuring 6 x 4 x 2 cm Surgical History Surgery Date(Month/Year) CCY 2011 Appendix 1992 Ectopic 1993 C-sections 1988,1989 Partial toe amputated due to infection f rom the IDDM 2021 Ovarian cyst removed 2004 Hospitalization History Reason Date(Month/Year) pancreatitis 08/23
== END 2025-06-28 12:22 | disposition home or self-care (01) ==
LOC: HO.HMCH 11:41
PROVIDERS: PCP Internal Medicine; Visit Provider Internal Medicine
DX: E11.621 Type 2 diabetes mellitus with foot ulcer (principal); L97.509 Non-pressure chronic ulcer of other part of unspecified foot with unspecified severity; Z79.4 Long term (current) use of insulin

== ENCOUNTER → 2025-06-28 12:52 | Outpatient (BNV) | payer MEDICARE, SELFPAY | PROVIDERS: PCP Internal Medicine; Visit Provider Radiology Diagnostic Radiology | DX: R09.02 Hypoxemia (principal); M79.89 Other specified soft tissue disorders | CPT/HCPCS: 71250; 73630 ==

== ENCOUNTER → 2025-06-28 15:08 | Outpatient (BNV) | payer MEDICARE, SELFPAY | PROVIDERS: Admitting Provider Student in an Organized Health Care Education/Training Program; Emergency Provider Emergency Medicine Emergency Medical Services; PCP Internal Medicine; Visit Provider Internal Medicine | DX: E11.621 Type 2 diabetes mellitus with foot ulcer (principal); L97.509 Non-pressure chronic ulcer of other part of unspecified foot with unspecified severity; Z79.4 Long term (current) use of insulin; M86.171 Other acute osteomyelitis, right ankle and foot | CPT/HCPCS: 99222 ==

== ENCOUNTER → 2025-06-28 15:08 | Outpatient (BNV) | payer MEDICARE, SELFPAY | PROVIDERS: Admitting Provider Student in an Organized Health Care Education/Training Program; Emergency Provider Emergency Medicine Emergency Medical Services; PCP Internal Medicine; Visit Provider Student in an Organized Health Care Education/Training Program | DX: M86.171 Other acute osteomyelitis, right ankle and foot (principal); E11.621 Type 2 diabetes mellitus with foot ulcer; L97.509 Non-pressure chronic ulcer of other part of unspecified foot with unspecified severity; Z79.4 Long term (current) use of insulin | CPT/HCPCS: 99222 ==

== ENCOUNTER → 2025-06-28 15:08 | Outpatient (BNV) | payer MEDICARE, SELFPAY | PROVIDERS: Admitting Provider Student in an Organized Health Care Education/Training Program; Emergency Provider Emergency Medicine Emergency Medical Services; PCP Internal Medicine; Visit Provider Surgery | DX: E11.628 Type 2 diabetes mellitus with other skin complications (principal); L08.9 Local infection of the skin and subcutaneous tissue, unspecified | CPT/HCPCS: 28810; 99024; 99222 ==

== ENCOUNTER → 2025-06-28 15:08 | Outpatient (BNV) | payer MEDICARE, SELFPAY | PROVIDERS: Admitting Provider Student in an Organized Health Care Education/Training Program; Emergency Provider Emergency Medicine Emergency Medical Services; PCP Internal Medicine; Visit Provider Student in an Organized Health Care Education/Training Program | DX: M86.171 Other acute osteomyelitis, right ankle and foot (principal) | CPT/HCPCS: 99233 ==